=== PATIENT | female | born 1950 | race Caucasian/White ===

== ENCOUNTER 2016-11-20 00:28 | Inpatient (IN) | payer OTHER ==
[2016-11-20] VITALS (10 sets, daily range): BP systolic 103–129; BP diastolic 53–83; PULSE 60–63; RESP 17–19; Ht 165.1 cm; Wt 71.5 kg
[~2016-11-20] VITALS: Ht 165.1 cm; Wt 71.5 kg
[2016-11-20] MEDS ORDERED: SOD CHLORIDE 0.9% 1,000 ML IV STA (00:54)
--- NOTE | 2016-11-20 01:43 | RADRPT ---
PROCEDURE: CT Brain without contrast. CLINICAL INDICATION: Headache, left-sided weakness. TECHNIQUE: A CT of the brain was performed utilizing axial sections from the skull base through th e vertex without contrast. Multiplanar re-formations were generated. Images were reviewed on a high- resolution PACS workstation. CTDIvol: 44.11, 44.11 mGy. DLP: 1170.37 mGy-cm. One or more of the following dose reduction techniques were used: - Automated exposure control. - Adjustment of the mA and/or kV according to patient size. - Use of iterative reconstruction technique. COMPARISON: None available FINDINGS: The examination is limited by patient motion. There is no cerebral volume loss. No hydrocephalus is seen. There is no mass effect. No acute intracranial hemorrhage or extra-axial collection is identi fied. A moderate sized chronic right MCA territory infarction is identified. A small chronic left pa rietal lobe infarction is also noted. There is There is no significant mucosal disease in the paranasal sinuses. The visualized mastoid air cells are clear. The ossesous structures are unremarkable. The extracranial soft tissues are unremarkable. IMPRESSION: 1. Limited examination due to patient motion. 2. No acute intracranial pathology is identified, however a repeat CT scan should be obtained when the patient can lie still. 3. Moderate sized chronic right MCA territory infarction. 4. Small chronic left parietal lobe infarction. Critical Results were called to Dr. Cesar at 01:39 a.m. on 11/20/2016. RPTAT: HTAR .Carl Longo MD, MD Date Time Electronically viewed and signed by .Carl Longo MD, on 11/20/2016 01:42 .R/
--- NOTE | 2016-11-20 01:44 | RADRPT ---
PROCEDURE: XR Chest. CLINICAL INDICATION: Altered level of consciousness.. TECHNIQUE: Single frontal chest x-ray. COMPARISON: None. FINDINGS: Right subclavian biventricular pacemaker is present. Heart is mildly enlarged.. There is atheroscl erotic calcifications aortic knob. There is hypoventilation with diffuse ileus. No definite CHF or infiltrate. There is no pleural effusion. There is no pneumothorax. The osseous structures are u nremarkable. IMPRESSION: Right subclavian pacemaker. Cardiomegaly. Hypoventilation with atelectasis. RPTAT: HMVK .Luis Haynes MD, Date Time Electronically viewed and signed by .Luis Haynes MD, on 11/20/2016 01:44 .K/
[2016-11-20] MEDS ORDERED: ACETAMINOPHEN 325 MG TAB PO ONE (03:30)
[2016-11-20 03:36] LABS: ADD SCAN DIFF NO
[2016-11-20 03:39] LABS: BASOPHILS % 0.8 % (0.0-2.0); EOSINOPHILS # 0.2 10^3/ul (0.0-0.5); EOSINOPHILS % 4.5 % (0.0-7.0); HEMATOCRIT 36.9 % (37.0-47.0); HEMOGLOBIN 11.9 g/dl (12.0-16.0); LYMPHOCYTES # 1.7 10^3/ul (0.8-2.9); LYMPHOCYTES % 34.6 % (15.0-51.0); MEAN CORPUSCULAR HEMOGLOBIN 31.2 pg (29.0-33.0); MEAN CORPUSCULAR HGB CONC 32.2 g/dl (32.0-37.0); MEAN CORPUSCULAR VOLUME 96.6 fl (82.0-101.0); MEAN PLATELET VOLUME 10.6 fl (7.4-10.4); MONOCYTE # 0.4 10^3/ul (0.3-0.9); MONOCYTES % 8.4 % (0.0-11.0); NEUTROPHIL # 2.5 10^3/ul (1.6-7.5); NEUTROPHILS % 51.5 % (39.0-77.0); PLATELET COUNT 141 10^3/UL (140-415); RED BLOOD COUNT 3.82 10^6/ul (4.20-5.40); RED CELL DISTRIBUTION WIDTH 14.1 % (11.5-14.5); WHITE BLOOD COUNT 4.9 10^3/ul (4.8-10.8)
[2016-11-20 03:51] LABS: CHLORIDE 106 mmol/L (97-110); POTASSIUM 4.1 mmol/L (3.5-5.1); SODIUM 144 mmol/L (135-144)
[2016-11-20 03:54] LABS: ANION GAP 11 (8-16); BLOOD UREA NITROGEN 14 mg/dl (7-20); CARBON DIOXIDE 31 mmol/L (21-31); CREATININE 0.71 mg/dl (0.44-1.00)
[2016-11-20 03:55] LABS: CALCIUM 8.7 mg/dl (8.4-10.2); GLUCOSE 87 mg/dl (70-220)
[2016-11-20 04:07] LABS: INR 0.95; PARTIAL THROMBOPLASTIN TIME 28.5 Sec (25.0-35.0); PROTIME 12.7 Sec (12.2-14.2)
[2016-11-20 04:11] LABS: TROPONIN-I < 0.012 ng/ml (0.00-0.12)
[2016-11-20] MEDS ORDERED: DIPHENHYDRAMINE 50 MG CAP PO ONE (05:00)
[2016-11-20 05:18] LABS: ADD UMIC YES; URINE BILIRUBIN (Dip) NEGATIVE (NEGATIVE); URINE BLOOD (Dip) NEGATIVE (NEGATIVE); URINE COLOR LT. YELLOW (YELLOW); URINE GLUCOSE (Dip) NEGATIVE (NEGATIVE); URINE KETONES (Dip) NEGATIVE (NEGATIVE); URINE LEUKOCYTE ESTERASE (Dip) TRACE (NEGATIVE); URINE NITRITE (Dip) NEGATIVE (NEGATIVE); URINE TOTAL PROTEIN (Dip) NEGATIVE (NEGATIVE); URINE UROBILINOGEN (Dip) 0.2 E.U./dL (0.1-1.0)
[2016-11-20 05:30] LABS: BACTERIA,URINE RARE; SQUAMOUS EPITHELIAL CELL,UR FEW; URINE RBCS 0-2 /HPF (0)
[2016-11-20] MEDS ORDERED: ONDANSETRON 4 MG INJ IV PRN (05:30)
[2016-11-20] MEDS ORDERED: ACETAMINOPHEN 325 MG TAB PO PRN ×2 (05:30→07:00)
--- NOTE | 2016-11-20 05:35 | ERA ---
ER Documentation Chief Complaint Date/Time DATE: 11/20/16 TIME: 05:25 Chief Complaint HELENA RA from home, c/o BYRNES,left leg numbness and tingling HPI 66-year-old female comes emergency room for having numbness and tingling along the lateral left lower leg. And is began 24 hours ago. She also complains of a generalized headache. She states that she does get headaches from time to time. This headache came on gradually and is not the worst headache of her life. She does say that she would like morphine for her headache. She has no dizziness or visual deficits. Denies chest pain shortness of breath fevers. She also has no nausea. ROS All systems reviewed and are negative except as per history of present illness. Allergies Allergies: Coded Allergies: Penicillins (Verified Allergy, Unknown, 11/20/16) PMhx/Soc History of Surgery: Yes (TOTAL HYSTERECTOMY, CHOLECYSTECTOMY) Hx Neurological Disorder: Yes (CVA, TIA) Hx Alcohol Use: No Hx Substance Use: No Hx Tobacco Use: No Smoking Status: Never smoker Physical Exam Vitals Vital Signs Date Time Temp Pulse Resp B/P Pulse Ox O2 Delivery O2 Flow Rate FiO2 11/20/16 04:32 60 18 116/68 98 Room Air 11/20/16 03:05 62 18 120/62 100 11/20/16 01:02 Nasal Cannula 3 11/20/16 00:30 98.6 70 18 129/60 95 Physical Exam Const: [] No distress Head: Atraumatic Eyes: Normal Conjunctiva ENT: Normal External Ears, Nose and Mouth. Neck: Full range of motion..~ No meningismus. Resp: Clear to auscultation bilaterally Cardio: Regular rate and rhythm, no murmurs Abd: Soft, non tender, non distended. Normal bowel sounds Skin: No petechiae or rashes Back: No midline or flank tenderness Ext: No cyanosis, or edema Neur: Awake and alert and oriented 3, cranial nerves II through XII intact, no cerebellar deficits, campus interviews intern strength on left side 4 out of 5 otherwise 5 out of 5 strength all extremities distally and proximally, sensation intact left lower extremity but states that it feels different on her lower leg in the left than a dozen the right. NIH score of 3 Psych: Normal Mood and Affect Result Diagram: 11/20/16 0331 11/20/16 0331 Results 24 hrs Laboratory Tests Test 11/20/16 03:14 11/20/16 03:31 Bedside Glucose 89mg/dL White Blood Count 4.910^3/ul Red Blood Count 3.8210^6/ul Hemoglobin 11.9g/dl Hematocrit 36.9% Mean Corpuscular Volume 96.6fl Mean Corpuscular Hemoglobin 31.2pg Mean Corpuscular Hemoglobin Concent 32.2g/dl Red Cell Distribution Width 14.1% Platelet Count 08086^3/UL Mean Platelet Volume 10.6fl Neutrophils % 51.5% Lymphocytes % 34.6% Monocytes % 8.4% Eosinophils % 4.5% Basophils % 0.8% Nucleated Red Blood Cells % 0.0/100WBC Neutrophils # 2.510^3/ul Lymphocytes # 1.710^3/ul Monocytes # 0.410^3/ul Eosinophils # 0.210^3/ul Basophils # 0.010^3/ul Nucleated Red Blood Cells # 0.010^3/ul Prothrombin Time 12.7Sec Prothrombin Time Ratio 1.0 INR International Normalized Ratio 0.95 Activated Partial Thromboplast Time 28.5Sec Sodium Level 144mmol/L Potassium Level 4.1mmol/L Chloride Level 106mmol/L Carbon Dioxide Level 31mmol/L Anion Gap 11 Blood Urea Nitrogen 14mg/dl Creatinine 0.71mg/dl Glucose Level 87mg/dl Hemoglobin A1c 5.3% Calcium Level 8.7mg/dl Troponin I < 0.012ng/ml Current Medications Medications (Trade) Dose Ordered Sig/Neelam Route PRN Reason Start Time Stop Time Status Last Admin Dose Admin Sodium Chloride (NS) 1,000 ml @ 1,000 mls/hr Q1H STAT IV 11/20/16 00:54 11/20/16 01:53 DC 11/20/16 00:54 Acetaminophen (Tylenol Tab) 650 mg ONCE ONCE PO 11/20/16 03:30 11/20/16 03:31 DC 11/20/16 03:35 Diphenhydramine HCl (Benadryl) 50 mg ONCE ONCE PO 11/20/16 05:00 11/20/16 05:01 DC 11/20/16 04:41 Ondansetron HCl (Zofran Inj) 4 mg ER BRIDGE PRN IV NAUSEA AND/OR VOMITING 11/20/16 05:30 11/21/16 05:29 Acetaminophen (Tylenol Tab) 650 mg ER BRIDGE PRN PO MILD PAIN/FEVER 11/20/16 05:30 11/21/16 05:29 Procedures/MDM Elderly female with history of a stroke coming in for strokelike symptoms for 2 days. She is out of the window for TPA or endovascular. States that she is allergic to aspirin is not taking any Plavix currently. Initial CT had severe motion artifact and cannot exclude hemorrhage. Patient was given for Tylenol for headache which helped. She requested something for sleep was given by mouth Benadryl as well as age is given a liter of normal saline. Her vital signs remained stable in our upon the repeat neural exams with no change in her exam. NIH is still 3. Patient will be admitted to telemetry for further monitoring of possible ablation of stroke in a patient with stroke. She'll be given 300 mg by mouth Plavix and her repeat CT returns without hemorrhage. A spoke with Dr. Babin will be admitting the patient to telemetry. EKG interpretation: Paced rhythm rate of 60, no ST or T-wave changes concerning for acute ischemia, normal intervals, L axis deviation. bus monitor interpretation: 60. His rhythm without arrhythmia Chest x-ray interpretation: Low lung volumes without infiltrate, pulmonary edema , pneumothorax, pacemaker in place. No fractures CT head interpretation: All stroke visible with motion artifact preventing adequate evaluation of hemorrhage or acute process. Departure Diagnosis: Primary Impression: Acute CVA (cerebrovascular accident) Condition: PARISA Rasheed DO Nov 20, 2016 05:35
[2016-11-20 06:01] LABS: BARBITURATES Negative (NEGATIVE); BENZODIAZEPINES Positive (NEGATIVE); CANNABINOIDS Negative (NEGATIVE); COCAINE Negative (NEGATIVE); OPIATES Positive (NEGATIVE)
--- NOTE | 2016-11-20 06:15 | HP ---
Date/Time of Note Date/Time of Note DATE: 11/20/16 TIME: 06:15 Assessment/Plan VTE Prophylaxis VTE Prophylaxis Intervention: anti-embolic stocking Lines/Catheters IV [facility] Saline Lock Assessment/Plan Assessment/Plan 1) Acute Cerebrovascular Accident - ADMIT to [facility] - Carotid Duplex - Echocardiogram - PT/OT and ST evaluations - AM Labs: CBC, BMP HPI/ROS Admit Date/Time Admit Date/Time 11/20/16 0509 Hx of Present Illness HELENA RA from home, c/o BYRNES,left leg numbness and tingling HPI 66-year-old female comes emergency room for having numbness and tingling along the lateral left lower leg. And is began 24 hours ago. She also complains of a generalized headache. She states that she does get headaches from time to time. This headache came on gradually and is not the worst headache of her life. She does say that she would like morphine for her headache. She has no dizziness or visual deficits. Denies chest pain shortness of breath fevers. She also has no nausea. ER Course per ER Physician: Elderly female with history of a stroke coming in for strokelike symptoms for 2 days. She is out of the window for TPA or endovascular. States that she is allergic to aspirin is not taking any Plavix currently. Initial CT had severe motion artifact and cannot exclude hemorrhage. Patient was given for Tylenol for headache which helped. She requested something for sleep was given by mouth Benadryl as well as age is given a liter of normal saline. Her vital signs remained stable in our upon the repeat neural exams with no change in her exam. NIH is still 3. Patient will be admitted to telemetry for further monitoring of possible ablation of stroke in a patient with stroke. She'll be given 300 mg by mouth Plavix and her repeat CT returns without hemorrhage. A spoke with Dr. Lafleur will be admitting the patient to telemetry. ROS General: Admits: Denies: Fever, Chills, Poor Appetite, Generalized Body Aches Eyes: Admits: Denies: Blurry Vision, Double Vision HENT: Admits: Denies: Ear Pain/Pressure, Runny/Stuffy Nose, Sore Throat Cardiovascular: Admits: Denies: Chest Pain, Palpitations, Leg Swelling Pulmonary: Admits: Denies: Cough, Wheeze, Shortness of Breath Gastrointestinal: Admits: Denies: Abdominal Pain, Nausea, Vomiting, Diarrhea, Blood in Stool, Black-Colored Stool Urogenital: Admits: Denies: Burning with Urination, Urinary Frequency, Blood in Urine Musculoskeletal: Admits: Denies: Joint Pain, Joint Swelling, Muscle Pain Neurological: Admits: Headache, Numbness, Tingling Denies: Dizziness, Shooting Pains Integumentary: Admits: Denies: Rash, Itch PMH/Family/Social Past Medical History CVA; TIA Past Surgical History TOTAL HYSTERECTOMY; CHOLECYSTECTOMY Social History Alcohol Use: none Smoking Status: Never smoker Drug Use: none Exam/Review of Systems Vital Signs Vitals Vital Signs Date Time Temp Pulse Resp B/P Pulse Ox O2 Delivery O2 Flow Rate FiO2 11/20/16 05:54 59 16 124/60 99 Room Air 11/20/16 01:02 3 11/20/16 00:30 98.6 Exam Exam General: WD/WN 66 year old female, alert and oriented, in no acute distress Eyes: Sclera White, EOMI HENT: Normocephalic/Atraumatic, External Ears/Nose Normal, Moist Mucus Membranes Neck: Supple, Trachea Midline Cardiovascular: Normal Rate, Regular Rhythm, Normal S1 and S2, No Murmur, No Extra Sounds. Radial pulse +2/4. No pedal Edema. Pulmonary: Clear to Auscultation Bilaterally, Normal Respiratory Effort, No Rales, Rhonchi or Wheezes Gastrointestinal: Normoactive Bowel Sounds, Soft, Non-Tender/Non-Distended, No Hepatosplenomegaly Appreciated, No Pulsatile Masses Urogenital: Deferred Musculoskeletal: Normal Muscle Bulk and Tone Neurological: CN II - XII Intact, Non-Focal, Speech Normal, Bilateral Upper/ Lower Strength +5/5 except Left Spud Driller Strength +4/5. Light sensation intact, but patient reports left lower extremity feels different than on the right. Integumentary: Normal Moisture and Temperature, Good Turgor, No Jaundice, No Rash Lymphatic: No Cervical Lymphadenopathy Psychiatric: Appropriate Mood and Affect, Good Eye Contact Labs Result Diagram: 11/20/1633011/20/16330 Medications Medications Current Medications Medications (Trade) Dose Ordered Sig/Neelam Route PRN Reason Start Time Stop Time Status Last Admin Dose Admin Sodium Chloride (NS) 1,000 ml @ 1,000 mls/hr Q1H STAT IV 11/20/16 00:54 11/20/16 01:53 DC 11/20/16 00:54 Acetaminophen (Tylenol Tab) 650 mg ONCE ONCE PO 11/20/16 03:30 11/20/16 03:31 DC 11/20/16 03:35 Diphenhydramine HCl (Benadryl) 50 mg ONCE ONCE PO 11/20/16 05:00 11/20/16 05:01 DC 11/20/16 04:41 Ondansetron HCl (Zofran Inj) 4 mg ER BRIDGE PRN IV NAUSEA AND/OR VOMITING 11/20/16 05:30 11/21/16 05:29 Acetaminophen (Tylenol Tab) 650 mg ER BRIDGE PRN PO MILD PAIN/FEVER 11/20/16 05:30 11/21/16 05:29 Procedures Procedures Laboratory Tests Test 11/20/16 03:14 11/20/16 03:31 Bedside Glucose 89mg/dL White Blood Count 4.910^3/ul Red Blood Count 3.8210^6/ul Hemoglobin 11.9g/dl Hematocrit 36.9% Mean Corpuscular Volume 96.6fl Mean Corpuscular Hemoglobin 31.2pg Mean Corpuscular Hemoglobin Concent 32.2g/dl Red Cell Distribution Width 14.1% Platelet Count 42397^3/UL Mean Platelet Volume 10.6fl Neutrophils % 51.5% Lymphocytes % 34.6% Monocytes % 8.4% Eosinophils % 4.5% Basophils % 0.8% Nucleated Red Blood Cells % 0.0/100WBC Neutrophils # 2.510^3/ul Lymphocytes # 1.710^3/ul Monocytes # 0.410^3/ul Eosinophils # 0.210^3/ul Basophils # 0.010^3/ul Nucleated Red Blood Cells # 0.010^3/ul Prothrombin Time 12.7Sec Prothrombin Time Ratio 1.0 INR International Normalized Ratio 0.95 Activated Partial Thromboplast Time 28.5Sec Sodium Level 144mmol/L Potassium Level 4.1mmol/L Chloride Level 106mmol/L Carbon Dioxide Level 31mmol/L Anion Gap 11 Blood Urea Nitrogen 14mg/dl Creatinine 0.71mg/dl Glucose Level 87mg/dl Hemoglobin A1c 5.3% Calcium Level 8.7mg/dl Troponin I < 0.012ng/ml EKG: Interpretation per ER Physician Paced rhythm rate of 60, no ST or T-wave changes concerning for acute ischemia, normal intervals, L axis deviation. RADIOLOGY: PROCEDURE: CT BRAIN WITHOUT CONTRAST November 20, 2016 at 05:59 a.m. CLINICAL INDICATION: 66-year-old female with left-sided weakness. The study was repeated secondary to motion artifact on the prior examination. COMPARISON: CT brain November 20, 2016 performed at 01:31 a.m. IMPRESSION: 1. [id number] diffuse atrophy. 2. Microangiopathic ischemic changes. 3. Old right middle cerebral artery branch distribution infarct. 4. Small focal left parietal watershed infarct. 5. Vascular calcifications. PROCEDURE: CT Brain without contrast. CLINICAL INDICATION: Headache, left-sided weakness. COMPARISON: None available IMPRESSION: 1. Limited examination due to patient motion. 2. No acute intracranial pathology is identified, however a repeat CT scan should be obtained when the patient can lie still. 3. Moderate sized chronic right MCA territory infarction. 4. Small chronic left parietal lobe infarction. PROCEDURE: XR Chest. CLINICAL INDICATION: Altered level of consciousness.. TECHNIQUE: Single frontal chest x-ray. COMPARISON: None. FINDINGS: Right subclavian biventricular pacemaker is present. Heart is mildly enlarged.. There is atherosclerotic calcifications aortic knob. There is hypoventilation with diffuse ileus. No definite CHF or infiltrate. There is no pleural effusion. There is no pneumothorax. The osseous structures are unremarkable. IMPRESSION: Right subclavian pacemaker. Cardiomegaly. Hypoventilation with atelectasis. MARIA M LAFLEUR DO Nov 20, 2016 06:15 MARIA M LAFLEUR DO Nov 20, 2016 06:15
--- NOTE | 2016-11-20 06:35 | RADRPT ---
PROCEDURE: CT BRAIN WITHOUT CONTRAST November 20, 2016 at 05:59 a.m. CLINICAL INDICATION: 66-year-old female with left-sided weakness. The study was repeated secondar y to motion artifact on the prior examination. TECHNIQUE: The study was performed utilizing [employer] VCT 64-slice CT scanner. Direct axial sections were obtained from the foramen magnum to the vertex without the use of intravenous contrast material. Sagittal and coronal reformations were obtained. Sagittal and coronal reformations were obtained. One or more the following dose reduction techniques were utilized: automated exposure cont rol, adjustment of the mA and/or kV according to patient's size or use of iterative reconstruction t echnique. The images were viewed on a PACS workstation. CTD/vol = 44.8 mGy; Total Exam DLP = 720.2 mGy-cm. COMPARISON: CT brain November 20, 2016 performed at 01:31 a.m. FINDINGS: There is extensive encephalomalacia identified within the right temporal and parietal opercular gabi ons consistent with a prior right middle cerebral artery branch distribution infarct. There is a sm all focus of encephalomalacia within the left parietal region consistent with a old watershed infarc t. There is [id number]-ejbciirb degree of diffuse cortical and central atrophy with compensatory ventr icular enlargement. There is no evidence for mass effect or midline shift. There are periventricul ar areas of decreased density consistent with microangiopathic ischemic changes. There is no eviden ce for acute intra or extra-axial blood. Calcifications are seen within the intracranial carotid art eries bilaterally. The bony calvarium is intact. The partially visualized paranasal sinuses and mast oid air cells are without significant abnormal soft tissue. IMPRESSION: 1. Evxo-to-vgfnayxk diffuse atrophy. 2. Microangiopathic ischemic changes. 3. Old right middle cerebral artery branch distribution infarct. 4. Small focal left parietal watershed infarct. 5. Vascular calcifications. .Ten Mcnulty MD, Date Time Electronically viewed and signed by .Ten Mcnulty MD, MD on 11/20/2016 06:34 .M/
[2016-11-20] MEDS ORDERED: HYDROCODONE/APAP (5/325) TAB PO PRN (07:00)
[2016-11-20] MEDS ORDERED: NACL 0.9% 3 ML SYG IV SCH (07:00)
[2016-11-20] MEDS ORDERED: NITROGLYCERIN (SL) 0.4 MG TAB SL PRN (07:00)
[2016-11-20] MEDS: FAMOTIDINE 20 MG TAB PO SCH ×3 (09:00→22:04)
--- NOTE | 2016-11-20 09:57 | PN ---
Date/Time of Note Date/Time of Note DATE: 11/20/16 TIME: 09:53 Assessment/Plan VTE Prophylaxis VTE Prophylaxis Intervention: heparin Lines/Catheters IV [facility] Saline Lock Assessment/Plan Problems: (1) Moderate early onset dysthymic disorder, in partial remission, with anxious distress, with persistent major depressive episode Status: Chronic Comment: Continue antidepressant along with the nocturnal trazodone. Continue observation carefully. (2) Acute CVA (cerebrovascular accident) Status: Acute Comment: She is a prior history of CVA and now has new symptoms. We will go ahead and do echocardiogram as well as carotid duplex study. Physical therapy occupational therapy evaluations. Briefly she will be in and out cath to avoid making her get around. (3) History of right MCA stroke Status: Chronic Comment: As above Subjective 24 Hr Interval Summary Free Text/Dictation 66-year-old female lying in bed. She reports that her symptoms started on Tuesday with left-sided numbness. She reports a history of TIAs. She is in the process of changing physicians and is largely been treated in the clinic system for the [facility]. Has not had consistent care. Reports from home medications as an antidepressant; trazodone 100 nightly; vitamins. She was not on any type of anticoagulant therapy. She has not had a recent echocardiogram and she has never had a carotid duplex study. At this time she reports she feels relatively the same as yesterday. Respiratory: no complaints Cardiovascular: no complaints Gastrointestinal: no complaints Genitourinary: no complaints Exam/Review of Systems Vital Signs Vitals Vital Signs Date Time Temp Pulse Resp B/P Pulse Ox O2 Delivery O2 Flow Rate FiO2 11/20/16 08:23 60 11/20/16 07:20 97.7 18 129/83 97 Room Air 11/20/16 01:02 3 Exam Constitutional: alert, oriented Neck: non-tender, other (No audible bruits), supple Respiratory: clear to auscultation, normal air movement Cardiovascular: nl pulses, regular rate and rhythm Gastrointestinal: nl liver, spleen, non-tender, soft Neurological: ESTIMATOR LUMBER II-XII intact, nl mental status, nl speech, nl strength ( Modest left-sided weakness. Is unclear whether this is old or new) Results Result Diagram: 11/20/16 0331 11/20/16 0331 Results 24 hrs Laboratory Tests Test 11/20/16 03:14 11/20/16 03:31 11/20/16 04:30 Bedside Glucose 89 White Blood Count 4.9 Red Blood Count 3.82 L Hemoglobin 11.9 L Hematocrit 36.9 L Mean Corpuscular Volume 96.6 Mean Corpuscular Hemoglobin 31.2 Mean Corpuscular Hemoglobin Concent 32.2 Red Cell Distribution Width 14.1 Platelet Count 141 Mean Platelet Volume 10.6 H Neutrophils % 51.5 Lymphocytes % 34.6 Monocytes % 8.4 Eosinophils % 4.5 Basophils % 0.8 Nucleated Red Blood Cells % 0.0 Neutrophils # 2.5 Lymphocytes # 1.7 Monocytes # 0.4 Eosinophils # 0.2 Basophils # 0.0 Nucleated Red Blood Cells # 0.0 Prothrombin Time 12.7 Prothrombin Time Ratio 1.0 INR International Normalized Ratio 0.95 Activated Partial Thromboplast Time 28.5 Sodium Level 144 Potassium Level 4.1 Chloride Level 106 Carbon Dioxide Level 31 Anion Gap 11 Blood Urea Nitrogen 14 Creatinine 0.71 Glucose Level 87 Hemoglobin A1c 5.3 Calcium Level 8.7 Troponin I < 0.012 Urine Color LT. YELLOW Urine Clarity CLEAR Urine pH 6.5 Urine Specific [place] 1.020 Urine Ketones NEGATIVE Urine Nitrite NEGATIVE Urine Bilirubin NEGATIVE Urine Urobilinogen 0.2 E.U./dL Urine Leukocyte Esterase TRACE H Urine Microscopic RBC 0-2 Urine Microscopic WBC 0-2 Urine Squamous Epithelial Cells FEW Urine Bacteria RARE Urine Hemoglobin NEGATIVE Urine Glucose NEGATIVE Urine Total Protein NEGATIVE Urine Opiates Screen Positive Urine Barbiturates Negative Urine Amphetamines Screen Negative Urine Benzodiazepines Screen Positive Urine Cocaine Screen Negative Urine Cannabinoids Negative Medications Medications Current Medications Lorazepam (Ativan) 0.5 mg Q8H PRN PO ANXIETY; Start 11/20/16 at 07:00 Nitroglycerin (Nitroglycerin (Sl Tab) 0.4 Mg) 1 tab Q5M PRN SL CHEST PAIN; Start 11/20/16 at 07:00 Acetaminophen (Tylenol Tab) 650 mg Q6H PRN PO PAIN LEVEL 1-3 OR FEVER; Start at 07:00 Acetaminophen/ Hydrocodone Bitart ([place] (5/325)) 1 tab Q6H PRN PO PAIN LEVEL 4 -6; Start 11/20/16 at 07:00 Acetaminophen/ Hydrocodone Bitart ([place] (5/325)) 2 tab Q6H PRN PO PAIN LEVEL 7 -10; Start 11/20/16 at 07:00 Famotidine (Pepcid) 20 mg Q12 PO ; Start 11/20/16 at 09:00 PARISA BHAGAT MD Nov 20, 2016 09:57
[2016-11-20] MEDS: SERTRALINE 50 MG TAB PO SCH (10:59)
[2016-11-20] MEDS: CLOPIDOGREL 75 MG TAB PO SCH (10:59)
[2016-11-20] MEDS: HYDROCODONE/APAP (5/325) TAB PO PRN ×2 (11:00→17:34)
[2016-11-20] MEDS ORDERED: CLOP75TA4 PO (12:47)
[2016-11-20] MEDS ORDERED: OLAN5TAB5 PO (12:47)
[2016-11-20] MEDS ORDERED: IRON (12:47)
[2016-11-20] MEDS ORDERED: SENN-53 PO (12:47)
[2016-11-20] MEDS ORDERED: IMO2 PO (12:47)
[2016-11-20] MEDS ORDERED: NAPR550T3 PO (12:47)
[2016-11-20] MEDS ORDERED: ATOR40TA68 PO (12:47)
[2016-11-20] MEDS ORDERED: MV C PO (12:47)
[2016-11-20] MEDS ORDERED: SERT50TA6 PO (12:47)
--- NOTE | 2016-11-20 13:03 | RADRPT ---
PROCEDURE: Carotid ultrasound CLINICAL INDICATION: Stroke, carotid bruits TECHNIQUE: Romero scale, color doppler, spectral doppler ultrasound of the bilateral carotid and farida tebral arteries. This study indirectly references the measurement of the distal ICA diameter as the denominator for s tenosis measurement. Validated velocity measurements with angiographic measurements, velocity criter ia are extrapolated from diameter data as defined by: *Cartoid artery stenosis: romero-scale and Doppl er US diagnosis. Society of Radiologists in Ultrasound Consensus Conference. Radiology 2003; 229: 34 0-346. SRU Consensus Conference Criteria for the Diagnosis of Carotid Artery Stenosis* Degree of Stenosis, % ICA PSV, cm/sec Plaque Estimate, % ICA/CCA PSV Ratio Normal <125 None <2.0 <50 <125 <50 <2.0 50 69 125-230 >50 2.0-4.0 >70 but less than near occlusion >230 >50 <4.0 Near occlusion High, low, or undetectable Visible Variable Total occlusion Undetectable Visible, no detectable lumen Not applicable COMPARISON: No prior studies are available for comparison. FINDINGS: Location Right CCA50 cm/sec Prox ICA 46 cm/sec Mid ICA47 cm/sec Dist ICA48 cm/sec ECA49 cm/sec ICA/CCA1.0 Left CCA62 cm/sec Prox ICA 72 cm/sec Mid ICA70 cm/sec Dist ICA43 cm/sec ECA39 cm/sec ICA/CCA1.2 Plaque burden: A small amount of plaque is present within the visualized portions of both internal c arotid arteries however there is no evidence of flow acceleration to suggest a hemodynamically signi ficant stenosis. Antegrade flow is seen within the vertebral arteries bilaterally. IMPRESSION: A small amount of plaque is present within the visualized portions of both internal carotid arteries however there is no evidence of flow acceleration to suggest a hemodynamically significant stenosis . RPTAT: AADD .Brenden Mckeon MD, Date Time Electronically viewed and signed by .Brenden Mckeon MD, on 11/20/2016 13:03 .B/
[2016-11-20] MEDS: traZODone 100 MG TAB PO SCH (22:07)
[2016-11-20] MEDS: LORAZEPAM 0.5 MG TAB PO PRN (22:32)
[2016-11-21] VITALS (11 sets, daily range): BP systolic 104–113; BP diastolic 41–58; PULSE 60–62; RESP 17–20
[2016-11-21] MEDS: HYDROCODONE/APAP (5/325) TAB PO PRN ×4 (02:25→22:05)
[2016-11-21] MEDS: SERTRALINE 50 MG TAB PO SCH (08:44)
[2016-11-21] MEDS: FAMOTIDINE 20 MG TAB PO SCH ×2 (08:44→19:33)
[2016-11-21] MEDS: CLOPIDOGREL 75 MG TAB PO SCH (08:44)
[2016-11-21 10:07] LABS: ADD SCAN DIFF NO
[2016-11-21 10:11] LABS: ABNORMAL IP MESSAGE 1; HEMATOCRIT 36.4 % (37.0-47.0); HEMOGLOBIN 11.7 g/dl (12.0-16.0); MEAN CORPUSCULAR HGB CONC 32.1 g/dl (32.0-37.0); MEAN CORPUSCULAR VOLUME 96.6 fl (82.0-101.0); MEAN PLATELET VOLUME 10.6 fl (7.4-10.4); RED BLOOD COUNT 3.77 10^6/ul (4.20-5.40); WHITE BLOOD COUNT 6.2 10^3/ul (4.8-10.8)
[2016-11-21 10:13] LABS: PLATELET COUNT 98 10^3/UL (140-415)
[2016-11-21 10:28] LABS: POTASSIUM 4.1 mmol/L (3.5-5.1)
[2016-11-21 10:31] LABS: CREATININE 0.68 mg/dl (0.44-1.00)
[2016-11-21 10:32] LABS: CALCIUM 8.7 mg/dl (8.4-10.2); CHOL/HDL RATIO 2.5 RATIO
--- NOTE | 2016-11-21 11:01 | PN ---
Date/Time of Note Date/Time of Note DATE: 11/21/16 TIME: 10:59 Assessment/Plan VTE Prophylaxis VTE Prophylaxis Intervention: LMWH Lines/Catheters [facility] Urinary Cath still in place: No Assessment/Plan Problems: (1) Acute CVA (cerebrovascular accident) Status: Acute Comment: Stable and doing relatively well. Speech therapy has evaluated the patient physical therapy is pending as is OT. We will try and get that evaluated and then the disposition plan going she is stable. (2) Moderate early onset dysthymic disorder, in partial remission, with anxious distress, with persistent major depressive episode Status: Chronic Comment: She is on her medication therapy (3) History of right MCA stroke Status: Chronic Comment: Noted Subjective 24 Hr Interval Summary Free Text/Dictation Patient reports she is stable. No new complaint Constitutional: no complaints Respiratory: no complaints Cardiovascular: no complaints Gastrointestinal: no complaints Exam/Review of Systems Vital Signs Vitals Vital Signs Date Time Temp Pulse Resp B/P Pulse Ox O2 Delivery O2 Flow Rate FiO2 11/21/16 08:31 98.3 60 18 110/58 93 11/20/16 07:20 Room Air 11/20/16 01:02 3 Intake and Output 11/20/16 11/20/16 11/21/16 15:00 23:00 07:00 Intake Total 500 ml 480 ml Output Total 1800 ml Balance -1300 ml 480 ml Exam Constitutional: alert, oriented Neck: non-tender, supple Respiratory: clear to auscultation, normal air movement Cardiovascular: nl pulses, regular rate and rhythm Gastrointestinal: nl liver, spleen, non-tender, soft Results Result Diagram: 11/21/16 1000 11/21/16 1000 Results 24 hrs Laboratory Tests Test 11/21/16 10:00 White Blood Count 6.2 # Red Blood Count 3.77 L Hemoglobin 11.7 L Hematocrit 36.4 L Mean Corpuscular Volume 96.6 Mean Corpuscular Hemoglobin 31.0 Mean Corpuscular Hemoglobin Concent 32.1 Red Cell Distribution Width 14.0 Platelet Count 98 #L Mean Platelet Volume 10.6 H Sodium Level 139 Potassium Level 4.1 Chloride Level 106 Carbon Dioxide Level 24 Anion Gap 13 Blood Urea Nitrogen 11 Creatinine 0.68 Glucose Level 136 # Calcium Level 8.7 Triglycerides Level 138 Cholesterol Level 101 LDL Cholesterol, Calculated 34 HDL Cholesterol 39 Cholesterol/HDL Ratio 2.5 Medications Medications Current Medications Lorazepam (Ativan) 0.5 mg Q8H PRN PO ANXIETY Last administered on 11/20/16 22: 32; Admin Dose 0.5 MG; Start 11/20/16 at 07:00 Nitroglycerin (Nitroglycerin (Sl Tab) 0.4 Mg) 1 tab Q5M PRN SL CHEST PAIN; Start 11/20/16 at 07:00 Acetaminophen (Tylenol Tab) 650 mg Q6H PRN PO PAIN LEVEL 1-3 OR FEVER; Start at 07:00 Acetaminophen/ Hydrocodone Bitart ([place] (5/325)) 1 tab Q6H PRN PO PAIN LEVEL 4 -6; Start 11/20/16 at 07:00 Acetaminophen/ Hydrocodone Bitart ([place] (5/325)) 2 tab Q6H PRN PO PAIN LEVEL 7 -10 Last administered on 11/21/16 09:40; Admin Dose 2 TAB; Start 11/20/16 at 07 :00 Famotidine (Pepcid) 20 mg Q12 PO Last administered on 11/21/16 08:44; Admin Dose 20 MG; Start 11/20/16 at 09:00 Clopidogrel Bisulfate (plaVIX) 75 mg DAILY PO Last administered on 11/21/16 08 :44; Admin Dose 75 MG; Start 11/20/16 at 10:00 Trazodone HCl (Desyrel) 100 mg HS PO Last administered on 11/20/16 22:07; Admin Dose 100 MG; Start 11/20/16 at 21:00 Sertraline HCl (Zoloft) 50 mg DAILY PO Last administered on 11/21/16 08:44; Admin Dose 50 MG; Start 11/20/16 at 11:00 PARISA BHAGAT MD Nov 21, 2016 11:01
[2016-11-21 12:13] LABS: EOSINOPHILS # 0.1 10^3/ul (0.0-0.5); LYMPHOCYTES # 1.4 10^3/ul (0.8-2.9); MONOCYTE # 0.1 10^3/ul (0.3-0.9); NEUTROPHIL # 4.4 10^3/ul (1.6-7.5)
[2016-11-21 12:14] LABS: PLATELET ESTIMATE PLT APPEAR DECREASED
--- NOTE | 2016-11-21 16:37 | RADRPT ---
Echocardiogram Report Patient Name: CRISTINA RICHARD Gender: Female Date: 1950 Study Date: 20-Nov-2016 Raw Material Handler: [facility] Location: [id number] Ref. Physician: PARISA BHAGAT Quality: Adequate Procedures: Transthoracic echocardiogram with complete 2D, M-Mode, and doppler examination. Indications: STATUS POST TIA W/ HX RIGHT MCA CVA. 2D/M Mode Doppler Measurement Value Normal Ranges Measurement Value Normal Ranges LVIDd 2D 4.3 3.5 - 5.6 cm AV Peak Sadiq 1.0 m/sec LVIDs 2D 2.8 2.1 - 4.1 cm AV Peak PG 4.0 mmHg LVPWd 2D 1.1 0.6 - 1.1 cm LVOT Peak Sadiq 1.0 m/sec IVSd 2D 1.0 0.6 - 1.1 cm LVOT Peak PG 3.7 mmHg AoR Diam 2D 2.4 2.0 - 3.7 cm MV E Peak Sadiq 0.8 m/sec EDV 2D 84.7 cm3 MV A Peak Sadiq 0.8 m/sec ESV 2D 22.5 cm3 MV E/A 1.0 MV Decel Time 172 msec MV Decel [place] 5 MV E/A 1.0 TR Peak Sadiq 2.8 m/sec TR Peak PG 30.4 mmHg Findings Left Ventricle: Normal left ventricular systolic function. Normal left ventricular cavity size. Left ventricular wall thickness upper limits of normal. Ejection fraction is visually estimated at 65 %. Abnormal Diastolic Function. Right Ventricle: Normal right ventricular size. Normal right ventricular systolic function. Pacemaker right heart. Left Atrium: The left atrium is normal in size. Right Atrium: Right atrium at upper limits of normal. RA Pressure=3. Mitral Valve: Mild mitral leaflet calcification. Mild mitral annular calcification. Trace mitral regurgitation. Aortic Valve: Normal appearance of the aortic valve. No significant aortic stenosis or insufficiency. Tricuspid Valve: Normal appearance of the tricuspid valve. Estimated peak PA systolic pressure 33 mmHg. There is mild to moderate tricuspid regurgitation. Pulmonic Valve: There is trace pulmonic regurgitation. Pericardium: Normal pericardium with no significant pericardial effusion. Aorta: Normal aortic root. IVC: Normal size and normal respiratory collapse consistent with normal right atrial pressure. Conclusions 1.Normal left ventricular systolic function. Normal left ventricular cavity size. Left ventricular wall thickness upper limits of normal. Ejection fraction is visually estimated at 65 %. Abnormal Diastolic Function. 2.Normal right ventricular size. Normal right ventricular systolic function. Pacemaker right heart. 3.The left atrium is normal in size. 4.Right atrium at upper limits of normal. RA Pressure=3. 5.Normal appearance of the tricuspid valve. Estimated peak PA systolic pressure 33 mmHg. There is mild to moderate tricuspid regurgitation. 6.No significant valvular stenosis or regurgitation seen of remaining visualized valves. 7.Normal pericardium with no significant pericardial effusion. Electronically Signed By: Luis Peters 21-Nov-2016 16:36:53 -0700 Patient Name: CRISTINA RICHARD Study Date: 20-Nov-2016 [id number]
[2016-11-21] MEDS: LORAZEPAM 0.5 MG TAB PO PRN (19:33)
[2016-11-21] MEDS: traZODone 100 MG TAB PO SCH (22:05)
[2016-11-21] MEDS ORDERED: morphine 4 MG/ML VIAL IV STA (23:50)
[2016-11-22] VITALS (11 sets, daily range): BP systolic 96–115; BP diastolic 48–59; PULSE 60; RESP 16–20
[2016-11-22] MEDS: HYDROCODONE/APAP (5/325) TAB PO PRN ×3 (05:35→18:38)
[2016-11-22] MEDS: CLOPIDOGREL 75 MG TAB PO SCH (08:21)
[2016-11-22] MEDS: SERTRALINE 50 MG TAB PO SCH (08:21)
[2016-11-22] MEDS: FAMOTIDINE 20 MG TAB PO SCH ×2 (08:21→21:34)
--- NOTE | 2016-11-22 15:29 | PDOCDIS ---
Discharge Instructions CONDITION Patient Condition: Good HOME CARE INSTRUCTIONS: Special Diet: cardiac ACTIVITY: Activity Restrictions: Slowly Increase Activity Rest between Activity Special Exercises FOLLOW UP/APPOINTMENTS Appointments Follow up with Neurology as out-pt ROSEMARIE ANG MD Nov 22, 2016 15:29
[2016-11-22] MEDS ORDERED: ASPI-664 PO (15:34)
[2016-11-22] MEDS: LORAZEPAM 0.5 MG TAB PO PRN (21:34)
[2016-11-22] MEDS: traZODone 100 MG TAB PO SCH (21:34)
[2016-11-23] VITALS: BP 116/58; RESP 20
--- NOTE | 2016-11-23 03:39 | DS ---
DATE OF ADMISSION: 11/20/2016 DATE OF DISCHARGE: 11/22/2016 CONSULTANTS: None. PHYSICIAN: MARIA M LAFLEUR MD ATTENDING: PARISA BHAGAT MD PROCEDURE: 1. A 2D echocardiogram which demonstrated normal left ventricle systolic function. Normal left michelle tricle cavity size. Left ventricular wall thickness upper limits of normal. Ejection fraction visu ally estimated at 65%. Abnormal diastolic dysfunction. Normal right ventricle size. Normal right ventricular systolic function. Pacemaker, right heart. The left atrium is normal in size. The rig ht atrium is upper limit of normal. RA pressure 3. Estimated peak PA systolic pressure 33 mmHg. N o significant valvular stenosis or regurgitation seen of remaining visualized valves. Normal perica rdium with no significant pericardial effusion. Patient did not qualify for MRI of the brain second brittany to the pacemaker. 2. CT of the brain: Mild to moderate diffuse atrophy. Microangiopathic ischemic changes. Old ri ght middle cerebral artery branch distribution infarct. Small focal left parietal watershed infarct . Vascular calcification. DISCHARGE DIAGNOSES: 1. Left parietal watershed infarct. 2. Chronic right middle cerebral artery branch distribution infarct. 3. Essential hypertension. 4. Dyslipidemia. 5. Major depression. 6. Debility. MEDICATIONS: 1. Aspirin. 2. Lipitor. 3. Plavix. 4. Loperamide. 5. Multivitamin. 6. Zyprexa. 7. Senna. 8. Sertraline. 9. Iron supplementation. ALLERGIES: PENICILLIN: LABORATORIES: WBC 6.3, hemoglobin 11.7, hematocrit 36.4, platelets 98,000, MCV 96.6. Sodium 139, p otassium 4.1, chloride 106, bicarbonate 24, BUN 11, creatinine 0.68, glucose 136. Hemoglobin A1c 5. 3. Troponin negative. Triglyceride 138, total cholesterol 101, LDL 34, HDL 39. UDS positive for o piates and benzodiazepine, negative for ernie, amphetamine, cocaine and cannabinoids. Hepatitis pane l, hepatitis B surface antigen negative, hepatitis C antibody negative. Urinalysis: Trace leukocyt e esterase, otherwise negative. HOSPITAL COURSE: This is a 66-year-old female with past medical history of hypertension, dyslipidem ia, history of CVA, chronic constipation, anemia who presents to [facility] second br[place]any to having numbness and tingling in lateral left lower leg x24 hours. The patient also has been complaining of having generalized weakness, also has been having headache off and on x1 week. The h eadache has been gradually worsening and she decided she would present to [facility] for morphine for her headache. She headache, shortness of breath or any other discom fort. Upon arrival to emergency room, the patient's CT of the brain was obtained which demonstrated mild to moderate diffuse atrophy, microangiographic ischemic changes, old right middle cerebral art leora branch distribution infarct, small focal left parietal watershed infarct, vascular calcification . Carotid Doppler was obtained which demonstrates a small amount of plaque present within the visua lized portion of the bulb internal carotid artery. However, there is no evidence flow acceleration to suggest hemodynamically significant stenosis. The patient was admitted to med/surg. A 2D echoca rdiogram was obtained. There was no evidence of valvular deformity or disease. Ejection fraction w as normal. Patient and has been seen and evaluated by physical therapy, has been able to ambulate w ithout any risk of fall, although she continues to have some generalized weakness. There is no foca l weakness in the physical examination. At this time, the patient is medically stable to be dischar ged to nursing home facility since patient does live alone. She does have roommates, although e cannot depend on them at this time. Therefore, I have suggested the patient to be transferred to nursing home facility for 1 week of physical therapy and then she may be returned back to her res idence. CONDITION AT TIME OF DISCHARGE: Stable. Dictated By: ROSEMARIE ANG MD PN/NTS Conf#: [id number] DID#: [id number] CC: PARISA BHAGAT MD; [facility]; MARIA M LAFLEUR MD;*[facility]*
[2016-11-23 04:02] VITALS: BP 104/50; RESP 18
[2016-11-23 08:02] VITALS: BP 119/58; RESP 18
[2016-11-23] MEDS: CLOPIDOGREL 75 MG TAB PO SCH (08:37)
[2016-11-23] MEDS: SERTRALINE 50 MG TAB PO SCH (08:37)
[2016-11-23] MEDS: FAMOTIDINE 20 MG TAB PO SCH (08:37)
[2016-11-23 11:42] VITALS: BP 136/61; RESP 18
[2016-11-23] MEDS: HYDROCODONE/APAP (5/325) TAB PO PRN (13:20)
--- NOTE | 2016-11-23 15:43 | PN ---
Date/Time of Note Date/Time of Note DATE: 11/23/16 TIME: 15:40 Assessment/Plan VTE Prophylaxis VTE Prophylaxis Intervention: SCD's Lines/Catheters IV C[facility]ter Type (from [facility] [place] Urinary Cath still in place: No Assessment/Plan Chief Complaint/Hosp Course Assessment and plan 1. Left parietal watershed infarct. Continue Plavix, statin and monitor blood pressure 2. Chronic right middle cerebral artery branch distribution infarct. As above 3. Essential hypertension. Well controlled on medical management 4. Dyslipidemia. Continue statin 5. Major depression. 6. Debility. Patient will be transferred to a senior care facility for continuation of physical therapy Problems: Subjective 24 Hr Interval Summary Free Text/Dictation Patient denies any chest pain shortness of breath Tolerating oral intake Exam/Review of Systems Vital Signs Vitals Vital Signs Date Time Temp Pulse Resp B/P Pulse Ox O2 Delivery O2 Flow Rate FiO2 11/23/16 11:42 97.9 72 18 136/61 94 11/20/16 07:20 Room Air 11/20/16 01:02 3 Intake and Output 11/22/16 11/22/16 11/23/16 15:00 23:00 07:00 Intake Total 400 ml Output Total 950 ml Balance -550 ml Exam General: The patient is well-developed, Not in acute distress. HEENT: Atraumatic, normocephalic. The pupils are equal and round . Neck: Supple with full range of motion. Chest: Normal expansion of the thorax during inspiration Lungs: Clear to auscultation bilaterally Heart: Normal S1-S2, Regular rhythm and rate. Abdomen: Soft , nontender, nondistended , bowel sounds are present. Extremities: Normal to inspection, no edema no cyanosis Neurologic: Normal mental status,The patient is awake, alert and oriented . Results Result Diagram: 11/21/16 1000 11/21/16 1000 Medications Medications Current Medications Lorazepam (Ativan) 0.5 mg Q8H PRN PO ANXIETY Last administered on 11/22/16t 21: 34; Admin Dose 0.5 MG; Start 11/20/16 at 07:00 Nitroglycerin (Nitroglycerin (Sl Tab) 0.4 Mg) 1 tab Q5M PRN SL CHEST PAIN; Start 11/20/16 at 07:00 Acetaminophen (Tylenol Tab) 650 mg Q6H PRN PO PAIN LEVEL 1-3 OR FEVER Last administered on 11/21/16 19:33; Admin Dose 650 MG; Start 11/20/16 at 07:00 Acetaminophen/ Hydrocodone Bitart ([place] (5/325)) 1 tab Q6H PRN PO PAIN LEVEL 4 -6; Start 11/20/16 at 07:00 Acetaminophen/ Hydrocodone Bitart ([place] (5/325)) 2 tab Q6H PRN PO PAIN LEVEL 7 -10 Last administered on 11/23/16 13:20; Admin Dose 2 TAB; Start 11/20/16 at 07 :00 Famotidine (Pepcid) 20 mg Q12 PO Last administered on 11/23/16 08:37; Admin Dose 20 MG; Start 11/20/16 at 09:00 Clopidogrel Bisulfate (plaVIX) 75 mg DAILY PO Last administered on 11/23/16 08 :37; Admin Dose 75 MG; Start 11/20/16 at 10:00 Trazodone HCl (Desyrel) 100 mg HS PO Last administered on 11/22/16 21:34; Admin Dose 100 MG; Start 11/20/16 at 21:00 Sertraline HCl (Zoloft) 50 mg DAILY PO Last administered on 11/23/16 08:37; Admin Dose 50 MG; Start 11/20/16 at 11:00 ROSEMARIE ANG MD Nov 23, 2016 15:43
[2016-11-23 16:10] VITALS: BP 100/46; RESP 18
== END 2016-11-23 18:54 | DRG 65 ==
LOC: E/R 00:28 → MS4 05:13
PROVIDERS: ADMIT Family Medicine; ATTEND Family Medicine
DX: I63.9 Cerebral infarction, unspecified (principal); G81.94 Hemiplegia, unspecified affecting left nondominant side; I10 Essential (primary) hypertension; F34.1 Dysthymic disorder; F41.8 Other specified anxiety disorders; K59.04 Chronic idiopathic constipation; D64.9 Anemia, unspecified; E78.5 Hyperlipidemia, unspecified; Z79.02 Long term (current) use of antithrombotics/antiplatelets; Z79.82 Long term (current) use of aspirin; Z95.0 Presence of cardiac pacemaker; Z90.710 Acquired absence of both cervix and uterus; Z90.49 Acquired absence of other specified parts of digestive tract
CPT/HCPCS: 70450; 71010; 80048; 80061; 80307; 81001; 81003; 82962; 83036; 84484; 85025; 85610; 85730; 86803; 87340; 92610; 93005; 93306; 93880; 97162; 97167; J2270; J7030

== ENCOUNTER 2016-12-05 19:14 | Inpatient (IN) | payer OTHER ==
[~2016-12-05] VITALS: Ht 162.6 cm; Wt 66.8 kg
[~2016-12-05 19:14] MED LIST: ASPI-664 PO; ATOR40TA68 PO; CLOP75TA4 PO; IMO2 PO; IRON; MV C PO; OLAN5TAB5 PO; SENN-53 PO; SERT50TA6 PO
[2016-12-05] MEDS ORDERED: SOD CHLORIDE 0.9% 1,000 ML IV STA (20:08)
--- NOTE | 2016-12-05 20:31 | RADRPT ---
PROCEDURE: CT Brain without contrast. CLINICAL INDICATION: Neurologic deficit, code stroke. TECHNIQUE: A CT of the brain was performed utilizing axial sections from the skull base through th e vertex without contrast. Multiplanar re-formations were generated. Images were reviewed on a high- resolution PACS workstation. CTDIvol: 44.73 mGy. DLP: 720.23 mGy-cm. One or more of the following dose reduction techniques were used: - Automated exposure control. - Adjustment of the mA and/or kV according to patient size. - Use of iterative reconstruction technique. COMPARISON: 11/20/2016 FINDINGS: There is mild to moderate generalized volume loss. No hydrocephalus is seen. There is no mass effec t. No acute intracranial hemorrhage is identified. There is no extra-axial collection. No CT eviden ce of acute infarction is identified. A [id number]-ufznn chronic right MCA territory infarction is unchanged. A small chronic left parietal lobe infarction is also unchanged. There is patchy low atte nuation in the supratentorial white matter, a nonspecific finding which most likely represents the s equela of mild chronic microvascular ischemic disease. There are mild atherosclerotic arterial calc ifications. There is no significant mucosal disease in the paranasal sinuses. The visualized mastoid air cells a re clear. The ossesous structures are unremarkable. The extracranial soft tissues are unremarkable. IMPRESSION: 1. No acute intracranial pathology. 2. Nbsohanq-ce-kpbur chronic right MCA territory infarction, unchanged. A small chronic left parie [place] lobe infarction is also unchanged. 3. Mild to moderate generalized volume loss. 4. Mild chronic microvascular ischemic changes. 5. Atherosclerotic arterial calcifications. Critical Results were called to Dr. Marshall at 08:28 p.m. on 12/05/2016. RPTAT: HTAR .Carl Longo MD, MD Date Time Electronically viewed and signed by .Carl Longo MD, on 12/05/2016 20:30 .R/
[2016-12-05 20:54] LABS: ADD SCAN DIFF NO
[2016-12-05 20:55] LABS: BASOPHILS % 0.6 % (0.0-2.0); EOSINOPHILS # 0.3 10^3/ul (0.0-0.5); EOSINOPHILS % 4.8 % (0.0-7.0); HEMATOCRIT 33.9 % (37.0-47.0); HEMOGLOBIN 11.2 g/dl (12.0-16.0); LYMPHOCYTES # 1.5 10^3/ul (0.8-2.9); LYMPHOCYTES % 27.9 % (15.0-51.0); MEAN CORPUSCULAR VOLUME 96.9 fl (82.0-101.0); MEAN PLATELET VOLUME 10.4 fl (7.4-10.4); MONOCYTE # 0.4 10^3/ul (0.3-0.9); MONOCYTES % 8.5 % (0.0-11.0); NEUTROPHILS % 57.8 % (39.0-77.0); PLATELET COUNT 180 10^3/UL (140-415); RED CELL DISTRIBUTION WIDTH 13.5 % (11.5-14.5); WHITE BLOOD COUNT 5.2 10^3/ul (4.8-10.8)
[2016-12-05] MEDS ORDERED: ALTEPLASE 50 MG IV* ONE (21:00)
[2016-12-05] MEDS ORDERED: ALTEPLASE 100 MG INJ IV* ONE (21:00)
[2016-12-05] MEDS ORDERED: ALTEPLASE (tPA) 1 MG/ML BOLUS SYG IV* ONE (21:00)
[2016-12-05] MEDS ORDERED: HYDROmorphONE 1 MG/ML SYG IV STA ×2 (21:09→22:24)
[2016-12-05] MEDS ORDERED: ONDANSETRON 4 MG INJ IV STA (21:09)
[2016-12-05 21:12] LABS: INR 0.97; PARTIAL THROMBOPLASTIN TIME 29.7 Sec (25.0-35.0); PROTIME 12.9 Sec (12.2-14.2)
--- NOTE | 2016-12-05 21:14 | RADRPT ---
PROCEDURE: XR Chest. CLINICAL INDICATION: Shortness of breath. TECHNIQUE: Single frontal view. COMPARISON: 11/20/2016. FINDINGS: The lungs are clear. The heart is mildly enlarged. There is calcification in the aorta consistent with atherosclerosis. There is a dual lead right-sided permanent pacemaker. There is no pleural effusion. There is no pneumothorax. IMPRESSION: 1. Mild cardiomegaly and atherosclerosis. 2. Permanent pacemaker. 3. Clear lungs. RPTAT: QQ .Salty Lawson MD, Date Time Electronically viewed and signed by .Salty Lawson MD, on 12/05/2016 21:13 .R/
[2016-12-05 21:16] LABS: ANION GAP 10 (8-16); BLOOD UREA NITROGEN 10 mg/dl (7-20); CALCIUM 8.7 mg/dl (8.4-10.2); CARBON DIOXIDE 25 mmol/L (21-31); CHLORIDE 109 mmol/L (97-110); CREATININE 0.54 mg/dl (0.44-1.00); GLUCOSE 116 mg/dl (70-220); POTASSIUM 3.9 mmol/L (3.5-5.1); SODIUM 140 mmol/L (135-144)
[2016-12-05 21:28] LABS: TROPONIN-I < 0.012 ng/ml (0.00-0.12)
[2016-12-05] MEDS ORDERED: SOD CHLORIDE 0.9% 100 ML ONE (21:29)
[2016-12-05] MEDS ORDERED: IOHEXOL 100 ML ONE (21:29)
[2016-12-05] MEDS ORDERED: ALTEPLASE (tPA) 1 MG/ML BOLUS SYG IV* SCH (22:00)
[2016-12-05] MEDS ORDERED: ALTEPLASE IV SCH (22:00)
[2016-12-05] MEDS ORDERED: [UNRECOGNIZED DRUG - OTHER] IV SCH (22:00)
--- NOTE | 2016-12-05 23:10 | RADRPT ---
PROCEDURE: CTA head and neck. CLINICAL INDICATION: Focal neurologic deficit. TECHNIQUE: Direct spiral 0.63 mm axial sections were obtained through the cervical and intracrania l vasculature with the use of 100 cc of Omnipaque 350 nonionic intravenous contrast material. Axial MIP, coronal, and sagittal reformats were obtained. The images were reviewed on a PACS workstation. CTDIvol: 45.37, 15.96 mGy. DLP: 675.31 mGy-cm. COMPARISON: Brain CT performed earlier on the same date. FINDINGS: CTA neck: The right brachiocephalic and left common carotid arteries share a common origin of the ao rtic arch, a normal anatomic variant. Mild to moderate calcified atherosclerotic plaque along the pr oximal left ICA causes less than 50% stenosis of the vessel (minimum diameter 3.6 mm, reference diam eter 4.3 mm). There is minimal calcified atherosclerotic plaque at the right carotid bulb without st enosis. The bilateral vertebral arteries are widely patent. No dissection or aneurysm is identifie d. CTA head: There is minimal calcified atherosclerotic plaque along the bilateral cavernous and suprac linoid ICAs, without stenosis. The bilateral ACAs, MCAs, and director business intelligence are widely patent. There is a feta l origin of the left UPFITTER, a normal anatomic variant. The vertebrobasilar system is patent. The visu alized cerebellar arteries are unremarkable. No intracranial aneurysm or vascular malformation is s een. IMPRESSION: 1. No significant stenosis or occlusion along the major cervical and intracranial arteries. 2. No dissection, aneurysm, or vascular malformation. Measurements of cervical internal carotid artery stenosis were performed according to NASCET criteri a, with reference to distal ICA diameter. Critical Results were called to Dr. Marshall at 11:06 p.m. on 12/05/2016. RPTAT: HTAR .Carl Longo MD, MD Date Time Electronically viewed and signed by .Carl Longo MD, on 12/05/2016 23:09 .R/
[2016-12-05] MEDS ORDERED: LORAZEPAM 2 MG INJ IV ONE (23:30)
--- NOTE | 2016-12-05 23:35 | ERA ---
ER Documentation Chief Complaint Date/Time DATE: 12/05/16 TIME: 23:29 Chief Complaint BIBA from home c/o BYRNES, left side numbness,hx TIA HPI This 66-year-old female with a history of multiple strokes and TIAs in the past. She complains of 2 hours prior to arrival with onset of left-sided facial arm leg numbness and left leg heaviness. She also complains of headache at the vertex of her head as well. She has no speech change or visual change or loss of bowel or bladder no symptoms in the right. The patient states that she has had strokes in the past that caused a left-sided deficit but these deficits are new because the old ones have resolved. She said her leg was completely normal 2 hours prior. ROS All systems reviewed and are negative except as per history of present illness. Medications Home Meds Active Scripts Aspirin* (Aspirin* EC) 81 Mg Tablet., 81 MG PO DAILY, #30 TAB Prov:ROSEMARIE ANG MD 11/22/16 Reported Medications Mv,Ca,Min/Iron Fum/Fa/Lyco/Lut (COMPLETE MULTI TABLET) 1 Each Tablet, 1 EACH PO , TAB 11/20/16 [Iron] No Conflict Check IRON GLYCINATE 11/20/16 Sertraline Hcl* (Sertraline Hcl*) 50 Mg Tablet, 50 MG PO DAILY, #30 TAB 11/20/16 Sennosides* (Senna Lax*) 8.6 Mg Tablet, 1 TAB PO BID Y for CONSTIPATION, TAB 11/20/16 Clopidogrel Bisulfate* (Clopidogrel Bisulfate*) 75 Mg Tablet, 75 MG PO DAILY, # 30 TAB 11/20/16 Loperamide Hcl* (Loperamide Hcl*) 2 Mg Cap, 2 MG PO DAILY Y for DIARRHEA, CAP 11/20/16 Olanzapine* (Zyprexa*) 5 Mg Tablet, 5 MG PO QHS, #30 TAB 11/20/16 Atorvastatin* (Atorvastatin*) 40 Mg Tablet, 40 MG PO QHS, #30 TAB 11/20/16 Allergies Allergies: Coded Allergies: Penicillins (Verified Allergy, Unknown, 11/20/16) PMhx/Soc History of Surgery: Yes (hysterectomy, 1974, STOMACH SURGERY) Anesthesia Reaction: No Hx Neurological Disorder: Yes (CVA) Hx Respiratory Disorders: No Hx Cardiac Disorders: Yes (HYPERCHOLESTEROL) Hx Psychiatric Problems: Yes (DEPRESSION) Hx Miscellaneous Medical Probl: Yes Hx Alcohol Use: No Hx Substance Use: No Hx Tobacco Use: No Smoking Status: Never smoker FmHx Family History: No coronary disease Physical Exam Vitals Vital Signs Date Time Temp Pulse Resp B/P Pulse Ox O2 Delivery O2 Flow Rate FiO2 12/05/16 23:05 68 16 92/45 96 12/05/16 22:50 73 16 88/42 97 12/05/16 22:35 60 16 100/52 98 12/05/16 22:20 74 16 104/66 99 12/05/16 22:05 70 16 92/56 99 12/05/16 21:31 63 16 93/47 99 Room Air 12/05/16 21:10 98.3 71 18 113/55 100 12/05/16 19:23 98.3 71 18 113/55 100 Physical Exam Const: Well-developed, well-nourished Head: Atraumatic, normocephalic Eyes: Normal Conjunctiva, PERRLA, EOMI, normal sclera, no nystagmus ENT: Normal External Ears, Nose and Mouth, moist mucus membranes. Neck: Full range of motion. No meningismus, no lymphadenopathy. Resp: Clear to auscultation bilaterally, no wheezing, rhonchi, rales Cardio: Regular rate and rhythm, no murmurs, S1 S2 present Abd: Soft, non tender x 4, non distended. Normal bowel sounds, no guarding or rebound, no pulsitile abdominal masses or bruits Skin: No petechiae or rashes, no ecchymosis , no maculopapular rash Back: No midline or flank tenderness Ext: No cyanosis, or edema, FROM x 4, normal inspection, neurovascularly intact x 4 Neur: Awake and alert, STR 5/5 x 3, left leg has a 3 out of 5 strength, sensation intact x 2, the left face arm and leg have subjective tingling, no focal findings, cerebellum intact Psych: Normal Mood and Affect Result Diagram: 12/05/16204912/05/162049 Results 24 hrs Laboratory Tests Test 12/05/16 20:50 White Blood Count 5.210^3/ul Red Blood Count 3.5010^6/ul Hemoglobin 11.2g/dl Hematocrit 33.9% Mean Corpuscular Volume 96.9fl Mean Corpuscular Hemoglobin 32.0pg Mean Corpuscular Hemoglobin Concent 33.0g/dl Red Cell Distribution Width 13.5% Platelet Count 53644^3/UL Mean Platelet Volume 10.4fl Neutrophils % 57.8% Lymphocytes % 27.9% Monocytes % 8.5% Eosinophils % 4.8% Basophils % 0.6% Nucleated Red Blood Cells % 0.0/100WBC Neutrophils # 3.010^3/ul Lymphocytes # 1.510^3/ul Monocytes # 0.410^3/ul Eosinophils # 0.310^3/ul Basophils # 0.010^3/ul Nucleated Red Blood Cells # 0.010^3/ul Prothrombin Time 12.9Sec Prothrombin Time Ratio 1.0 INR International Normalized Ratio 0.97 Activated Partial Thromboplast Time 29.7Sec Sodium Level 140mmol/L Potassium Level 3.9mmol/L Chloride Level 109mmol/L Carbon Dioxide Level 25mmol/L Anion Gap 10 Blood Urea Nitrogen 10mg/dl Creatinine 0.54mg/dl Glucose Level 116mg/dl Hemoglobin A1c 5.2% Calcium Level 8.7mg/dl Troponin I < 0.012ng/ml Current Medications Medications (Trade) Dose Ordered Sig/Neelam Route PRN Reason Start Time Stop Time Status Last Admin Dose Admin Sodium Chloride (NS) 1,000 ml @ 1,000 mls/hr Q1H STAT IV 12/05/16 20:08 12/05/16 21:07 DC 12/05/16 21:21 Alteplase, Recombinant (Activase) 5.9 mg BOLUS OVER 1 MIN ONCE IV* 12/05/16 21:00 12/05/16 21:02 DC Alteplase, Recombinant (Activase) 53 mg ISCHEMIC STROKE ONCE IV* 12/05/16 21:00 12/05/16 21:02 DC Alteplase, Recombinant (Activase) 53 mg ISCHEMIC STROKE ONCE IV* 12/05/16 21:00 12/05/16 21:02 DC Hydromorphone HCl (Dilaudid) 0.5 mg ONCE STAT IV 12/05/16 21:09 12/05/16 21:10 DC 12/05/16 21:20 Ondansetron HCl (Zofran Inj) 4 mg ONCE STAT IV 12/05/16 21:09 12/05/16 21:10 DC 12/05/16 21:19 IV Flush 10 ml 10 ml STK-MED ONCE .ROUTE 12/05/16 21:29 12/05/16 21:30 DC Sodium Chloride 100 ml @ ud STK-MED ONCE .ROUTE 12/05/16 21:29 12/05/16 21:30 DC Iohexol (Omnipaque) 100 ml @ ud STK-MED ONCE .ROUTE 12/05/16 21:29 12/05/16 21:30 DC Alteplase, Recombinant 6 mg 6 mg ONCE IV* 12/05/16 22:00 12/05/16 23:00 DC 12/05/16 22:04 Alteplase, Recombinant/ Sterile Water (Activase/Water Sterile For Irrigation) 54 ml @ 54 mls/hr ONCE IV 12/05/16 22:00 12/05/16 23:00 DC 12/05/16 22:05 Hydromorphone HCl (Dilaudid) 0.5 mg ONCE STAT IV 12/05/16 22:24 12/05/16 22:25 DC 12/05/16 22:30 Procedures/MDM EKG: Rate/Rhythm: Electronic pacer QRS, ST, QT: NORMAL DC, QRS, QT] Impression: [NORMAL EKG] PROCEDURE: CTA head and neck. CLINICAL INDICATION: Focal neurologic deficit. TECHNIQUE: Direct spiral 0.63 mm axial sections were obtained through the cervical and intracranial vasculature with the use of 100 cc of Omnipaque 350 nonionic intravenous contrast material. Axial MIP, coronal, and sagittal reformats were obtained. The images were reviewed on a PACS workstation. CTDIvol : 45.37, 15.96 mGy. DLP: 675.31 mGy-cm. COMPARISON: Brain CT performed earlier on the same date. FINDINGS: CTA neck: The right brachiocephalic and left common carotid arteries share a common origin of the aortic arch, a normal anatomic variant. Mild to moderate calcified atherosclerotic plaque along the proximal left ICA causes less than 50 % stenosis of the vessel (minimum diameter 3.6 mm, reference diameter 4.3 mm). There is minimal calcified atherosclerotic plaque at the right carotid bulb without stenosis. The bilateral vertebral arteries are widely patent. No dissection or aneurysm is identified. CTA head: There is minimal calcified atherosclerotic plaque along the bilateral cavernous and supraclinoid ICAs, without stenosis. The bilateral ACAs, MCAs, and computer training specialist are widely patent. There is a origin of the left UTILITY ASSEMBLER, a normal anatomic variant. The vertebrobasilar system is patent. The visualized cerebellar arteries are unremarkable. No intracranial aneurysm or vascular malformation is seen. IMPRESSION: 1. No significant stenosis or occlusion along the major cervical and intracranial arteries. 2. No dissection, aneurysm, or vascular malformation. Measurements of cervical internal carotid artery stenosis were performed according to NASCET criteria, with reference to distal ICA diameter. Critical Results were called to Dr. Cabrera at 11:06 p.m. on 12/05/2016. RPTAT: HTAR .Carl Longo MD, MD Date Time Electronically viewed and signed by .Carl Longo MD, MD on 12/05/2016 23:09 .R/ CC: MARIA DE JESUS CABRERA DO PROCEDURE: CT Brain without contrast. CLINICAL INDICATION: Neurologic deficit, code stroke. TECHNIQUE: A CT of the brain was performed utilizing axial sections from the skull base through the vertex without contrast. Multiplanar re-formations were generated. Images were reviewed on a high-resolution PACS workstation. CTDIvol: 44.73 mGy. DLP: 720.23 mGy-cm. One or more of the following dose reduction techniques were used: - Automated exposure control. - Adjustment of the mA and/or kV according to patient size. - Use of iterative reconstruction technique. COMPARISON: 11/20/2016 FINDINGS: There is mild to moderate generalized volume loss. No hydrocephalus is seen. There is no mass effect. No acute intracranial hemorrhage is identified. There is no extra-axial collection. No CT evidence of acute infarction is identified. A bcjrbwrk-[id number] chronic right MCA territory infarction is unchanged. A small chronic left parietal lobe infarction is also unchanged. There is patchy low attenuation in the supratentorial white matter, a nonspecific finding which most likely represents the sequela of mild chronic microvascular ischemic disease. There are mild atherosclerotic arterial calcifications. There is no significant mucosal disease in the paranasal sinuses. The visualized mastoid air cells are clear. The ossesous structures are unremarkable. The extracranial soft tissues are unremarkable. IMPRESSION: 1. No acute intracranial pathology. 2. Xgeoqbcg-mq-ldtuv chronic right MCA territory infarction, unchanged. A small chronic left parietal lobe infarction is also unchanged. 3. Mild to moderate generalized volume loss. 4. Mild chronic microvascular ischemic changes. 5. Atherosclerotic arterial calcifications. Critical Results were called to Dr. Cabrera at 08:28 p.m. on 12/05/2016. RPTAT: HTAR .Carl Longo MD, MD Date Time Electronically viewed and signed by .Carl Longo MD, on 12/05/2016 20:30 .R/ CC: MARIA DE JESUS CABRERA DO PROCEDURE: XR Chest. CLINICAL INDICATION: Shortness of breath. TECHNIQUE: Single frontal view. COMPARISON: 11/20/2016. FINDINGS: The lungs are clear. The heart is mildly enlarged. There is calcification in the aorta consistent with atherosclerosis. There is a dual lead right-sided permanent pacemaker. There is no pleural effusion. There is no pneumothorax. IMPRESSION: 1. Mild cardiomegaly and atherosclerosis. 2. Permanent pacemaker. 3. Clear lungs. RPTAT: QQ .Salty Lawson MD, Date Time Electronically viewed and signed by .Salty Lawson MD, on 12/05/2016 21:13 .R/ CC: MARIA DE JESUS CABRERA DO Spoke with telemetry neurology and we decided to give TPA. Patient received a bolus of TPA as well as drip. Should be monitored closely for worsening symptoms We will admit to the ICU CT angios brain and neck are normal. Patient keeps asking for pain medication for her headache Currently she received a bolus and drip and she has not changed clinically Neuro Critical Care: Critical Care Time: 45 minutes Treatments/Evaluations: Continuous neurologic and cardiovascular monitoring for deterioration of neurologic function and complications, while obtaining immediate neurologic imaging. Considerations made for TPA and invasive therapy with discussions with family. Departure Diagnosis: Primary Impression: CVA (cerebral vascular accident) Qualified Code: I63.9 - Cerebrovascular accident (CVA), unspecified mechanism Condition: Stable MARIA DE JESUS CABRERA DO December 05, 2016 23:34
[2016-12-05 23:59] LABS: ADD UMIC NO; URINE BILIRUBIN (Dip) NEGATIVE (NEGATIVE); URINE BLOOD (Dip) NEGATIVE (NEGATIVE); URINE COLOR LT. YELLOW (YELLOW); URINE GLUCOSE (Dip) NEGATIVE (NEGATIVE); URINE KETONES (Dip) NEGATIVE (NEGATIVE); URINE LEUKOCYTE ESTERASE (Dip) NEGATIVE (NEGATIVE); URINE NITRITE (Dip) NEGATIVE (NEGATIVE); URINE TOTAL PROTEIN (Dip) NEGATIVE (NEGATIVE); URINE UROBILINOGEN (Dip) 0.2 E.U./dL (0.1-1.0)
[2016-12-06] VITALS (31 sets, daily range): BP systolic 89–126; BP diastolic 39–80; PULSE 60–85; RESP 10–24; Ht 162.6 cm; Wt 66.8 kg
[2016-12-06 00:58] LABS: BARBITURATES Negative (NEGATIVE); BENZODIAZEPINES Positive (NEGATIVE); CANNABINOIDS Negative (NEGATIVE); COCAINE Negative (NEGATIVE); OPIATES Positive (NEGATIVE)
[2016-12-06] MEDS ORDERED: DEXTROSE 5% IV SCH (01:00)
[2016-12-06] MEDS ORDERED: LABETALOL IV SCH (01:00)
[2016-12-06] MEDS ORDERED: ACETAMINOPHEN 325 MG TAB PO PRN (01:00)
[2016-12-06] MEDS ORDERED: LIDOCAINE 1% (MPF) 5 ML VIAL SC ONE (01:30)
[2016-12-06] MEDS ORDERED: ONDANSETRON 4 MG INJ IV PRN (02:00)
--- NOTE | 2016-12-06 02:04 | STROKE ---
Date/Time of Note Date/Time of Note DATE: 12/06/16 TIME: Patient Information General Patient location: emergency Arrival Date Age 66 Gender female Weight 66.8 kg per patient report Vital Signs Vital Signs Vital Signs Date Time Temp Pulse Resp B/P Pulse Ox O2 Delivery O2 Flow Rate FiO2 12/06/16 01:05 60 18 95/48 98 12/05/16 23:30 Room Air 12/05/16 21:10 98.3 Patient History Current Medications Allergies: Coded Allergies: Penicillins (Verified Allergy, Unknown, 11/20/16) Labs Hematology Labs Hematology Test 12/05/16 20:50 White Blood Count 5.210^3/ul (4.8-10.8) Red Blood Count 3.5010^6/ul (4.20-5.40) Hemoglobin 11.2g/dl (12.0-16.0) Hematocrit 33.9% (37.0-47.0) Mean Corpuscular Volume 96.9fl (82.0-101.0) Mean Corpuscular Hemoglobin 32.0pg (29.0-33.0) Mean Corpuscular Hemoglobin Concent 33.0g/dl (32.0-37.0) Red Cell Distribution Width 13.5% (11.5-14.5) Platelet Count 70196^3/UL (140-415) Mean Platelet Volume 10.4fl (7.4-10.4) Neutrophils % 57.8% (39.0-77.0) Lymphocytes % 27.9% (15.0-51.0) Monocytes % 8.5% (0.0-11.0) Eosinophils % 4.8% (0.0-7.0) Basophils % 0.6% (0.0-2.0) Nucleated Red Blood Cells % 0.0/100WBC (0.0-0.0) Neutrophils # 3.010^3/ul (1.6-7.5) Lymphocytes # 1.510^3/ul (0.8-2.9) Monocytes # 0.410^3/ul (0.3-0.9) Eosinophils # 0.310^3/ul (0.0-0.5) Basophils # 0.010^3/ul (0.0-0.1) Nucleated Red Blood Cells # 0.010^3/ul (0.0-0.0) Chemistry Labs Chemistry Test 12/05/16 20:50 Sodium Level 140mmol/L (135-144) Potassium Level 3.9mmol/L (3.5-5.1) Chloride Level 109mmol/L (97-110) Carbon Dioxide Level 25mmol/L (21-31) Anion Gap 10 (8-16) Blood Urea Nitrogen 10mg/dl (7-20) Creatinine 0.54mg/dl (0.44-1.00) Glucose Level 116mg/dl (70-220) Hemoglobin A1c 5.2% (0-5.9) Calcium Level 8.7mg/dl (8.4-10.2) Troponin I < 0.012ng/ml (0.00-0.12) Coagulation Labs: Coagulation Test 12/05/16 20:50 Prothrombin Time 12.9Sec (12.2-14.2) Prothrombin Time Ratio 1.0 INR International Normalized Ratio 0.97 Activated Partial Thromboplast Time 29.7Sec (25.0-35.0) History & Physical Patient History Notes Pt Hx Reviewed History of Present Illness 66yo F presents with acute onset headache, left sided numbness, and left leg weakness. Patient was last seen normal at 6pm. Review of Systems Constitutional: no symptoms reported EENTM: no symptoms reported Respiratory: no symptoms reported Cardiovascular: no symptoms reported Gastrointestinal: no symptoms reported Genitourinary: no symptoms reported Musculoskeletal: no symptoms reported Skin: no symptoms reported Psychiatric/Neurological: no symptoms reported All Other Systems: Reviewed and Negative NIH Stroke Scale NIH Stroke Scale 1A - Level of Conciousness: 0 - Alert keenly [id number] LOC Questions: 0 - Answers both [id number] - LOC Commands: 0 - Performs both tasks2 - Best Gaze: 0 - Normal3 - Visual: 0 - No visual loss4 - Facial Palsy: 2 - Complete [id number] - Motor Arm - Left: 4 - No [id number] - Motor Arm - Right: 0 - No [id number] - Motor Leg - Left: 4 - No [id number] - Motor Leg - Right: 0 - No drift7 - Limb Ataxia: 0 - Absent8 - Sensory: 2 - Severe to total loss9 - Best Language: 0 - No aphasia or normalDysarthria: 0 - [id number] - Extinction and inattentio: 0 - No abnormalityTotal Score: 12 Date/Time Recorded DATE: 12/06/16 TIME: Submitted By Sourav Walker t-PA Imaging Review Imaging Reviewed: Yes Date/Time Imaging Reviewed DATE: 12/06/16 TIME: Imaging Findings No acute changes t-PA Administration Recommendation: Yes Weight 66.8 kg per patient report Recommedation submitted by Sourav Walker Recommendations Impression Diagnosis ischemic stroke Recommendation 66yo F presents with acute onset left sided numbness and weakness of the left leg. Neurological exam is notable for left face, arm, and leg numbness and left leg weakness. I believe the patient is having an acute ischemic stroke. I reviewed the risks and benefits of IV TPA with the patient and she is agreeable to my recommendation for IV TPA. I recommend post-TPA order sets be followed. I recommend MRI Brain without gadolinium, carotid ultrasound, and transthoracic echocardiogram. I recommend repeat CT Head in 24 hours. Post t-PA Order recommendation: Document q15 min vitals Document q15 min neuro checks Document q15 min bleeding checks Refer to t-PA Order Sets Diagnostic Labs: Lipid Proile Hgb A1C CMP CBC w/Diff Coags Diagnostic Workup: Document q15 min vitals Document q15 min neuro checks Document q15 min bleeding checks Refer to t-PA Order Sets Therapy: Physical Therapy Speech Therapy Occupational Therapy Misc. Recommendations: Bedside Swallow Evaluation Pnumatic Compression Devices Avoid Aquino Catheter Stroke Education Smoking Education SOURAV WALKER December 06, 2016 01:33
--- NOTE | 2016-12-06 05:56 | HP ---
Date/Time of Note Date/Time of Note DATE: 12/06/16 TIME: 05:35 Assessment/Plan VTE Prophylaxis VTE Prophylaxis Intervention: SCD's Lines/Catheters IV [facility]from [facility] Saline Lock Urinary Cath still in place: Yes Reason Cath still needed: other (indicate) (Clinical indication) Assessment/Plan Chief Complaint/Hosp Course This is a [age]-year-old female being admitted to the ICU floor for: #1 acute CVA: Patient arrived at the ER within the TPA window. Tele- neuro was performed. TPA was given. At this time patient continues to have the left lower extremity paralysis. NIH score of 12 according to tele-neuro note. Her left upper extremity strength is 4 out of 5. At the current time will admit to the ICU and start the post -TPA protocol. Will monitor blood pressure and treat if indicated with labetalol to maintain blood pressure below 180/105. Provide supplemental oxygen to maintain sats above 92%. Will do swallow eval. CT scan of the head within 24 hours. Patient had carotid Doppler and echocardiogram within the last month she had a previous CVA. Will defer further imaging study orders to neurology. Neurology consulted. PT/OT evaluation. Will hold current oral medications until clinically indicated. #2 Previous history of CVA: Will hold home dosage of clopidogrel and aspirin and statin for right now. #3 depression: Hold Zyprexa for now restart through the clinical course as indicated #4 iron deficiency: Hold oral iron supplementation for now restart as clinically indicated. #5 DVT and GI prophylaxis: SCDs, IV Protonix. Further recommendations as per the clinical course. Problems: HPI/ROS Admit Date/Time Admit Date/Time December 06, 2016 at 01:35 Hx of Present Illness This 66-year-old female with a history of multiple strokes and TIAs in the past. She complained that 2 hours prior to arrival with onset of left-sided facial arm leg numbness and left leg heaviness. She also complained of headache at the vertex of her head as well. She has no speech change or visual change or loss of bowel or bladder no symptoms in the right. The patient states that she has had strokes in the past that caused a left-sided deficit but these deficits are new because the old ones have resolved. She said her leg was completely normal 2 hours prior. Telemetry neuro was initiated in the ER patient was given TPA. At the current time patient is stable she still states that she has a headache. Patient continues to have no motor function of the left lower extremity. Allergies: Penicillin Medications: See ESCOBAR STEPHENS Const: As per HPI Eyes : No pain discharge or redness or change in visual acuity ENT: No pain, sore throat, congestion, congestion, dysphagia or discharge Respiratory: No shortness of breath, cough, sputum, wheezing, or pleuritic pain Cardiovascular: No chest pain, palpitation, PND, or edema GI : no change in appetite, abdominal pain, nausea, vomiting, diarrhea, constipation, or change in the color his stool Genitourinary: No dysuria, hematuria, flank pain , discharge or CVA tenderness Musculoskeletal: As per HPI Skin: No rash, bruising or hives Neuro: As per HPI Endocrine: No polyuria, polydipsia, temperature intolerance Psych: No hallucination, depression, anxiety or suicidal ideation PMH/Family/Social Past Medical History CVA 9, depression, iron deficiency Past Surgical History TOTAL HYSTERECTOMY; CHOLECYSTECTOMY Family History Significant Family History: heart disease (Mom) Social History Alcohol Use: none Smoking Status: Never smoker Drug Use: none Exam/Review of Systems Vital Signs Vitals Vital Signs Date Time Temp Pulse Resp B/P Pulse Ox O2 Delivery O2 Flow Rate FiO2 12/06/16 04:00 63 12/06/16 03:30 12 102/59 99 12/06/16 03:00 Room Air 12/06/16 02:00 98.2 Exam Exam General: This is a pleasant 66-year-old female no acute distress status post TPA The patient is alert oriented -3 HEENT: Atraumatic, normocephalic. Left facial droop(old), Neck: Supple with full range of motion. No rigidity or meningismus Chest: Nontender Lungs: Clear to auscultation bilaterally no crackles rales or wheezing Heart: Normal S1-S2, Regular rhythm and rate. No murmur Abdomen: Soft , nontender, nondistended , bowel sounds are present. No guarding no rebound tenderness , No masses or organomegaly. No costovertebral temporal angle mass Extremities: Normal to inspection, unable to move the left lower extremity. Neurologic: Normal mental status, speech normal, cranial nerves II through XII are intact, left lower extremity strength 0 out of 5. Left upper extremity strength 4-5. Right upper and lower extremity strength 5 out of 5 Additional Comments EKG: Rate/Rhythm: Electronic pacer QRS, ST, QT: NORMAL TN, QRS, QT] Impression: [NORMAL EKG] PROCEDURE: CTA head and neck. CLINICAL INDICATION: Focal neurologic deficit. TECHNIQUE: Direct spiral 0.63 mm axial sections were obtained through the cervical and intracranial vasculature with the use of 100 cc of Omnipaque 350 nonionic intravenous contrast material. Axial MIP, coronal, and sagittal reformats were obtained. The images were reviewed on a PACS workstation. CTDIvol : 45.37, 15.96 mGy. DLP: 675.31 mGy-cm. COMPARISON: Brain CT performed earlier on the same date. FINDINGS: CTA neck: The right brachiocephalic and left common carotid arteries share a common origin of the aortic arch, a normal anatomic variant. Mild to moderate calcified atherosclerotic plaque along the proximal left ICA causes less than 50 % stenosis of the vessel (minimum diameter 3.6 mm, reference diameter 4.3 mm). There is minimal calcified atherosclerotic plaque at the right carotid bulb without stenosis. The bilateral vertebral arteries are widely patent. No dissection or aneurysm is identified. CTA head: There is minimal calcified atherosclerotic plaque along the bilateral cavernous and supraclinoid ICAs, without stenosis. The bilateral ACAs, MCAs, and assembler metal building are widely patent. There is a origin of the left LABORATORY ENGINEER, a normal anatomic variant. The vertebrobasilar system is patent. The visualized cerebellar arteries are unremarkable. No intracranial aneurysm or vascular malformation is seen. IMPRESSION: 1. No significant stenosis or occlusion along the major cervical and intracranial arteries. 2. No dissection, aneurysm, or vascular malformation. Measurements of cervical internal carotid artery stenosis were performed according to NASCET criteria, with reference to distal ICA diameter. Critical Results were called to Dr. Cabrera at 11:06 p.m. on 12/05/2016. RPTAT: HTAR .Carl Longo MD, Date Time Electronically viewed and signed by .Carl Longo MD, MD on 12/05/2016 23:09 .R/ CC: MARIA DE JESUS CABRERA DO PROCEDURE: CT Brain without contrast. CLINICAL INDICATION: Neurologic deficit, code stroke. TECHNIQUE: A CT of the brain was performed utilizing axial sections from the skull base through the vertex without contrast. Multiplanar re-formations were generated. Images were reviewed on a high-resolution PACS workstation. CTDIvol: 44.73 mGy. DLP: 720.23 mGy-cm. One or more of the following dose reduction techniques were used: - Automated exposure control. - Adjustment of the mA and/or kV according to patient size. - Use of iterative reconstruction technique. COMPARISON: 11/20/2016 FINDINGS: There is mild to moderate generalized volume loss. No hydrocephalus is seen. There is no mass effect. No acute intracranial hemorrhage is identified. There is no extra-axial collection. No CT evidence of acute infarction is identified. A ywewhyqe-xw-jgtth chronic right MCA territory infarction is unchanged. A small chronic left parietal lobe infarction is also unchanged. There is patchy low attenuation in the supratentorial white matter, a nonspecific finding which most likely represents the sequela of mild chronic microvascular ischemic disease. There are mild atherosclerotic arterial calcifications. There is no significant mucosal disease in the paranasal sinuses. The visualized mastoid air cells are clear. The ossesous structures are unremarkable. The extracranial soft tissues are unremarkable. IMPRESSION: 1. No acute intracranial pathology. 2. Renamtto-cl-pdwot chronic right MCA territory infarction, unchanged. A small chronic left parietal lobe infarction is also unchanged. 3. Mild to moderate generalized volume loss. 4. Mild chronic microvascular ischemic changes. 5. Atherosclerotic arterial calcifications. Critical Results were called to Dr. Cabrera at 08:28 p.m. on 12/05/2016. RPTAT: HTAR .Carl Longo MD, MD Date Time Electronically viewed and signed by .Carl Longo MD, MD on 12/05/2016 20:30 .R/ CC: MARIA DE JESUS CABRERA DO PROCEDURE: XR Chest. CLINICAL INDICATION: Shortness of breath. TECHNIQUE: Single frontal view. COMPARISON: 11/20/2016. FINDINGS: The lungs are clear. The heart is mildly enlarged. There is calcification in the aorta consistent with atherosclerosis. There is a dual lead right-sided permanent pacemaker. There is no pleural effusion. There is no pneumothorax. IMPRESSION: 1. Mild cardiomegaly and atherosclerosis. 2. Permanent pacemaker. 3. Clear lungs. RPTAT: QQ .Salty Lawson MD, MD Date Time Electronically viewed and signed by .Salty Lawson MD, MD on 12/05/2016 21:13 .R/ CC: MARIA DE JESUS CABRERA DO Labs Result Diagram: 12/05/16204912/05/162049 Medications Medications Current Medications Acetaminophen (Tylenol Tab) 650 mg Q4H PRN PO Temp greater than 99.6F; Start at 01:00 Docusate Sodium (Colace) 100 mg BID PO ; Start 12/06/16 at 09:00 Ondansetron HCl (Zofran Inj) 4 mg Q6H PRN IV NAUSEA AND/OR VOMITING; Start 12/06 at 02:00 Pantoprazole (Protonix Iv) 40 mg DAILY@06 IV ; Start 12/06/16 at 06:00 RAMOS FRANK December 06, 2016 05:49
[2016-12-06] MEDS: PANTOPRAZOLE 40 MG INJ IV SCH (06:04)
[2016-12-06] MEDS: DOCUSATE SODIUM 100 MG CAP PO SCH ×2 (09:00→09:37)
[2016-12-06] MEDS: HYDROCODONE/APAP (5/325) TAB PO PRN ×3 (09:37→19:58)
--- NOTE | 2016-12-06 15:15 | CONS ---
Date/Time of Note Date/Time of Note DATE: 12/06/16 TIME: 15:09 Assessment/Plan Assessment/Plan Chief Complaint/Hosp Course 66 year old female with history of Right MCA territory infarction, Left parietal infarction p/w acute onset left sided weakness s/p IV tPA. She was recently seen for stroke work up and started on Plavix 75 mg daily due to reported allergy to aspirin and moderate intensity statin, which has not been compliant with. CTA shows right carotid bulb calcified atherosclerotic plaque without significant stenosis, no intracranial occlusion. Possible etiologies for recurrent stroke are cardioembolism vs. atheroembolism Recommendations: CVA work up -maintain blood pressure <180/105 per tPA protocol q1 hour neuro checks for 24 hours per tPA protocol hold antiplatelets, anticoagulation up to 24 hours -Repeat Head CT 24 hours from IV tPA, unable to obtain MRI due to pacemaker -after 24 hours if no hemorrhage initiate Plavix 75 mg daily -LDL: 37 , HBA1C: 5.2% although her LDL is low she does have atherosclerotic disease in carotids and would benefit from moderate intensity statin, Lipitor 40 mg qhs is sufficient -urine toxicology screen -ECHO with a bubble study -continue telemetry monitoring for potential paroxysmal afib if pacemaker has not recently been interrogated would suggest interrogation to assess for afib as a potential mechanism for her recurrent cortical strokes -DVT ppx- SCD until repeat 24 hour scan then can initiate pharmacologic ppx if stable -PT/OT/Speech evaluations -continue ICU level care, will continue to follow for further recommendations Problems: Consultation Date/Type/Reason Admit Date/Time December 06, 2016 at 01:35 Date of Consultation: December 06, 2016 Type of Consultation: Neurology Reason for Consultation Right MCA stroke s/p IV tPA Referring Provider: RAMOS FRANK Hx of Present Illness 66 year old female with history of multiple prior strokes large Right MCA with encephalomalacia, prior left parietal infarct presenting with complaint of severe headaches with left face, arm and leg weakness 2 hours prior to admission. She was evaluated by tele neurologist on admission, CTH showed prior infarct no acute evolving infarct seen CTA no large vessel occlusion she was given IV tPA per recommendation. She continues to complain of headache receiving prn pain meds, is able to communicate with left facial weakness, mild left arm weakness and only able to move the left leg in the plane of the bed with decreased sensation. She has a pacemaker unable to obtain an MRI. She cannot recall the last time her pacemaker was interrogated. She was admitted a couple weeks ago for left lower extremity tingling receiving stroke work up, she reported allergy to Aspirin, and was started on Plavix 75 mg and Lipitor 40 mg qhs. headaches left leg weakness Past Medical History CVA multiple, TIA PPM placed Social History Alcohol Use: none Smoking Status: Never smoker Drug Use: none Exam/Review of Systems Vital Signs Vitals Vital Signs Date Time Temp Pulse Resp B/P Pulse Ox O2 Delivery O2 Flow Rate FiO2 12/06/16 12:00 60 12/06/16 10:43 16 101/71 99 Room Air 12/06/16 04:00 98.5 Intake and Output 12/05/16 12/05/16 12/06/16 15:00 23:00 07:00 Output Total 625 ml Balance -625 ml Exam awake and alert in mild distress due to headache oriented x3 no aphasia follows commands CN: PER, VFF EOMI, left facial asymmetry decreased hearing bilaterally palate upgoing uvula midline scm/trap intact 5/5 Motor: left arm 4/5 strength drift without hitting the bed after 10 seconds left leg can only move within plane of the bed 2/5 after noxious applied right arm and leg 5/5 Sensory: decreased to left and leg, less sensation to left leg Coordination difficult to perform due to weakness no ataxia Results Result Diagram: 12/05/16204912/05/162049 Results 24 hrs Laboratory Tests Test 12/05/16 20:50 12/05/16 23:15 12/06/16 02:28 12/06/16 09:35 White Blood Count 5.2 Red Blood Count 3.50 L Hemoglobin 11.2 L Hematocrit 33.9 L Mean Corpuscular Volume 96.9 Mean Corpuscular Hemoglobin 32.0 Mean Corpuscular Hemoglobin Concent 33.0 Red Cell Distribution Width 13.5 Platelet Count 180 # Mean Platelet Volume 10.4 Neutrophils % 57.8 Lymphocytes % 27.9 Monocytes % 8.5 Eosinophils % 4.8 Basophils % 0.6 Nucleated Red Blood Cells % 0.0 Neutrophils # 3.0 Lymphocytes # 1.5 Monocytes # 0.4 Eosinophils # 0.3 Basophils # 0.0 Nucleated Red Blood Cells # 0.0 Prothrombin Time 12.9 Prothrombin Time Ratio 1.0 INR International Normalized Ratio 0.97 Activated Partial Thromboplast Time 29.7 Sodium Level 140 Potassium Level 3.9 Chloride Level 109 Carbon Dioxide Level 25 Anion Gap 10 Blood Urea Nitrogen 10 Creatinine 0.54 Glucose Level 116 Hemoglobin A1c 5.2 5.3 Calcium Level 8.7 Troponin I < 0.012 < 0.012 < 0.012 Urine Color LT. YELLOW Urine Clarity CLEAR Urine pH 5.5 Urine Specific [place] >=1.030 H Urine Ketones NEGATIVE Urine Nitrite NEGATIVE Urine Bilirubin NEGATIVE Urine Urobilinogen 0.2 E.U./dL Urine Leukocyte Esterase NEGATIVE Urine Hemoglobin NEGATIVE Urine Glucose NEGATIVE Urine Total Protein NEGATIVE Urine Opiates Screen Positive Urine Barbiturates Negative Urine Amphetamines Screen Negative Urine Benzodiazepines Screen Positive Urine Cocaine Screen Negative Urine Cannabinoids Negative Triglycerides Level 61 Cholesterol Level 96 L LDL Cholesterol, Calculated 37 HDL Cholesterol 47 Cholesterol/HDL Ratio 2.0 Medications Medications Current Medications Acetaminophen (Tylenol Tab) 650 mg Q4H PRN PO Temp greater than 99.6F; Start at 01:00 Docusate Sodium (Colace) 100 mg BID PO ; Start 12/06/16 at 09:00 Ondansetron HCl (Zofran Inj) 4 mg Q6H PRN IV NAUSEA AND/OR VOMITING; Start 12/06 at 02:00 Pantoprazole (Protonix Iv) 40 mg DAILY@06 IV Last administered on 12/06/16 06: 04; Admin Dose 40 MG; Start 12/06/16 at 06:00 Acetaminophen/ Hydrocodone Bitart ([place] (5/325)) 1 tab Q4H PRN PO PAIN Last administered on 12/06/16 15:04; Admin Dose 1 TAB; Start 12/06/16 at 09:30 JESSICA LEE MD December 06, 2016 15:15
[2016-12-06] MEDS: ATORVASTATIN 40 MG TAB PO SCH (20:45)
[2016-12-06] MEDS: ZOLPIDEM 5 MG TAB PO PRN (22:34)
[2016-12-07] VITALS (19 sets, daily range): BP systolic 93–139; BP diastolic 23–72; PULSE 60–72; RESP 11–22
[2016-12-07] MEDS: HYDROCODONE/APAP (5/325) TAB PO PRN ×3 (04:51→20:16)
[2016-12-07] MEDS: PANTOPRAZOLE 40 MG INJ IV SCH (05:37)
--- NOTE | 2016-12-07 06:58 | RADRPT ---
PROCEDURE: CT Brain without contrast. CLINICAL INDICATION: Stroke. Status post t-PA treatment. TECHNIQUE: Axial images from the skull base through the vertex without IV contrast. Multiplanar r eformatted images were made. Images were reviewed on a PACS workstation. The CTDIvol is 43.77 mGy and the DLP is 720.23 mGycm. One or more of the following dose reduction techniques were used: auto mated exposure control, adjustment of the mA and/or kV according to patient size, or use of iterativ e reconstruction technique. COMPARISON: 12/05/2016 FINDINGS: Atrophy and chronic microvascular ischemic changes are again seen. Large old right MCA infarct is a gain seen and old left frontal and parietal infarcts are also again seen. No definite acute territo rial infarction or intracranial hemorrhage. No mass or midline shift is seen. No extraaxial fluid collection is seen. The visualized paranasal sinuses and mastoids are clear. IMPRESSION: No definite interval change. No visible acute to subacute infarct. No evidence for hemorrhage. RPTAT: HLBE Physician Sanjuana Date Time Electronically viewed and signed by Physician Sanjuana on 12/07/2016 06:58 ERIKA/
[2016-12-07] MEDS: DOCUSATE SODIUM 100 MG CAP PO SCH ×2 (09:42→20:15)
--- NOTE | 2016-12-07 11:22 | CONS ---
Date/Time of Note Date/Time of Note DATE: 12/07/16 TIME: :17 Consult Date/Type/Reason Admit Date/Time December 06, 2016 at 01:35 Initial Consult Date 12/06/16 Type of Consultation: Neurology Reason for Consultation left sided weakness possible Right MCA stroke Ordering Provider: RAMOS FRANK Subjective stable overnight, no arrhythmia on telemetry left leg greater than arm weakness Objective Vital Signs Date Time Temp Pulse Resp B/P Pulse Ox O2 Delivery O2 Flow Rate FiO2 12/07/16 10:00 60 18 112/53 97 Room Air Mechanical Ventilator 12/07/16 08:00 98.2 Intake and Output 12/06/16 12/06/16 12/07/16 15:00 23:00 07:00 Intake Total 100 ml 360 ml Output Total 1250 ml 1230 ml 740 ml Balance -1150 ml -870 ml -740 ml Exam awake and alert NAD oriented x3 no aphasia follows commands CN: PER, VFF EOMI, left facial asymmetry decreased hearing bilaterally palate upgoing uvula midline scm/trap intact 5/5 Motor: left arm 4/5 strength drift without hitting the bed after 10 seconds left leg can only move within plane of the bed 2/5 after noxious applied right arm and leg 5/5 Sensory: decreased to left and leg, less sensation to left leg Coordination difficult to perform due to weakness no ataxia Results/Medications Result Diagram: 12/05/16204912/05/162049 Medications Current Medications Acetaminophen (Tylenol Tab) 650 mg Q4H PRN PO Temp greater than 99.6F Last administered on 12/06/16 23:14; Admin Dose 650 MG; Start 12/06/16 at 01:00 Docusate Sodium (Colace) 100 mg BID PO Last administered on 12/07/16 09:42; Admin Dose 100 MG; Start 12/06/16 at 09:00 Ondansetron HCl (Zofran Inj) 4 mg Q6H PRN IV NAUSEA AND/OR VOMITING; Start 12/06 at 02:00 Pantoprazole (Protonix Iv) 40 mg DAILY@06 IV Last administered on 12/07/16 05: 37; Admin Dose 40 MG; Start 12/06/16 at 06:00 Acetaminophen/ Hydrocodone Bitart ([place] (5/325)) 1 tab Q4H PRN PO PAIN Last administered on 12/07/16 04:51; Admin Dose 1 TAB; Start 12/06/16 at 09:30 Atorvastatin Calcium (Lipitor) 40 mg HS PO Last administered on 12/06/16 20:45 ; Admin Dose 40 MG; Start 12/06/16 at 21:00 Clopidogrel Bisulfate (plaVIX) 75 mg DAILY PO ; Start 12/07/16 at 11:30 Assessment/Plan Chief Complaint/Hosp Course 66 year old female with history of Right MCA territory infarction, Left parietal infarction p/w acute onset left sided weakness s/p IV tPA. She was recently seen for stroke work up and started on Plavix 75 mg daily due to reported allergy to aspirin and moderate intensity statin, which has not been compliant with. CTA shows right carotid bulb calcified atherosclerotic plaque without significant stenosis, no intracranial occlusion. Possible etiologies for recurrent stroke are cardioembolism vs. atheroembolism Recommendations: CVA work up -terminal makeup operator goal blood pressure <140/90 maintain euglycemic, afebrile -repeat Head CT post tPA shows no obvious area of acute infarction, unable to obtain MRI due to PPM -start Plavix 75 mg daily (per prior records she has an allergy reported to aspirin) unclear if she has been compliant with her medications -LDL: 37 , HBA1C: 5.2% although her LDL is low she does have atherosclerotic disease in carotids and would benefit from moderate intensity statin, Lipitor 40 mg qhs is sufficient -ECHO with a bubble study -continue telemetry monitoring for potential paroxysmal afib if pacemaker has not recently been interrogated would suggest interrogation to assess for afib as a potential mechanism for her recurrent cortical strokes -DVT ppx- can start Lovenox -continue therapies evaluation for AR -downgrade to telemetry Problems: JESSICA LEE MD December 07, 2016 11:22
[2016-12-07] MEDS: CLOPIDOGREL 75 MG TAB PO SCH (11:34)
--- NOTE | 2016-12-07 17:13 | PN ---
Date/Time of Note Date/Time of Note DATE: 12/07/16 TIME: 17:06 Assessment/Plan VTE Prophylaxis VTE Prophylaxis Intervention: SCD's Lines/Catheters IV [facility]from [facility] Saline Lock Assessment/Plan Chief Complaint/Hosp Course #1 acute CVA status post TPA -Patient has persistent left-sided weakness, and a have had a right MCA infarct but repeat CT head is negative -Neurology consultation appreciated #2 Previous history of CVA -Continue statin and Plavix #3 Psychiatric disorder -Resume home meds #4 History of arrhythmia status post pacemaker placement in the past -Cardiology evaluation for pacer interrogation and evaluation for underlying A- fib #5 DVT and GI prophylaxis: SCDs, IV Protonix. Problems: Subjective 24 Hr Interval Summary Neurologic: headache Exam/Review of Systems Vital Signs Vitals Vital Signs Date Time Temp Pulse Resp B/P Pulse Ox O2 Delivery O2 Flow Rate FiO2 12/07/16 16:40 60 12/07/16 15:34 98.2 18 93/46 95 12/07/16 11:00 Room Air Intake and Output 12/06/16 12/06/16 12/07/16 15:00 23:00 07:00 Intake Total 100 ml 360 ml Output Total 1250 ml 1230 ml 740 ml Balance -1150 ml -870 ml -740 ml Exam Constitutional: alert, oriented Respiratory: clear to auscultation Cardiovascular: regular rate and rhythm Gastrointestinal: soft, No distended Musculoskeletal: nl extremities to inspection Results Result Diagram: 12/05/16204912/05/162049 Medications Medications Current Medications Acetaminophen (Tylenol Tab) 650 mg Q4H PRN PO Temp greater than 99.6F Last administered on 12/06/16 23:14; Admin Dose 650 MG; Start 12/06/16 at 01:00 Docusate Sodium (Colace) 100 mg BID PO Last administered on 12/07/16 09:42; Admin Dose 100 MG; Start 12/06/16 at 09:00 Ondansetron HCl (Zofran Inj) 4 mg Q6H PRN IV NAUSEA AND/OR VOMITING; Start 12/06 at 02:00 Pantoprazole (Protonix Iv) 40 mg DAILY@06 IV Last administered on 12/07/16 05: 37; Admin Dose 40 MG; Start 12/06/16 at 06:00 Acetaminophen/ Hydrocodone Bitart ([place] (5/325)) 1 tab Q4H PRN PO PAIN Last administered on 12/07/16 13:30; Admin Dose 1 TAB; Start 12/06/16 at 09:30 Atorvastatin Calcium (Lipitor) 40 mg HS PO Last administered on 12/06/16 20:45 ; Admin Dose 40 MG; Start 12/06/16 at 21:00 Clopidogrel Bisulfate (plaVIX) 75 mg DAILY PO Last administered on 12/07/16 11: 34; Admin Dose 75 MG; Start 12/07/16 at 11:30 BLAKE ACEVEDO December 07, 2016 17:13
[2016-12-07] MEDS: SERTRALINE 50 MG TAB PO SCH (18:05)
--- NOTE | 2016-12-07 19:34 | CONS ---
Date/Time of Note Date/Time of Note DATE: 12/07/16 TIME: 19:26 Assessment/Plan Assessment/Plan Chief Complaint/Hosp Course Assessment: Suspected acute stroke - status post TPA History of recurrent strokes History of deep vein thrombosis Dual-chamber permanent pacemaker ([employer]) Reported aspirin allergy Recommendations: -pacemaker interrogation to rule out occult atrial fibrillation -repeat echocardiogram with bubble study -continue clopidogrel 75mg and atorvastatin 40mg daily, as per neurology Problems: Consultation Date/Type/Reason Admit Date/Time December 06, 2016 at 01:35 Type of Consultation: Cardiology Reason for Consultation pacemaker interrogation Hx of Present Illness The patient is a 66 year-old female with a history of recurrent strokes who presents with left-sided weakness. She received TPA in the emergency department. Patient has a dual-chamber permanent pacemaker for unclear indication. She reports not having had the pacemaker interrogated in many years. 14 point review of systems negative other than per HPI. Past Medical History Dual-chamber permanent pacemaker ([employer]) History of recurrent strokes History of deep vein thrombosis Depression Past Surgical History Cholecystectomy Hysterectomy Family History Significant Family History: heart disease (mother) Social History Alcohol Use: none Smoking Status: Never smoker Drug Use: none Exam/Review of Systems Vital Signs Vitals Vital Signs Date Time Temp Pulse Resp B/P Pulse Ox O2 Delivery O2 Flow Rate FiO2 12/07/16 16:40 60 12/07/16 15:34 98.2 18 93/46 95 12/07/16 11:00 Room Air Intake and Output 12/06/16 12/06/16 12/07/16 14:59 22:59 06:59 Intake Total 100 ml 360 ml Output Total 1100 ml 1370 ml 800 ml Balance -1000 ml -1010 ml -800 ml Exam Constitutional: alert, well developed Psych: depression Head: atraumatic, normocephalic Eyes: nl conjunctiva, nl lids ENMT: nl external ears & nose, nl nasal mucosa & septum Neck: non-tender, supple, No jvd Respiratory: clear to auscultation, normal air movement Cardiovascular: regular rate and rhythm Gastrointestinal: non-tender, soft Musculoskeletal: nl extremities to inspection Extremities: No clubbing, No cyanosis, No edema Neurological: nl mental status Results Result Diagram: 12/05/16204912/05/162049 Medications Medications Current Medications Acetaminophen (Tylenol Tab) 650 mg Q4H PRN PO Temp greater than 99.6F Last administered on 12/06/16 23:14; Admin Dose 650 MG; Start 12/06/16 at 01:00 Docusate Sodium (Colace) 100 mg BID PO Last administered on 12/07/16 09:42; Admin Dose 100 MG; Start 12/06/16 at 09:00 Ondansetron HCl (Zofran Inj) 4 mg Q6H PRN IV NAUSEA AND/OR VOMITING; Start 12/06 at 02:00 Pantoprazole (Protonix Iv) 40 mg DAILY@06 IV Last administered on 12/07/16 05: 37; Admin Dose 40 MG; Start 12/06/16 at 06:00 Acetaminophen/ Hydrocodone Bitart ([place] (5/325)) 1 tab Q4H PRN PO PAIN Last administered on 12/07/16 13:30; Admin Dose 1 TAB; Start 12/06/16 at 09:30 Atorvastatin Calcium (Lipitor) 40 mg HS PO Last administered on 12/06/16 20:45 ; Admin Dose 40 MG; Start 12/06/16 at 21:00 Clopidogrel Bisulfate (plaVIX) 75 mg DAILY PO Last administered on 12/07/16 11: 34; Admin Dose 75 MG; Start 12/07/16 at 11:30 Olanzapine (Zyprexa) 5 mg QHS PO ; Start 12/07/16 at 21:00 Sertraline HCl (Zoloft) 50 mg DAILY PO Last administered on 12/07/16 18:05; Admin Dose 50 MG; Start 12/07/16 at 17:30 Miscellaneous Information Patients own medicat... BID@, XX ; Start 12/08/16 at 10:00; Status GERARD MANCINI MD December 07, 2016 19:34
[2016-12-07] MEDS: ATORVASTATIN 40 MG TAB PO SCH (20:16)
[2016-12-07] MEDS: OLANZAPINE 5 MG TAB PO SCH (20:16)
[2016-12-07] MEDS: ZOLPIDEM 5 MG TAB PO PRN (20:24)
[2016-12-07] MEDS ORDERED: SUMATRIPTAN 6 MG/0.5 ML INJ SC ONE (22:00)
[2016-12-07] MEDS ORDERED: SUMATRIPTAN 6 MG/0.5 ML INJ SC PRN (22:45)
[2016-12-08] VITALS (12 sets, daily range): BP systolic 97–118; BP diastolic 45–59; PULSE 60–61; RESP 16–20
[2016-12-08] MEDS: PANTOPRAZOLE 40 MG INJ IV SCH (06:29)
[2016-12-08] MEDS: DOCUSATE SODIUM 100 MG CAP PO SCH ×2 (08:16→20:45)
[2016-12-08] MEDS: SERTRALINE 50 MG TAB PO SCH (08:16)
[2016-12-08] MEDS: CLOPIDOGREL 75 MG TAB PO SCH (08:16)
[2016-12-08] MEDS: morphine 2 MG INJ IV PRN ×5 (10:36→22:55)
[2016-12-08 14:04] LABS: ADD SCAN DIFF NO
[2016-12-08 14:06] LABS: BASOPHILS % 0.5 % (0.0-2.0); EOSINOPHILS # 0.2 10^3/ul (0.0-0.5); EOSINOPHILS % 2.6 % (0.0-7.0); HEMOGLOBIN 11.5 g/dl (12.0-16.0); LYMPHOCYTES # 1.3 10^3/ul (0.8-2.9); LYMPHOCYTES % 21.1 % (15.0-51.0); MEAN CORPUSCULAR HEMOGLOBIN 32.3 pg (29.0-33.0); MEAN CORPUSCULAR HGB CONC 33.8 g/dl (32.0-37.0); MEAN CORPUSCULAR VOLUME 95.5 fl (82.0-101.0); MONOCYTE # 0.4 10^3/ul (0.3-0.9); MONOCYTES % 5.7 % (0.0-11.0); NEUTROPHIL # 4.3 10^3/ul (1.6-7.5); NEUTROPHILS % 69.9 % (39.0-77.0); PLATELET COUNT 177 10^3/UL (140-415); RED BLOOD COUNT 3.56 10^6/ul (4.20-5.40); RED CELL DISTRIBUTION WIDTH 13.1 % (11.5-14.5); WHITE BLOOD COUNT 6.2 10^3/ul (4.8-10.8)
[2016-12-08 14:23] LABS: POTASSIUM 4.1 mmol/L (3.5-5.1)
[2016-12-08 14:25] LABS: CREATININE 0.66 mg/dl (0.44-1.00)
[2016-12-08 14:26] LABS: CALCIUM 8.7 mg/dl (8.4-10.2); MAGNESIUM 1.4 mg/dl (1.7-2.5)
--- NOTE | 2016-12-08 16:05 | PN ---
Date/Time of Note Date/Time of Note DATE: 12/08/16 TIME: 16:03 Assessment/Plan VTE Prophylaxis VTE Prophylaxis Intervention: SCD's Lines/Catheters IV [facility] Peripheral IV Assessment/Plan Chief Complaint/Hosp Course #1 acute CVA status post TPA -Patient has persistent left-sided weakness, and a have had a right MCA infarct but repeat CT head is negative -Neurology consultation appreciated -PT eval #2 Previous history of CVA -Continue statin and Plavix #3 Psychiatric disorder -Continue home meds #4 History of arrhythmia status post pacemaker placement in the past -Cardiology consultation for pacer interrogation and evaluation for underlying A -fib appreciated #5 DVT and GI prophylaxis: SCDs, IV Protonix. Problems: Subjective 24 Hr Interval Summary Neurologic: headache Exam/Review of Systems Vital Signs Vitals Vital Signs Date Time Temp Pulse Resp B/P Pulse Ox O2 Delivery O2 Flow Rate FiO2 12/08/16 15:26 98.0 60 18 106/51 96 12/07/16 11:00 Room Air Intake and Output 12/07/16 12/07/16 12/08/16 15:00 23:00 07:00 Intake Total 380 ml 360 ml Output Total 620 ml 550 ml 500 ml Balance -620 ml -170 ml -140 ml Exam Constitutional: alert, oriented Respiratory: clear to auscultation Cardiovascular: regular rate and rhythm Gastrointestinal: soft, No distended Musculoskeletal: nl extremities to inspection Results Result Diagram: 12/08/16 1350 12/08/16 1350 Results 24 hrs Laboratory Tests Test 12/08/16 13:50 White Blood Count 6.2 Red Blood Count 3.56 L Hemoglobin 11.5 L Hematocrit 34.0 L Mean Corpuscular Volume 95.5 Mean Corpuscular Hemoglobin 32.3 Mean Corpuscular Hemoglobin Concent 33.8 Red Cell Distribution Width 13.1 Platelet Count 177 Mean Platelet Volume 10.0 Neutrophils % 69.9 Lymphocytes % 21.1 Monocytes % 5.7 Eosinophils % 2.6 Basophils % 0.5 Nucleated Red Blood Cells % 0.0 Neutrophils # 4.3 Lymphocytes # 1.3 Monocytes # 0.4 Eosinophils # 0.2 Basophils # 0.0 Nucleated Red Blood Cells # 0.0 Sodium Level 139 Potassium Level 4.1 Chloride Level 103 Carbon Dioxide Level 29 Anion Gap 11 Blood Urea Nitrogen 13 Creatinine 0.66 Glucose Level 86 Calcium Level 8.7 Magnesium Level 1.4 L Medications Medications Current Medications Acetaminophen (Tylenol Tab) 650 mg Q4H PRN PO Temp greater than 99.6F Last administered on 12/06/16 23:14; Admin Dose 650 MG; Start 12/06/16 at 01:00 Docusate Sodium (Colace) 100 mg BID PO Last administered on 12/08/16 08:16; Admin Dose 100 MG; Start 12/06/16 at 09:00 Ondansetron HCl (Zofran Inj) 4 mg Q6H PRN IV NAUSEA AND/OR VOMITING; Start 12/06 at 02:00 Pantoprazole (Protonix Iv) 40 mg DAILY@06 IV Last administered on 12/08/16 06: 29; Admin Dose 40 MG; Start 12/06/16 at 06:00 Acetaminophen/ Hydrocodone Bitart ([place] (5/325)) 1 tab Q4H PRN PO PAIN Last administered on 12/07/16 20:16; Admin Dose 1 TAB; Start 12/06/16 at 09:30 Atorvastatin Calcium (Lipitor) 40 mg HS PO Last administered on 12/07/16 20:16 ; Admin Dose 40 MG; Start 12/06/16 at 21:00 Clopidogrel Bisulfate (plaVIX) 75 mg DAILY PO Last administered on 12/08/16 08 :16; Admin Dose 75 MG; Start 12/07/16 at 11:30 Olanzapine (Zyprexa) 5 mg QHS PO Last administered on 12/07/16 20:16; Admin Dose 5 MG; Start 12/07/16 at 21:00 Sertraline HCl (Zoloft) 50 mg DAILY PO Last administered on 12/08/16 08:16; Admin Dose 50 MG; Start 12/07/16 at 17:30 Miscellaneous Information Patients own medicat... BID@ XX ; Start 12/08/16 at 10:00 Morphine Sulfate (morphine) 2 mg Q3H PRN IV PAIN LEVEL 4-7 Last administered on 12/08/16 13:47; Admin Dose 2 MG; Start 12/08/16 at 10:30 BLAKE ACEVEDO December 08, 2016 16:05
[2016-12-08] MEDS: MAGNESIUM SULFATE 4 GM/100 ML 100 ML IVPB ONE ×2 (18:34→18:49)
[2016-12-08] MEDS ORDERED: MAGNESIUM OXIDE 400 MG TAB PO ONE (19:30)
[2016-12-08] MEDS: ATORVASTATIN 40 MG TAB PO SCH (20:45)
[2016-12-08] MEDS: OLANZAPINE 5 MG TAB PO SCH (20:45)
[2016-12-08] MEDS: LORAZEPAM 1 MG TAB PO SCH (20:46)
--- NOTE | 2016-12-08 20:54 | RADRPT ---
Echocardiogram Report Patient Name: CRISTINA RICHARD Gender: Female Date: 1950 Study Date: 08-Dec-2016 Security Inspector: Chun Hernandez [facility] Location: [id number] Ref. Physician: GERARD NYE Quality: Technically Difficult Study Procedures: Transthoracic echocardiogram examination. Indications: Cerebrovascular Accident. Findings Left Ventricle: The left ventricular ejection fraction is visually estimated at 60 - 65 %. Right Ventricle: Pacemaker wire noted in the right heart. Atrial Septum: Agitated saline was injected intravenously for microbubble contrast study. No right to left shunt was identified with and with out valsalva maneuver. Pericardium: Trivial effusion. Conclusions 1.Negative bubble study without evidence of right to left shunt at rest or with Valsalva. Electronically Signed By: Gerard Nye 08-Dec-2016 20:54:24 -0700 Patient Name: CRISTINA RICHARD Study Date: 08-Dec-2016 [id number]
--- NOTE | 2016-12-08 21:27 | CONS ---
Date/Time of Note Date/Time of Note DATE: 12/08/16 TIME: 21:23 Assessment/Plan Assessment/Plan Chief Complaint/Hosp Course Assessment: Paroxysmal atrial fibrillation Dual-chamber permanent pacemaker ([employer], implanted [address] Decker) - interrogated 12/08/2016 with normal function, brief episodes of atrial fibrillation most recently 09/15/2016 with duration of 17 minutes Suspected acute stroke - status post TPA History of recurrent strokes History of deep vein thrombosis Reported aspirin allergy Recommendations: -echocardiogram with bubble study negative for right to left shunt at rest and with Valsalva -continue clopidogrel 75mg for now, would change to chronic anticoagulation due to atrial fibrillation once outside of acute stroke window -continue atorvastatin 40mg daily Problems: Consultation Date/Type/Reason Admit Date/Time December 06, 2016 at 01:35 Initial Consult Date 12/06/16 Type of Consultation: Cardiology 24 HR Interval Summary Free Text/Dictation Pacemaker interrogated today. Normal function. Brief episodes of atrial fibrillation, most recently 09/15/2016 with duration of 17 minutes. Echocardiogram with bubble study negative. Detailed Summary Additional Comments 14 point review of systems without changes. Exam/Review of Systems Vital Signs Vitals Vital Signs Date Time Temp Pulse Resp B/P Pulse Ox O2 Delivery O2 Flow Rate FiO2 12/08/16 20:15 61 12/08/16 19:50 97.8 16 97/45 92 12/07/16 11:00 Room Air Intake and Output 12/07/16 12/07/16 12/08/16 14:59 22:59 06:59 Intake Total 380 ml 360 ml Output Total 670 ml 550 ml 500 ml Balance -670 ml -170 ml -140 ml Exam Constitutional: alert, well developed Psych: depression Head: atraumatic, normocephalic Eyes: nl conjunctiva, nl lids ENMT: nl external ears & nose, nl nasal mucosa & septum Neck: non-tender, supple, No jvd Respiratory: clear to auscultation, normal air movement Cardiovascular: regular rate and rhythm Gastrointestinal: non-tender, soft Musculoskeletal: nl extremities to inspection Extremities: No clubbing, No cyanosis, No edema Neurological: nl mental status Results Result Diagram: 12/08/16 1350 12/08/16 1350 Results 24 hrs Laboratory Tests Test 12/08/16 13:50 White Blood Count 6.2 Red Blood Count 3.56 L Hemoglobin 11.5 L Hematocrit 34.0 L Mean Corpuscular Volume 95.5 Mean Corpuscular Hemoglobin 32.3 Mean Corpuscular Hemoglobin Concent 33.8 Red Cell Distribution Width 13.1 Platelet Count 177 Mean Platelet Volume 10.0 Neutrophils % 69.9 Lymphocytes % 21.1 Monocytes % 5.7 Eosinophils % 2.6 Basophils % 0.5 Nucleated Red Blood Cells % 0.0 Neutrophils # 4.3 Lymphocytes # 1.3 Monocytes # 0.4 Eosinophils # 0.2 Basophils # 0.0 Nucleated Red Blood Cells # 0.0 Sodium Level 139 Potassium Level 4.1 Chloride Level 103 Carbon Dioxide Level 29 Anion Gap 11 Blood Urea Nitrogen 13 Creatinine 0.66 Glucose Level 86 Calcium Level 8.7 Magnesium Level 1.4 L Medications Medications Current Medications Acetaminophen (Tylenol Tab) 650 mg Q4H PRN PO Temp greater than 99.6F Last administered on 12/06/16 23:14; Admin Dose 650 MG; Start 12/06/16 at 01:00 Docusate Sodium (Colace) 100 mg BID PO Last administered on 12/08/16 20:45; Admin Dose 100 MG; Start 12/06/16 at 09:00 Ondansetron HCl (Zofran Inj) 4 mg Q6H PRN IV NAUSEA AND/OR VOMITING; Start 12/06 at 02:00 Acetaminophen/ Hydrocodone Bitart ([place] (5/325)) 1 tab Q4H PRN PO PAIN Last administered on 12/07/16 20:16; Admin Dose 1 TAB; Start 12/06/16 at 09:30 Atorvastatin Calcium (Lipitor) 40 mg HS PO Last administered on 12/08/16 20:45 ; Admin Dose 40 MG; Start 12/06/16 at 21:00 Clopidogrel Bisulfate (plaVIX) 75 mg DAILY PO Last administered on 12/08/16 08 :16; Admin Dose 75 MG; Start 12/07/16 at 11:30 Olanzapine (Zyprexa) 5 mg QHS PO Last administered on 12/08/16 20:45; Admin Dose 5 MG; Start 12/07/16 at 21:00 Sertraline HCl (Zoloft) 50 mg DAILY PO Last administered on 12/08/16 08:16; Admin Dose 50 MG; Start 5/9/17 at 17:30 Miscellaneous Information Patients own medicat... BID@10,16 XX Last administered on 12/08/16 16:15; Admin Dose 1 EA; Start 12/08/16 at 10:00 Morphine Sulfate (morphine) 2 mg Q3H PRN IV PAIN LEVEL 4-7 Last administered on 12/08/16 19:51; Admin Dose 2 MG; Start 12/08/16 at 10:30 Pantoprazole (Protonix Tab) 40 mg DAILY@06 PO ; Start 12/09/16 at 06:00 Lorazepam (Ativan) 1 mg HS PO Last administered on 12/08/16 20:46; Admin Dose 1 MG; Start 12/08/16 at 21:00 GERARD PRATT MD December 08, 2016 21:27
[2016-12-08] MEDS: ZOLPIDEM 5 MG TAB PO PRN (22:10)
[2016-12-09] VITALS (12 sets, daily range): BP systolic 91–108; BP diastolic 44–54; PULSE 60–76; RESP 16–20
[2016-12-09] MEDS: morphine 2 MG INJ IV PRN ×6 (03:01→20:49)
[2016-12-09] MEDS: PANTOPRAZOLE (EC) 40 MG TAB PO SCH (06:28)
[2016-12-09 08:57] LABS: CALCIUM 8.4 mg/dl (8.4-10.2); CREATININE 0.65 mg/dl (0.44-1.00); MAGNESIUM 1.6 mg/dl (1.7-2.5); PHOSPHORUS 4.2 mg/dl (2.5-4.9); POTASSIUM 4.4 mmol/L (3.5-5.1)
[2016-12-09] MEDS: SERTRALINE 50 MG TAB PO SCH (09:02)
[2016-12-09] MEDS: DOCUSATE SODIUM 100 MG CAP PO SCH ×2 (09:02→20:48)
[2016-12-09] MEDS: CLOPIDOGREL 75 MG TAB PO SCH (09:02)
[2016-12-09] MEDS ORDERED: MAGNESIUM OXIDE 400 MG TAB PO ONE (10:30)
--- NOTE | 2016-12-09 13:59 | CONS ---
Date/Time of Note Date/Time of Note DATE: 12/09/16 TIME: 13:57 Assessment/Plan Assessment/Plan Chief Complaint/Hosp Course Assessment: Paroxysmal atrial fibrillation - currently sinus rhythm Dual-chamber permanent pacemaker ([employer], implanted [address] Decker) - interrogated 12/08/2016 with normal function, brief episodes of atrial fibrillation most recently 09/15/2016 with duration of 17 minutes Suspected acute stroke - status post TPA History of recurrent strokes History of deep vein thrombosis Reported aspirin allergy Recommendations: -echocardiogram with bubble study negative for right to left shunt at rest and with Valsalva -continue clopidogrel 75mg for now, would change to chronic anticoagulation due to atrial fibrillation once outside of acute stroke window -continue atorvastatin 40mg daily Problems: Consultation Date/Type/Reason Admit Date/Time December 06, 2016 at 01:35 Initial Consult Date 12/06/16 Type of Consultation: Cardiology 24 HR Interval Summary Free Text/Dictation No acute events. Detailed Summary Additional Comments 14 point review of systems negative other than per HPI. Exam/Review of Systems Vital Signs Vitals Vital Signs Date Time Temp Pulse Resp B/P Pulse Ox O2 Delivery O2 Flow Rate FiO2 12/09/16 12:00 76 12/09/16 11:35 98.3 20 93/44 94 12/07/16 11:00 Room Air Intake and Output 12/08/16 12/08/16 12/09/16 15:00 23:00 07:00 Intake Total 950 ml 400 ml Output Total 1100 ml 600 ml Balance -150 ml -200 ml Exam Constitutional: alert, well developed Psych: depression Head: atraumatic, normocephalic Eyes: nl conjunctiva, nl lids ENMT: nl external ears & nose, nl nasal mucosa & septum Neck: non-tender, supple, No jvd Respiratory: clear to auscultation, normal air movement Cardiovascular: regular rate and rhythm Gastrointestinal: non-tender, soft Musculoskeletal: nl extremities to inspection Extremities: No clubbing, No cyanosis, No edema Neurological: nl mental status Results Result Diagram: 12/08/16 1350 12/09/16 0720 Results 24 hrs Laboratory Tests Test 12/09/16 07:20 Sodium Level 137 Potassium Level 4.4 Chloride Level 103 Carbon Dioxide Level 30 Anion Gap 8 Blood Urea Nitrogen 14 Creatinine 0.65 Glucose Level 92 Calcium Level 8.4 Phosphorus Level 4.2 Magnesium Level 1.6 L Medications Medications Current Medications Acetaminophen (Tylenol Tab) 650 mg Q4H PRN PO Temp greater than 99.6F Last administered on 12/06/16 23:14; Admin Dose 650 MG; Start 12/06/16 at 01:00 Docusate Sodium (Colace) 100 mg BID PO Last administered on 12/09/16 09:02; Admin Dose 100 MG; Start 12/06/16 at 09:00 Ondansetron HCl (Zofran Inj) 4 mg Q6H PRN IV NAUSEA AND/OR VOMITING; Start 12/06 at 02:00 Acetaminophen/ Hydrocodone Bitart ([place] (5/325)) 1 tab Q4H PRN PO PAIN Last administered on 12/07/16 20:16; Admin Dose 1 TAB; Start 12/06/16 at 09:30 Atorvastatin Calcium (Lipitor) 40 mg HS PO Last administered on 12/08/16 20:45 ; Admin Dose 40 MG; Start 12/06/16 at 21:00 Clopidogrel Bisulfate (plaVIX) 75 mg DAILY PO Last administered on 12/09/16 09 :02; Admin Dose 75 MG; Start 12/07/16 at 11:30 Olanzapine (Zyprexa) 5 mg QHS PO Last administered on 12/08/16 20:45; Admin Dose 5 MG; Start 12/07/16 at 21:00 Sertraline HCl (Zoloft) 50 mg DAILY PO Last administered on 12/09/16 09:02; Admin Dose 50 MG; Start 12/07/16 at 17:30 Miscellaneous Information Patients own medicat... BID@10,16 XX Last administered on 12/09/16 09:02; Admin Dose 1 EA; Start 12/08/16 at 10:00 Morphine Sulfate (morphine) 2 mg Q3H PRN IV PAIN LEVEL 4-7 Last administered on 12/09/16 12:14; Admin Dose 2 MG; Start 12/08/16 at 10:30 Pantoprazole (Protonix Tab) 40 mg DAILY@06 PO Last administered on 12/09/16 06 :28; Admin Dose 40 MG; Start 12/09/16 at 06:00 Lorazepam (Ativan) 1 mg HS PO Last administered on 12/08/16 20:46; Admin Dose 1 MG; Start 12/08/16 at 21:00 GERARD PRATT MD December 09, 2016 13:58
--- NOTE | 2016-12-09 15:06 | PN ---
Date/Time of Note Date/Time of Note DATE: 12/09/16 TIME: 15:02 Assessment/Plan VTE Prophylaxis VTE Prophylaxis Intervention: SCD's Lines/Catheters IV Catheter Type (from Nrs): [place] Assessment/Plan Chief Complaint/Hosp Course #1 Acute CVA status post TPA -Patient has persistent left-sided weakness, and a have had a right MCA infarct but repeat CT head is negative -Neurology consultation appreciated -refusing PT, CM to place in SNF #2 Previous history of CVA -Continue statin and Plavix #3 Psychiatric disorder -Continue home meds #4 History of arrhythmia status post pacemaker placement in the past -Cardiology consultation appreciated, pt has P-Afib and rec is for anticoagulation once outside the CVA window #5 DVT and GI prophylaxis: SCDs, IV Protonix. Problems: Subjective 24 Hr Interval Summary Neurologic: headache Exam/Review of Systems Vital Signs Vitals Vital Signs Date Time Temp Pulse Resp B/P Pulse Ox O2 Delivery O2 Flow Rate FiO2 12/09/16 12:00 76 12/09/16 11:35 98.3 20 93/44 94 12/07/16 11:00 Room Air Intake and Output 12/08/16 12/08/16 12/09/16 15:00 23:00 07:00 Intake Total 950 ml 400 ml Output Total 1100 ml 600 ml Balance -150 ml -200 ml Exam Constitutional: alert Respiratory: clear to auscultation Cardiovascular: regular rate and rhythm Gastrointestinal: soft, No distended Musculoskeletal: nl extremities to inspection Results Result Diagram: 12/08/16 1350 12/09/16 0720 Results 24 hrs Laboratory Tests Test 12/09/16 07:20 Sodium Level 137 Potassium Level 4.4 Chloride Level 103 Carbon Dioxide Level 30 Anion Gap 8 Blood Urea Nitrogen 14 Creatinine 0.65 Glucose Level 92 Calcium Level 8.4 Phosphorus Level 4.2 Magnesium Level 1.6 L Medications Medications Current Medications Acetaminophen (Tylenol Tab) 650 mg Q4H PRN PO Temp greater than 99.6F Last administered on 12/06/16 23:14; Admin Dose 650 MG; Start 12/06/16 at 01:00 Docusate Sodium (Colace) 100 mg BID PO Last administered on 12/09/16 09:02; Admin Dose 100 MG; Start 12/06/16 at 09:00 Ondansetron HCl (Zofran Inj) 4 mg Q6H PRN IV NAUSEA AND/OR VOMITING; Start 12/06 at 02:00 Acetaminophen/ Hydrocodone Bitart ([place] (5/325)) 1 tab Q4H PRN PO PAIN Last administered on 12/07/16 20:16; Admin Dose 1 TAB; Start 12/06/16 at 09:30 Atorvastatin Calcium (Lipitor) 40 mg HS PO Last administered on 12/08/16 20:45 ; Admin Dose 40 MG; Start 12/06/16 at 21:00 Clopidogrel Bisulfate (plaVIX) 75 mg DAILY PO Last administered on 12/09/16 09 :02; Admin Dose 75 MG; Start 12/07/16 at 11:30 Olanzapine (Zyprexa) 5 mg QHS PO Last administered on 12/08/16 20:45; Admin Dose 5 MG; Start 12/07/16 at 21:00 Sertraline HCl (Zoloft) 50 mg DAILY PO Last administered on 12/09/16 09:02; Admin Dose 50 MG; Start 12/07/16 at 17:30 Miscellaneous Information Patients own medicat... BID@10,16 XX Last administered on 12/09/16 09:02; Admin Dose 1 EA; Start 12/08/16 at 10:00 Morphine Sulfate (morphine) 2 mg Q3H PRN IV PAIN LEVEL 4-7 Last administered on 12/09/16 12:14; Admin Dose 2 MG; Start 12/08/16 at 10:30 Pantoprazole (Protonix Tab) 40 mg DAILY@06 PO Last administered on 12/09/16 06 :28; Admin Dose 40 MG; Start 12/09/16 at 06:00 Lorazepam (Ativan) 1 mg HS PO Last administered on 12/08/16 20:46; Admin Dose 1 MG; Start 12/08/16 at 21:00 BLAKE ACEVEDO December 09, 2016 15:06
[2016-12-09] MEDS: OLANZAPINE 5 MG TAB PO SCH (20:48)
[2016-12-09] MEDS: ATORVASTATIN 40 MG TAB PO SCH (20:48)
[2016-12-09] MEDS: LORAZEPAM 1 MG TAB PO SCH (22:14)
[2016-12-10] VITALS (11 sets, daily range): BP systolic 92–138; BP diastolic 45–60; PULSE 60–78; RESP 16–20
[2016-12-10] MEDS: morphine 2 MG INJ IV PRN ×7 (01:42→20:21)
[2016-12-10] MEDS: PANTOPRAZOLE (EC) 40 MG TAB PO SCH (05:20)
[2016-12-10] MEDS: SERTRALINE 50 MG TAB PO SCH (08:29)
[2016-12-10] MEDS: DOCUSATE SODIUM 100 MG CAP PO SCH (08:29)
[2016-12-10] MEDS: CLOPIDOGREL 75 MG TAB PO SCH (08:29)
[2016-12-10] MEDS ORDERED: APIX5TAB PO (15:56)
--- NOTE | 2016-12-10 16:22 | DS ---
DATE OF ADMISSION: 12/06/2016 DATE OF DISCHARGE: 12/10/2016 DISCHARGE DIAGNOSES: 1. Acute cerebrovascular accident status post tPA, now stable. The patient has persistent left-mando ed weakness which appears to be at her baseline. Repeat CT head was negative for any acute stroke. The patient is stable after receiving tPA. 2. History of cerebrovascular accident. The patient is already on aspirin, statin, Plavix. We jenny l continue that. 3. History of depression. Continue home medications. 4. History of arrhythmia, status post pacemaker placement in the past. Cardiology consultation anil reciated. The patient does have atrial fibrillation. ____ for anticoagulation was outside the CVA window. HOSPITAL COURSE: The patient is a 66-year-old female with a history of stroke, depression, AFib, st atus post pacemaker placement in the past. The patient presents with acute worsening left-sided wea kness. She does have baseline left-sided weakness. She received tPA. The patient did have a neck CTA that showed no significant stenosis or occlusion. No dissection, aneurysm, or malformation. In itial brain CT showed no acute pathology. There is a moderate to large chronic right MCA territory infarction, unchanged, small chronic left parietal lobe infarction that is also unchanged. Followup brain CT after having received tPA, 4 hours later, the patient continued to have no definite interv al change. There is no visible acute or subacute infarct. No evidence of hemorrhage. The patient did not have any acute stroke manifestation. The patient did have workup by PT, and the patient did require assistance for ambulation, so the patient requires further physical therapy; hence, arrange ments were made for the patient to go to a rehab facility. The patient's A1c was normal at 5.3. LD L was normal at 37. The patient was felt to be stable for discharge. Of note, the patient was seen by neurology during this hospitalization as well as cardiology. Cardiology did interrogate the pat ient's pacemaker and did find the patient to have paroxysmal atrial fibrillation. They recommended that the patient continue Plavix for now and change to chronic anticoagulation due to AFib once outs petra the stroke window. On the day of discharge, the patient's vitals, labs, and physical exam were stable. She had no acute complaints. Questions were answered. CONDITION ON DISCHARGE: Stable. DISPOSITION: To home. MEDICATIONS: The patient is to continue home medications except for aspirin and Plavix and was give n a new prescription for Eliquis 5 mg p.o. b.i.d. FOLLOWUP: The patient is to follow up with physician at the care home facility. Greater than 30 minutes was spent coordinating discharge of patient. Dictated By: BLAKE ACEVEDO MD BS/NTS Conf#: [id number] DID#: [id number]
--- NOTE | 2016-12-10 16:23 | CONS ---
Date/Time of Note Date/Time of Note DATE: 12/10/16 TIME: 16:22 Assessment/Plan Assessment/Plan Chief Complaint/Hosp Course Assessment: Paroxysmal atrial fibrillation - currently sinus rhythm Dual-chamber permanent pacemaker ([employer], implanted [address] Decker) - interrogated 12/08/2016 with normal function, brief episodes of atrial fibrillation most recently 09/15/2016 with duration of 17 minutes Suspected acute stroke - status post TPA History of recurrent strokes History of deep vein thrombosis Reported aspirin allergy Recommendations: -echocardiogram with bubble study negative for right to left shunt at rest and with Valsalva -continue clopidogrel 75mg for now, would change to chronic anticoagulation due to atrial fibrillation once outside of acute stroke window -continue atorvastatin 40mg daily Problems: Consultation Date/Type/Reason Admit Date/Time December 06, 2016 at 01:35 Initial Consult Date 12/06/16 Type of Consultation: Cardiology 24 HR Interval Summary Free Text/Dictation No acute events. Detailed Summary Additional Comments 14 point review of systems without changes. Exam/Review of Systems Vital Signs Vitals Vital Signs Date Time Temp Pulse Resp B/P Pulse Ox O2 Delivery O2 Flow Rate FiO2 12/10/16 15:36 98.4 67 18 100/55 93 12/07/16 11:00 Room Air Intake and Output 12/09/16 12/09/16 12/10/16 15:00 23:00 07:00 Intake Total 1440 ml 300 ml Output Total 700 ml 1300 ml Balance 740 ml -1000 ml Exam Constitutional: alert, well developed Psych: depression Head: atraumatic, normocephalic Eyes: nl conjunctiva, nl lids ENMT: nl external ears & nose, nl nasal mucosa & septum Neck: non-tender, supple, No jvd Respiratory: clear to auscultation, normal air movement Cardiovascular: regular rate and rhythm Gastrointestinal: non-tender, soft Musculoskeletal: nl extremities to inspection Extremities: No clubbing, No cyanosis, No edema Neurological: nl mental status Results Result Diagram: 12/08/16 1350 12/09/16 0720 Medications Medications Current Medications Acetaminophen (Tylenol Tab) 650 mg Q4H PRN PO Temp greater than 99.6F Last administered on 12/06/16t 23:14; Admin Dose 650 MG; Start 12/06/16 at 01:00 Docusate Sodium (Colace) 100 mg BID PO Last administered on 12/10/16 08:29; Admin Dose 100 MG; Start 12/06/16 at 09:00 Ondansetron HCl (Zofran Inj) 4 mg Q6H PRN IV NAUSEA AND/OR VOMITING; Start 12/06 at 02:00 Acetaminophen/ Hydrocodone Bitart ([place] (5/325)) 1 tab Q4H PRN PO PAIN Last administered on 12/07/16 20:16; Admin Dose 1 TAB; Start 12/06/16 at 09:30 Atorvastatin Calcium (Lipitor) 40 mg HS PO Last administered on 12/09/16 20:48 ; Admin Dose 40 MG; Start 12/06/16 at 21:00 Clopidogrel Bisulfate (plaVIX) 75 mg DAILY PO Last administered on 12/10/16 08 :29; Admin Dose 75 MG; Start 12/07/16 at 11:30 Olanzapine (Zyprexa) 5 mg QHS PO Last administered on 12/09/16 20:48; Admin Dose 5 MG; Start 12/07/16 at 21:00 Sertraline HCl (Zoloft) 50 mg DAILY PO Last administered on 12/10/16 08:29; Admin Dose 50 MG; Start 12/07/16 at 17:30 Miscellaneous Information Patients own medicat... BID@10,16 XX Last administered on 12/10/16 15:25; Admin Dose 1 EA; Start 12/08/16 at 10:00 Morphine Sulfate (morphine) 2 mg Q3H PRN IV PAIN LEVEL 4-7 Last administered on 12/10/16 14:29; Admin Dose 2 MG; Start 12/08/16 at 10:30 Pantoprazole (Protonix Tab) 40 mg DAILY@06 PO Last administered on 12/10/16 05 :20; Admin Dose 40 MG; Start 12/09/16 at 06:00 Lorazepam (Ativan) 1 mg HS PO Last administered on 12/09/16 22:14; Admin Dose 1 MG; Start 12/08/16 at 21:00 GERARD PRATT MD December 10, 2016 16:23
== END 2016-12-10 20:43 | DRG 63 ==
LOC: E/R 19:14 → ICU 12-06 01:35 → TEL 12-07 12:00
PROVIDERS: ADMIT Family Medicine; ATTEND Family Medicine
DX: I63.9 Cerebral infarction, unspecified (principal); E61.1 Iron deficiency; I48.0 Paroxysmal atrial fibrillation; F32.9 Major depressive disorder, single episode, unspecified; Z79.02 Long term (current) use of antithrombotics/antiplatelets; Z95.0 Presence of cardiac pacemaker; Z86.73 Personal history of transient ischemic attack (TIA), and cerebral infarction without residual deficits; R29.712 NIHSS score 12; Z86.718 Personal history of other venous thrombosis and embolism
CPT/HCPCS: 36415; 70450; 70496; 70498; 71010; 80048; 80061; 80307; 81003; 83036; 83735; 84100; 84484; 85025; 85610; 85730; 87081; 92523; 92526; 92610; 93005; 93308; 96374; 96375; 96376; 97162; C9113; J1170; J2060; J2270; J2405; J2997; J3030; J7030; J7070; Q9967

== ENCOUNTER 2016-12-19 23:46 | Observation (INO) | payer OTHER ==
[~2016-12-19] VITALS: Ht 162.6 cm; Wt 70.4 kg
[~2016-12-19 23:46] MED LIST changes: +APIX5TAB PO; -ASPI-664 PO; -CLOP75TA4 PO; -IRON; +IRON ORAL
[2016-12-20] VITALS (12 sets, daily range): BP systolic 81–129; BP diastolic 44–66; PULSE 60–61; RESP 10–18; TEMP 98; Ht 162.6 cm; Wt 70.4 kg
--- NOTE | 2016-12-20 00:53 | RADRPT ---
AMENDMENT: 12/20/2016 1:05:55 AM Carl Longo M.d Critical Results were called to nurse Nat Natarajan at 12:54 a.m. on 12/20/2016. PROCEDURE: CT Brain without contrast. CLINICAL INDICATION: Neurologic deficit, code stroke. TECHNIQUE: A CT of the brain was performed utilizing axial sections from the skull base through th e vertex without contrast. Multiplanar re-formations were generated. Images were reviewed on a high- resolution PACS workstation. CTDIvol: 45.01 mGy. DLP: 720.23 mGy-cm. One or more of the following dose reduction techniques were used: - Automated exposure control. - Adjustment of the mA and/or kV according to patient size. - Use of iterative reconstruction technique. COMPARISON: None available FINDINGS: There is mild to moderate generalized volume loss. No hydrocephalus is seen. There is no mass effec t. No acute intracranial hemorrhage is identified. There is no extra-axial collection. No CT eviden ce of acute infarction is identified. A large chronic right MCA territory infarction is unchanged. There is also a small chronic left parietal lobe infarction and chronic lacunar infarctions in the l eft basal ganglia region. There is patchy low attenuation in the supratentorial white matter, a nons pecific finding which most likely represents the sequela of mild chronic microvascular ischemic dise ase. There are mild atherosclerotic arterial calcifications. There is no significant mucosal disease in the paranasal sinuses. The visualized mastoid air cells a re clear. The ossesous structures are unremarkable. The extracranial soft tissues are unremarkable. IMPRESSION: 1. No evidence of acute infarction or intracranial hemorrhage. 2. Large chronic right MCA territory infarction. 3. Small chronic left parietal lobe infarction and chronic lacunar infarction in the left basal ansemlo glia region, also unchanged 4. Mild to moderate generalized volume loss. 5. Atherosclerotic arterial calcifications. RPTAT: HTAR .Carl Longo MD, MD Date Time Electronically viewed and signed by .Carl Longo MD, on 12/20/2016 01:06 .R/
[2016-12-20 01:15] LABS: ADD SCAN DIFF NO
[2016-12-20 01:17] LABS: BASOPHILS % 0.8 % (0.0-2.0); EOSINOPHILS # 0.2 10^3/ul (0.0-0.5); EOSINOPHILS % 4.4 % (0.0-7.0); HEMATOCRIT 36.5 % (37.0-47.0); HEMOGLOBIN 11.6 g/dl (12.0-16.0); LYMPHOCYTES # 1.7 10^3/ul (0.8-2.9); LYMPHOCYTES % 35.8 % (15.0-51.0); MEAN CORPUSCULAR HEMOGLOBIN 31.2 pg (29.0-33.0); MEAN CORPUSCULAR HGB CONC 31.8 g/dl (32.0-37.0); MEAN CORPUSCULAR VOLUME 98.1 fl (82.0-101.0); MEAN PLATELET VOLUME 10.1 fl (7.4-10.4); MONOCYTE # 0.4 10^3/ul (0.3-0.9); MONOCYTES % 7.3 % (0.0-11.0); NEUTROPHIL # 2.5 10^3/ul (1.6-7.5); NEUTROPHILS % 51.5 % (39.0-77.0); PLATELET COUNT 149 10^3/UL (140-415); RED BLOOD COUNT 3.72 10^6/ul (4.20-5.40); WHITE BLOOD COUNT 4.8 10^3/ul (4.8-10.8)
--- NOTE | 2016-12-20 01:24 | RADRPT ---
PROCEDURE: XR Chest. CLINICAL INDICATION: Stroke. TECHNIQUE: Single frontal chest x-ray. COMPARISON: 12/05/2016 FINDINGS: Right subclavian biventricular pacemaker is present.. Heart is mildly enlarged. There are atherosc lerotic calcifications of the aortic knob.. There is mild pulmonary vascular congestion without defi nite CHF. Moderate hypoventilation para. There is no pleural effusion. There is no pneumothorax. The osseous structures are unremarkable. IMPRESSION: Cardiomegaly. Hypoventilation. Mild pulmonary vascular congestion. RPTAT: HMVK .Luis Haynes MD, Date Time Electronically viewed and signed by .Luis Haynes MD, on 12/20/2016 01:24 .K/
[2016-12-20 01:38] LABS: ALBUMIN 3.7 g/dl (3.3-4.9); CHLORIDE 106 mmol/L (97-110)
[2016-12-20 01:39] LABS: SODIUM 146 mmol/L (135-144)
[2016-12-20 01:41] LABS: ALBUMIN/GLOBULIN RATIO 1.23; ALKALINE PHOSPHATASE 88 IU/L (42-121); ANION GAP 15 (8-16); ASPARTATE AMINO TRANSFERASE 31 IU/L (15-46); BILIRUBIN,INDIRECT 0.1 mg/dl (0-1.1); BILIRUBIN,TOTAL 0.1 mg/dl (0.2-1.3); CARBON DIOXIDE 29 mmol/L (21-31); CREATININE 0.78 mg/dl (0.44-1.00); INR 1.18; PROTIME 15.1 Sec (12.2-14.2); PT RATIO 1.2; TOTAL PROTEIN 6.7 g/dl (6.1-8.1)
[2016-12-20 01:42] LABS: ALANINE AMINOTRANSFERASE 29 IU/L (13-69); BLOOD UREA NITROGEN 14 mg/dl (7-20); CALCIUM 8.7 mg/dl (8.4-10.2); GLUCOSE 86 mg/dl (70-220); PARTIAL THROMBOPLASTIN TIME 34.7 Sec (25.0-35.0)
[2016-12-20] MEDS ORDERED: morphine 4 MG/ML VIAL IV STA (01:42)
[2016-12-20 01:54] LABS: TROPONIN-I < 0.012 ng/ml (0.00-0.12)
--- NOTE | 2016-12-20 02:30 | ERA ---
ER Documentation Chief Complaint Date/Time DATE: 12/20/16 TIME: 02:26 Chief Complaint Right side weakness per pt. No deficits noted. BYRNES HPI This is a 66 year female who was a left-sided weakness in her upper and lower extremity. She said it is progressively worsening. She had TPA infusion 2 weeks ago for similar complaints. Denies any other current complaints. Denies any slurred speech. Denies any other current problems. ROS All systems reviewed and are negative except as per history of present illness. Medications Home Meds Active Scripts Apixaban* (Eliquis*) 5 Mg Tablet, 5 MG PO BID, #60 TAB Prov:BLAKE ACEVEDO 12/10/16 Reported Medications Mv,Ca,Min/Iron Fum/Fa/Lyco/Lut (COMPLETE MULTI TABLET) 1 Each Tablet, 1 EACH PO , TAB 11/20/16 [Iron] No Conflict Check IRON GLYCINATE 11/20/16 Sertraline Hcl* (Sertraline Hcl*) 50 Mg Tablet, 50 MG PO DAILY, #30 TAB 11/20/16 Sennosides* (Senna Lax*) 8.6 Mg Tablet, 1 TAB PO BID Y for CONSTIPATION, TAB 11/20/16 Loperamide Hcl* (Loperamide Hcl*) 2 Mg Cap, 2 MG PO DAILY Y for DIARRHEA, CAP 11/20/16 Olanzapine* (Zyprexa*) 5 Mg Tablet, 5 MG PO QHS, #30 TAB 11/20/16 Atorvastatin* (Atorvastatin*) 40 Mg Tablet, 40 MG PO QHS, #30 TAB 11/20/16 Allergies Allergies: Coded Allergies: Penicillins (Verified Allergy, Unknown, 11/20/16) PMhx/Soc History of Surgery: Yes Anesthesia Reaction: No Hx Neurological Disorder: Yes (HX OF MULTIPLE CVAS) Hx Respiratory Disorders: No Hx Cardiac Disorders: Yes (HYPERCHOLESTEROL) Hx Psychiatric Problems: Yes (DEPRESSION) Hx Miscellaneous Medical Probl: Yes (multiple strokes/TIAs, pacemaker, DVT, afib) Hx Alcohol Use: No Hx Substance Use: No Hx Tobacco Use: No Smoking Status: Never smoker Physical Exam Vitals Vital Signs Date Time Temp Pulse Resp B/P Pulse Ox O2 Delivery O2 Flow Rate FiO2 12/20/16 01:14 Nasal Cannula 12/20/16 00:11 98.5 92 18 111/59 99 Physical Exam Const: [] Head: Atraumatic Eyes: Normal Conjunctiva ENT: Normal External Ears, Nose and Mouth. Neck: Full range of motion..~ No meningismus. Resp: Clear to auscultation bilaterally Cardio: Regular rate and rhythm, no murmurs Abd: Soft, non tender, non distended. Normal bowel sounds Skin: No petechiae or rashes Back: No midline or flank tenderness Ext: No cyanosis, or edema Neur: Awake and alert Psych: Normal Mood and Affect Result Diagram: 12/20/16 0110 12/20/16 0110 Results 24 hrs Laboratory Tests Test 12/20/16 01:10 12/20/16 01:32 White Blood Count 4.810^3/ul Red Blood Count 3.7210^6/ul Hemoglobin 11.6g/dl Hematocrit 36.5% Mean Corpuscular Volume 98.1fl Mean Corpuscular Hemoglobin 31.2pg Mean Corpuscular Hemoglobin Concent 31.8g/dl Red Cell Distribution Width 14.0% Platelet Count 20611^3/UL Mean Platelet Volume 10.1fl Neutrophils % 51.5% Lymphocytes % 35.8% Monocytes % 7.3% Eosinophils % 4.4% Basophils % 0.8% Nucleated Red Blood Cells % 0.0/100WBC Neutrophils # 2.510^3/ul Lymphocytes # 1.710^3/ul Monocytes # 0.410^3/ul Eosinophils # 0.210^3/ul Basophils # 0.010^3/ul Nucleated Red Blood Cells # 0.010^3/ul Prothrombin Time 15.1Sec Prothrombin Time Ratio 1.2 INR International Normalized Ratio 1.18 Activated Partial Thromboplast Time 34.7Sec Sodium Level 146mmol/L Potassium Level 4.0mmol/L Chloride Level 106mmol/L Carbon Dioxide Level 29mmol/L Anion Gap 15 Blood Urea Nitrogen 14mg/dl Creatinine 0.78mg/dl Glucose Level 86mg/dl Calcium Level 8.7mg/dl Total Bilirubin 0.1mg/dl Direct Bilirubin 0.00mg/dl Indirect Bilirubin 0.1mg/dl Aspartate Amino Transf (AST/SGOT) 31IU/L Alanine Aminotransferase (ALT/SGPT) 29IU/L Alkaline Phosphatase 88IU/L Troponin I < 0.012ng/ml Total Protein 6.7g/dl Albumin 3.7g/dl Globulin 3.00g/dl Albumin/Globulin Ratio 1.23 Bedside Glucose 98mg/dL Current Medications Medications (Trade) Dose Ordered Sig/Neelam Route PRN Reason Start Time Stop Time Status Last Admin Dose Admin Morphine Sulfate (morphine) 4 mg ONCE STAT IV 12/20/16 01:42 12/20/16 01:44 DC 12/20/16 01:53 Procedures/MDM EKG: Rate/Rhythm: [Normal Sinus Rhythm] QRS, ST, T-waves: [No changes consistent w/ acute ischemia] Impression: [No evidence of ischemia or arrhythmia] Chest X-ray 1V Interpreted by me: Soft Tissue: No acute abnormalities Bones: No acute abnormalities Mediastinum/Cardiac Silhouette/Lungs: [No acute abnormalities] CT of the head was negative\\ Telemetry neuro was consulted, however given the fact the patient had a TPA with an last few weeks, the patient is not a TPA candidate. Recommended admission MRI MRA of the brain in the morning Medical decision-makin year female left-sided weakness per complaints. No evidence on exam. At this point will be admitted for further evaluation and management. Departure Diagnosis: Primary Impression: Acute weakness Condition: Stable ROSEMARY CHAIDEZ December 20, 2016 02:30
[2016-12-20 03:03] LABS: ADD UMIC NO; URINE BILIRUBIN (Dip) NEGATIVE (NEGATIVE); URINE BLOOD (Dip) NEGATIVE (NEGATIVE); URINE COLOR LT. YELLOW (YELLOW); URINE GLUCOSE (Dip) NEGATIVE (NEGATIVE); URINE KETONES (Dip) NEGATIVE (NEGATIVE); URINE LEUKOCYTE ESTERASE (Dip) NEGATIVE (NEGATIVE); URINE NITRITE (Dip) NEGATIVE (NEGATIVE); URINE TOTAL PROTEIN (Dip) NEGATIVE (NEGATIVE); URINE UROBILINOGEN (Dip) 0.2 E.U./dL (0.1-1.0)
[2016-12-20 03:45] LABS: BARBITURATES NEGATIVE (NEGATIVE); BENZODIAZEPINES NEGATIVE (NEGATIVE); CANNABINOIDS NEGATIVE (NEGATIVE); COCAINE NEGATIVE (NEGATIVE); OPIATES POSITIVE (NEGATIVE)
--- NOTE | 2016-12-20 07:58 | HP ---
DATE OF ADMISSION: 12/19/2016 TIME SEEN: 6 a.m. CHIEF COMPLAINT: Left-sided weakness and headache. HISTORY OF PRESENT ILLNESS: The patient is a 66-year-old female with a history of CVA, atrial fibri llation, pacemaker, depression, dyslipidemia, and DVT, who presented to the emergency department com plaining of left-sided weakness. The patient was recently admitted here and was discharged 10 days ago after she initially presented with left-sided weakness and numbness. She did receive TPA at skip t time. She has a history of multiple strokes and TIAs, and at the time of discharge the patient ap peared to be at her baseline as far as her left-sided weakness was concerned. At that time head CT showed a large chronic right MCA territory infarct, a small chronic left parietal lobe infarct, and a chronic lacunar infarct in the left basal ganglia. Carotid Doppler ultrasound and CT angiogram of the head and neck did not show any significant stenosis or occlusion. The patient was also seen by cardiology and actually had her pacemaker interrogated, which showed normal function with brief epi sodes of atrial fibrillation in September of this year. [facility] of progressively worsening left-sided weakness. When she presented to the ER her vitals were within acceptable range. Brain CT was done and it show ed no evidence of acute infarct, but showed the large chronic right MCA territory infarct, the small chronic left parietal lobe infarct and chronic lacunar infarct in the left basal ganglia region, wh ich is unchanged. The patient did receive morphine while she was in the ER. REVIEW OF SYSTEMS: Negative except as mentioned in the HPI. PAST MEDICAL HISTORY: As per HPI. PAST SURGICAL HISTORY: Hysterectomy and pacemaker placement. SOCIAL HISTORY: No use of tobacco, alcohol or illicit drug use. ALLERGIES: 1. PENICILLIN. 2. POSSIBLE ASPIRIN ALLERGY WELL. HOME MEDICATIONS: 1. Eliquis. 2. Lipitor. 3. Zyprexa. 4. Sertraline. 5. Loperamide. 6. Senna. 7. Multivitamin. 8. Iron PHYSICAL EXAMINATION: VITAL SIGNS: Stable. GENERAL: In no acute distress, was sleeping but arousable. HEENT: No obvious head deformity. Pupils are reactive to light. CARDIOVASCULAR: Regular rate and rhythm with no extra sounds. LUNGS: Clear. ABDOMEN: Soft, nontender, nondistended. Positive bowel sounds. EXTREMITIES: There is left-sided weakness, mainly the left lower extremity. LABORATORY: Hemoglobin 11.6, sodium 146. Otherwise, CBC and CMP are within normal limits. IMAGING: Brain CT with results as mentioned in the HPI. Chest x-ray shows cardiomegaly and mild pulmonary vascular congestion. IMPRESSION: 1. Sub-acute cerebrovascular accident. 2. History of multiple strokes and transient ischemic attacks, with a history of recent TPA 2 weeks ago. 3. History of atrial fibrillation. 4. Pacemaker. 5. History of depression. 6. History of deep venous thrombosis. PLAN: Will admit to the telemetry unit. The patient was recently admitted here for a similar prese ntation and actually received TPA. Brain CT today did not show any new acute infarct. Will obtain MRI of her brain, especially since none was done during her recent admission. Will place a neurolog y consultation and continue her home medications which includes among other things Lipitor and Eliqu is. Note that even though not documented, the patient may have an ALLERGY TO ASPIRIN. She is curre ntly not on any antiplatelet therapy. Will have neurology comment whether or not she needs to be re started on Plavix, noting that she is being anticoagulated with Eliquis, but believe she would benef it from antiplatelet therapy. She recently had fasting lipids checked, which were within normal mackay its, so there is no need to check during this hospitalization. She will be evaluated by [facility]. Will consider re-consulting cardiology, given her cardiac history. Further workup and management per clinical course. Dictated By: ROSEMARY GARCIA/ISRAEL Conf#: [id number] DID#: [id number]
[2016-12-20] MEDS ORDERED: ACETAMINOPHEN 325 MG TAB PO PRN (08:30)
[2016-12-20] MEDS ORDERED: morphine 10 MG INJ IM PRN (08:30)
[2016-12-20] MEDS ORDERED: NACL 0.9% 3 ML SYG IV SCH (08:30)
[2016-12-20] MEDS ORDERED: LORAZEPAM 2 MG INJ IV PRN (08:30)
[2016-12-20] MEDS ORDERED: ALBUTEROL/IPRATROPIUM (NEB) 3 ML AMP HHN PRN (08:30)
[2016-12-20] MEDS ORDERED: ONDANSETRON 4 MG INJ IV PRN (08:30)
[2016-12-20] MEDS ORDERED: SENNA TAB PO PRN (08:30)
[2016-12-20] MEDS ORDERED: morphine 2 MG INJ IV PRN (08:30)
[2016-12-20] MEDS: SERTRALINE 50 MG TAB PO SCH (09:22)
[2016-12-20] MEDS: morphine 2 MG INJ IV PRN ×4 (10:45→21:32)
--- NOTE | 2016-12-20 14:31 | PN ---
Date/Time of Note Date/Time of Note DATE: 12/20/16 TIME: 14:19 Assessment/Plan VTE Prophylaxis VTE Prophylaxis Intervention: other Lines/Catheters IV [facility] (from [facility] Peripheral IV Assessment/Plan Chief Complaint/Hosp Course 1. Sub-acute cerebrovascular accident Resume Eliquis 2. History of multiple strokes and transient ischemic attacks, with a history of recent TPA 2 weeks ago. -PT eval 3. Paroxysmal atrial fibrillation -Resume Eliquis 4. History of pacemaker 5. History of depression 6. History of deep venous thrombosis. Prophylaxis: Eliquis Problems: Subjective 24 Hr Interval Summary Neurologic: headache Exam/Review of Systems Vital Signs Vitals Vital Signs Date Time Temp Pulse Resp B/P Pulse Ox O2 Delivery O2 Flow Rate FiO2 12/20/16 13:00 60 11 92/44 100 Room Air 12/20/16 08:00 97.7 Exam Respiratory: clear to auscultation Cardiovascular: regular rate and rhythm Gastrointestinal: soft, No distended Musculoskeletal: nl extremities to inspection Results Result Diagram: 12/20/16 0110 12/20/16 0110 Results 24 hrs Laboratory Tests Test 12/20/16 01:10 12/20/16 01:32 12/20/16 02:28 White Blood Count 4.8 # Red Blood Count 3.72 L Hemoglobin 11.6 L Hematocrit 36.5 L Mean Corpuscular Volume 98.1 Mean Corpuscular Hemoglobin 31.2 Mean Corpuscular Hemoglobin Concent 31.8 L Red Cell Distribution Width 14.0 Platelet Count 149 Mean Platelet Volume 10.1 Neutrophils % 51.5 Lymphocytes % 35.8 Monocytes % 7.3 Eosinophils % 4.4 Basophils % 0.8 Nucleated Red Blood Cells % 0.0 Neutrophils # 2.5 Lymphocytes # 1.7 Monocytes # 0.4 Eosinophils # 0.2 Basophils # 0.0 Nucleated Red Blood Cells # 0.0 Prothrombin Time 15.1 H Prothrombin Time Ratio 1.2 INR International Normalized Ratio 1.18 Activated Partial Thromboplast Time 34.7 Sodium Level 146 H Potassium Level 4.0 Chloride Level 106 Carbon Dioxide Level 29 Anion Gap 15 Blood Urea Nitrogen 14 Creatinine 0.78 Glucose Level 86 Hemoglobin A1c 5.4 Calcium Level 8.7 Total Bilirubin 0.1 L Direct Bilirubin 0.00 Indirect Bilirubin 0.1 Aspartate Amino Transf (AST/SGOT) 31 Alanine Aminotransferase (ALT/SGPT) 29 Alkaline Phosphatase 88 Troponin I < 0.012 Total Protein 6.7 Albumin 3.7 Globulin 3.00 Albumin/Globulin Ratio 1.23 Bedside Glucose 98 Urine Color LT. YELLOW Urine Clarity CLEAR Urine pH 6.0 Urine Specific [place] 1.025 Urine Ketones NEGATIVE Urine Nitrite NEGATIVE Urine Bilirubin NEGATIVE Urine Urobilinogen 0.2 E.U./dL Urine Leukocyte Esterase NEGATIVE Urine Hemoglobin NEGATIVE Urine Glucose NEGATIVE Urine Total Protein NEGATIVE Urine Opiates Screen POSITIVE Urine Barbiturates NEGATIVE Urine Amphetamines Screen NEGATIVE Urine Benzodiazepines Screen NEGATIVE Urine Cocaine Screen NEGATIVE Urine Cannabinoids NEGATIVE Medications Medications Current Medications Lorazepam (Ativan) 0.5 mg Q6H PRN IV ANXIETY; Start 12/20/16 at 08:30 Ondansetron HCl (Zofran Inj) 4 mg Q6H PRN IV NAUSEA AND/OR VOMITING; Start at 08:30 Acetaminophen (Tylenol Tab) 650 mg Q6H PRN PO PAIN LEVEL 1-3 OR FEVER; Start at 08:30 Atorvastatin Calcium (Lipitor) 40 mg QHS PO ; Start 12/20/16 at 21:00 Olanzapine (Zyprexa) 5 mg QHS PO ; Start 12/20/16 at 21:00 Senna (Senokot) 1 tab BID PRN PO CONSTIPATION; Start 12/20/16 at 08:30 Sertraline HCl (Zoloft) 50 mg DAILY PO Last administered on 12/20/16 09:22; Admin Dose 50 MG; Start 12/20/16 at 09:00 Morphine Sulfate (morphine) 2 mg Q3H PRN IV PAIN Last administered on 10:45; Admin Dose 2 MG; Start 12/20/16 at 09:00 BLAKE ACEVEDO December 20, 2016 14:30
[2016-12-20] MEDS: APIXABAN 5 MG TABLET PO SCH ×2 (15:11→21:23)
[2016-12-20] MEDS ORDERED: OLANZAPINE 5 MG TAB PO SCH (21:00)
[2016-12-20] MEDS ORDERED: APIXABAN 5 MG TABLET PO SCH (21:00)
[2016-12-20] MEDS ORDERED: ATORVASTATIN 40 MG TAB PO SCH (21:00)
[2016-12-21] MEDS: morphine 2 MG INJ IV PRN ×4 (03:21→15:42)
[2016-12-21 03:32] VITALS: BP 111/56
[2016-12-21 05:48] LABS: ADD SCAN DIFF NO
[2016-12-21 05:56] LABS: EOSINOPHILS # 0.2 10^3/ul (0.0-0.5); HEMATOCRIT 35.1 % (37.0-47.0); HEMOGLOBIN 11.6 g/dl (12.0-16.0); LYMPHOCYTES # 1.3 10^3/ul (0.8-2.9); MEAN PLATELET VOLUME 10.6 fl (7.4-10.4); MONOCYTE # 0.3 10^3/ul (0.3-0.9); MONOCYTES % 6.9 % (0.0-11.0); NEUTROPHIL # 2.4 10^3/ul (1.6-7.5); NEUTROPHILS % 55.9 % (39.0-77.0); PLATELET COUNT 156 10^3/UL (140-415); RED BLOOD COUNT 3.62 10^6/ul (4.20-5.40); RED CELL DISTRIBUTION WIDTH 13.5 % (11.5-14.5); WHITE BLOOD COUNT 4.2 10^3/ul (4.8-10.8)
[2016-12-21 06:09] LABS: POTASSIUM 4.2 mmol/L (3.5-5.1)
[2016-12-21 06:11] LABS: BILIRUBIN,INDIRECT 0.2 mg/dl (0-1.1); BILIRUBIN,TOTAL 0.2 mg/dl (0.2-1.3); CREATININE 0.65 mg/dl (0.44-1.00); MAGNESIUM 1.4 mg/dl (1.7-2.5); PHOSPHORUS 4.1 mg/dl (2.5-4.9)
[2016-12-21 06:12] LABS: ALBUMIN/GLOBULIN RATIO 1.07; CALCIUM 8.8 mg/dl (8.4-10.2); TOTAL PROTEIN 5.8 g/dl (6.1-8.1)
[2016-12-21 07:17] VITALS: BP 124/60; RESP 20
[2016-12-21] MEDS: APIXABAN 5 MG TABLET PO SCH (08:03)
[2016-12-21] MEDS: SERTRALINE 50 MG TAB PO SCH (08:03)
[2016-12-21] MEDS ORDERED: MAGNESIUM SULFATE 4 GM/100 ML 100 ML IVPB SCH (10:00)
[2016-12-21] MEDS ORDERED: MAGN400T28 PO (11:39)
[2016-12-22] MEDS ORDERED: TRAM50TA2 PO (00:45)
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
== END 2016-12-21 18:45 | disposition home or self-care (01) ==
LOC: E/R 23:46 → INTOOBSV 12-20 02:30 → UNDOADMIN 12-20 02:30 → ICU 12-20 02:30 → MS2 12-20 14:05
PROVIDERS: ADMIT Internal Medicine; ATTEND Internal Medicine
DX: R53.1 Weakness (principal); R51 Headache; Z86.73 Personal history of transient ischemic attack (TIA), and cerebral infarction without residual deficits; I48.0 Paroxysmal atrial fibrillation; F32.9 Major depressive disorder, single episode, unspecified; Z95.0 Presence of cardiac pacemaker; Z86.718 Personal history of other venous thrombosis and embolism; Z88.0 Allergy status to penicillin
CPT/HCPCS: 36415; 70450; 71010; 80053; 80307; 81003; 82962; 83036; 83735; 84100; 84484; 85025; 85610; 85730; 92610; 93005; 96365; 96366; 96372; 96374; 96375; 96376; 99285; G0378; J2270; J3475

== ENCOUNTER 2016-12-21 21:39 | Emergency (ER) | payer OTHER ==
[~2016-12-21] VITALS: Ht 162.6 cm; Wt 70.0 kg
[~2016-12-21 21:39] MED LIST changes: +MAGN400T28 PO
[2016-12-21 21:42] VITALS: Ht 162.6 cm; Wt 70.0 kg
[2016-12-21] MEDS ORDERED: HYDROCODONE/APAP (10/325) TAB PO ONE (23:30)
--- NOTE | 2016-12-22 00:01 | RADRPT ---
PROCEDURE: CT brain without contrast CLINICAL INDICATION: Headaches TECHNIQUE: A CT of the brain was performed utilizing axial sections from the skull base through th e vertex without contrast. Sagittal and coronal images were also reformatted. The exam CTDIvol = 45. 01 mGy and DLP = 720.23 mGy-cm. COMPARISON: 12/20/2016 FINDINGS: No acute intracranial hemorrhage is identified. There is no mass effect or midline shift. No extra -axial fluid collection is seen. Prominence of the ventricular system and sulci is consistent with generalized atrophy advanced for the patient's provided age of 66 years. Large area of encephalomal acia involving the right temporal, posterior frontal and right parietal lobes is again noted consist ent with a chronic posterior division right middle cerebral artery distribution infarct. A smaller area of old ischemic infarct in the left parietal lobe is also again noted. No acute posterior samuel a abnormality is present, the fourth ventricle remains midline The osseous structures are unremarkable. The mastoid air cells and visualized paranasal sinuses are clear. RPTAT:HJJR IMPRESSION: 1. No evidence of acute intracranial abnormality, mass effect or interval change from 12/20/2016. 2. Encephalomalacia involving the right middle cerebral artery distribution consistent with an old ischemic infarct is again noted superimposed upon generalized advanced atrophy for the patient's age . 3. Small area of cortical infarct involving left parietal lobe is again seen. Physician Abdias Date Time Electronically viewed and signed by Physician Abdias on 12/22/2016 00:00 /
[2016-12-22] MEDS ORDERED: TRAM50TA2 PO (00:45)
--- NOTE | 2016-12-22 00:45 | ERD ---
ER Documentation Chief Complaint Date/Time DATE: 12/22/16 TIME: 00:44 Chief Complaint headache, was dcd today here w/ diagnosis of CVA HPI This is a very pleasant 66-year-old female comes in point of headache. She is DC'd from the hospital earlier today. She was given TPA a few weeks ago for a CVA. She denies any focal neurological complaints. Pain is mild to moderate intensity. No other current issues. Nonfocal neurologically. ROS All systems reviewed and are negative except as per history of present illness. Medications Home Meds Active Scripts Magnesium Oxide* (Magnesium Oxide*) 400 Mg Tablet, 400 MG PO BID for 60 Days, TAB Prov:BLAKE ACEVEDO 12/21/16 Apixaban* (Eliquis*) 5 Mg Tablet, 5 MG PO BID, #60 TAB Prov:BLAKE ACEVEDO 12/10/16 Reported Medications Mv,Ca,Min/Iron Fum/Fa/Lyco/Lut (COMPLETE MULTI TABLET) 1 Each Tablet, 1 EACH PO , TAB 11/20/16 [Iron] No Conflict Check, 1 TAB ORAL DAILY IRON GLYCINATE 11/20/16 Sertraline Hcl* (Sertraline Hcl*) 50 Mg Tablet, 50 MG PO DAILY, #30 TAB 11/20/16 Sennosides* (Senna Lax*) 8.6 Mg Tablet, 1 TAB PO BID Y for CONSTIPATION, TAB 11/20/16 Loperamide Hcl* (Loperamide Hcl*) 2 Mg Cap, 2 MG PO DAILY Y for DIARRHEA, CAP 11/20/16 Olanzapine* (Zyprexa*) 5 Mg Tablet, 5 MG PO QHS, #30 TAB 11/20/16 Atorvastatin* (Atorvastatin*) 40 Mg Tablet, 40 MG PO QHS, #30 TAB 11/20/16 Allergies Allergies: Coded Allergies: Penicillins (Verified Allergy, Unknown, 11/20/16) PMhx/Soc History of Surgery: Yes (Pacemaker, Hysterectomy, Gastric Byass ) Anesthesia Reaction: No Hx Neurological Disorder: Yes (HX OF MULTIPLE CVAS) Hx Respiratory Disorders: No Hx Cardiac Disorders: Yes (HYPERCHOLESTEROL) Hx Psychiatric Problems: Yes (DEPRESSION) Hx Miscellaneous Medical Probl: Yes (multiple strokes/TIAs, pacemaker, DVT, afib) Hx Alcohol Use: No Hx Substance Use: No Hx Tobacco Use: No Physical Exam Vitals Vital Signs Date Time Temp Pulse Resp B/P Pulse Ox O2 Delivery O2 Flow Rate FiO2 12/21/16 21:42 97.7 74 20 124/62 98 Physical Exam Const: [] Head: Atraumatic Eyes: Normal Conjunctiva ENT: Normal External Ears, Nose and Mouth. Neck: Full range of motion..~ No meningismus. Resp: Clear to auscultation bilaterally Cardio: Regular rate and rhythm, no murmurs Abd: Soft, non tender, non distended. Normal bowel sounds Skin: No petechiae or rashes Back: No midline or flank tenderness Ext: No cyanosis, or edema Neur: Awake and alert Psych: Normal Mood and Affect Results 24 hrs Current Medications Medications (Trade) Dose Ordered Sig/Neelam Route PRN Reason Start Time Stop Time Status Last Admin Dose Admin Acetaminophen/ Hydrocodone Bitart ([place] (10/325)) 1 tab ONCE ONCE PO 12/21/16 23:30 12/21/16 23:31 DC 12/21/16 23:26 Procedures/MDM CT scan is negative for acute pathology. Patient's neurologic symptoms have stabilized while they have been evaluated in the department and are appropriate for outpatient work up. No e/o meningitis, intracranial bleed, seizure, stroke. Departure Diagnosis: Primary Impression: Headache Headache type: unspecified Headache chronicity pattern: acute headache Intractability: not intractable Qualified Code: R51 - Acute nonintractable headache, unspecified headache type Condition: Stable ROSEMARY CHAIDEZ December 22, 2016 00:45
[2016-12-22 01:32] VITALS: BP 115/66; PULSE 76; RESP 16; TEMP 97.7
== END 2016-12-22 01:09 | disposition home or self-care (01) ==
LOC: E/R 21:39
DX: R51 Headache (principal); R40.2142 Coma scale, eyes open, spontaneous, at arrival to emergency department; R40.2252 Coma scale, best verbal response, oriented, at arrival to emergency department; R40.2362 Coma scale, best motor response, obeys commands, at arrival to emergency department; Z95.0 Presence of cardiac pacemaker
CPT/HCPCS: 70450

== ENCOUNTER 2017-02-12 21:50 | Emergency (ER) | payer OTHER, MEDICAID ==
[~2017-02-12] VITALS: Wt 63.6 kg
[~2017-02-12 21:50] MED LIST changes: +TRAM50TA2 PO
--- NOTE | 2017-02-12 22:33 | ERD ---
ER Documentation Chief Complaint Date/Time DATE: 02/12/17 TIME: 22:32 Chief Complaint SOB UPON EXCERTION SENT FROM SNF BY RA HPI 66-year-old woman brought in by EMS from detention for cough and chest congestion. She is requesting intravenous morphine as she has a history of opioid dependence and chronic pain syndrome. She states she has been coughing for 3 days without fevers, no vomiting or diarrhea, no chest pain, no calf or leg swelling, no abdominal pain, no headache or blurry vision. ROS All systems reviewed and are negative except as per history of present illness. Medications Home Meds Active Scripts Albuterol Sulfate* (Proair HFA*) 8.5 Gm Hfa.aer.ad, 2 PUFF INH Q6H Y for WHEEZING AND SOB, #1 INHALER Prov:EDUIN NORRIS MD 02/13/17 Ibuprofen* (Ibuprofen*) 600 Mg Tablet, 600 MG PO Q8 for PAIN AND/OR INFLAMMATION , #30 TAB Prov:EDUIN NORRIS MD 02/13/17 Tramadol HCl (Tramadol HCl) 50 Mg Tablet, 50 MG PO Q4 Y for PAIN, #20 TAB Prov:ROSEMARY CHAIDEZ 12/22/16 Magnesium Oxide* (Magnesium Oxide*) 400 Mg Tablet, 400 MG PO BID for 60 Days, TAB Prov:BLAKE ACEVEDO 12/21/16 Apixaban* (Eliquis*) 5 Mg Tablet, 5 MG PO BID, #60 TAB Prov:BLAKE ACEVEDO 12/10/16 Reported Medications Mv,Ca,Min/Iron Fum/Fa/Lyco/Lut (COMPLETE MULTI TABLET) 1 Each Tablet, 1 EACH PO , TAB 11/20/16 [Iron] No Conflict Check, 1 TAB ORAL DAILY IRON GLYCINATE 11/20/16 Sertraline Hcl* (Sertraline Hcl*) 50 Mg Tablet, 50 MG PO DAILY, #30 TAB 11/20/16 Sennosides* (Senna Lax*) 8.6 Mg Tablet, 1 TAB PO BID Y for CONSTIPATION, TAB 11/20/16 Loperamide Hcl* (Loperamide Hcl*) 2 Mg Cap, 2 MG PO DAILY Y for DIARRHEA, CAP 11/20/16 Olanzapine* (Zyprexa*) 5 Mg Tablet, 5 MG PO QHS, #30 TAB 11/20/16 Atorvastatin* (Atorvastatin*) 40 Mg Tablet, 40 MG PO QHS, #30 TAB 11/20/16 Allergies Allergies: Coded Allergies: Penicillins (Verified Allergy, Unknown, 11/20/16) PMhx/Soc History of stroke with left-sided weakness post TPA, atrial fibrillation, pacemaker, hypertension, DVT, depression History of Surgery: Yes (Pacemaker, Hysterectomy, Gastric Byass ) Anesthesia Reaction: No Hx Neurological Disorder: Yes (HX OF MULTIPLE CVAS) Hx Respiratory Disorders: No Hx Cardiac Disorders: Yes (HYPERCHOLESTEROL) Hx Psychiatric Problems: Yes (DEPRESSION) Hx Miscellaneous Medical Probl: Yes (multiple strokes/TIAs, pacemaker, DVT, afib) Hx Alcohol Use: No Hx Substance Use: No Hx Tobacco Use: No FmHx Family History: No diabetes Physical Exam Vitals Vital Signs Date Time Temp Pulse Resp B/P Pulse Ox O2 Delivery O2 Flow Rate FiO2 02/13/17 01:45 62 20 100/62 100 Room Air 02/12/17 22:50 82 20 98 21 02/12/17 21:58 97.6 100 18 114/55 93 Physical Exam GENERAL: Well-developed, well-nourished, appears dehydrated, nontoxic HEENT: Dry mucous membranes, pink conjunctiva, no cervical spine tenderness or step-off deformities, no goiter, no jaundice or icterus, extraocular movements intact without pain. No submandibular induration, and no pharyngeal erythema NEURO: Alert and oriented 3, cranial nerves II through XII intact bilaterally, pupils equal round reactive to light, no focal deficits or facial asymmetry, sensation intact distally Strength 5/5 in upper and lower extremities bilaterally CARDIAC: Regular rate and rhythm, no murmurs rubs or gallops LUNGS: Rhonchorous breath sounds bilaterally, no wheezing or stridor ABDOMEN: Soft nontender, no guarding, no rigidity, no rebound, no psoas sign no obturator sign. Normoactive bowel sounds SKIN: Warm and dry to touch, no abrasions, contusions, or hematomas, no lacerations, no ecchymosis, no target lesions, and without ulcers EXTREMITIES: No clubbing cyanosis or edema, calves are bilaterally symmetrical, no Homans sign, no popliteal cord sign. Distal pulses equal and bilateral PSYCH: Normal affect without agitation or irritability Result Diagram: 7/15/17 2324 7/15/17 2324 Results 24 hrs Laboratory Tests Test 02/12/17 23:24 White Blood Count 4.610^3/ul Red Blood Count 3.7110^6/ul Hemoglobin 11.9g/dl Hematocrit 35.7% Mean Corpuscular Volume 96.2fl Mean Corpuscular Hemoglobin 32.1pg Mean Corpuscular Hemoglobin Concent 33.3g/dl Red Cell Distribution Width 13.0% Platelet Count 21855^3/UL Mean Platelet Volume 11.1fl Neutrophils % 57.5% Lymphocytes % 28.7% Monocytes % 9.0% Eosinophils % 4.2% Basophils % 0.4% Nucleated Red Blood Cells % 0.0/100WBC Neutrophils # 2.610^3/ul Lymphocytes # 1.310^3/ul Monocytes # 0.410^3/ul Eosinophils # 0.210^3/ul Basophils # 0.010^3/ul Nucleated Red Blood Cells # 0.010^3/ul Clumped Platelets RARE Sodium Level 145mmol/L Potassium Level 3.8mmol/L Chloride Level 106mmol/L Carbon Dioxide Level 27mmol/L Anion Gap 16 Blood Urea Nitrogen 12mg/dl Creatinine 0.62mg/dl Glucose Level 155mg/dl Calcium Level 8.4mg/dl Total Bilirubin 0.0mg/dl Direct Bilirubin 0.00mg/dl Indirect Bilirubin 0.0mg/dl Aspartate Amino Transf (AST/SGOT) 35IU/L Alanine Aminotransferase (ALT/SGPT) 37IU/L Alkaline Phosphatase 88IU/L Troponin I < 0.012ng/ml B-Type Natriuretic Peptide 290PG/ML Total Protein 5.8g/dl Albumin 3.6g/dl Globulin 2.20g/dl Albumin/Globulin Ratio 1.63 Lipase 18U/L Current Medications Medications (Trade) Dose Ordered Sig/Neelam Route PRN Reason Start Time Stop Time Status Last Admin Dose Admin Albuterol 10 mg 10 mg ONCE STAT INH 02/12/17 22:35 02/12/17 22:38 DC 02/12/17 22:49 Sodium Chloride (NS) 500 ml @ 500 mls/hr Q1H STAT IV 02/12/17 22:35 02/12/17 23:34 DC 02/12/17 23:20 Ketorolac Tromethamine (Toradol) 15 mg ONCE STAT IV 02/12/17 22:35 02/12/17 22:39 DC 02/13/17 01:17 Morphine Sulfate (morphine) 2 mg ONCE ONCE IV 02/13/17 02:30 02/13/17 02:31 DC 02/13/17 02:40 Procedures/MDM IV line was established patient was placed on camp cook rhythm strip revealed sinus rhythm at about 70 bpm with upright P and T waves. Patient was afebrile. EKG performed, read by me revealed a normal sinus rhythm at 67 bpm, left axis deviation, narrow QRS complex, no concerning ST elevations or depressions noted. One view chest x-ray performed, read by me revealed flattened hemidiaphragms, cardiomegaly, pacemaker, no acute infiltrates, no pneumothorax. CBC was unremarkable, electrolytes normal, liver function tests normal, troponin negative. BNP was low. I administered 500 cc normal saline intravenously for dehydration, Toradol 15 mg IV, and albuterol 10 mg via nebulizer although patient refused most of the albuterol treatment without giving any explanation as to why despite my questioning. For subjective opioid withdrawal I administered morphine 2 mg IV with improvement in symptoms. Patient's workup was unremarkable, she has no acute psychiatric issue and feels much better. Patient's vital signs are normal oxygen saturation is 98% on room air and lung sounds have improved. Patient will be discharged back to detention. Differential diagnoses considered, included but not limited to acute coronary syndrome, pulmonary embolism, aortic dissection, abdominal aortic aneurysm, sepsis, stroke, meningitis, encephalitis, pneumonia, appendicitis, cholecystitis , bowel obstruction, pyelonephritis, nephrolithiasis, cystitis, as well as metabolic, hematologic, and electrolyte abnormalities. As well as abscess, cellulitis, fractures, and dislocations. Patient feels much better at this time, and vital signs are normal, symptoms have improved. I did give strict instructions to return to the ED if symptoms continue or worsen, patient will otherwise follow-up with primary care physician. Patient understood instructions and agreed to plan. Disclaimer: Inadvertent spelling and grammatical errors are likely due to EHR/ dictation software use and do not reflect on the overall quality of patient care. Also, please note that the electronic time recorded on this note does not necessarily reflect the actual time of the patient encounter. Departure Diagnosis: Primary Impression: Acute bronchitis Bronchitis organism: unspecified organism Qualified Code: J20.9 - Acute bronchitis, unspecified organism Additional Impressions: Dehydration Opioid dependence Substance use status: uncomplicated Qualified Code: F11.20 - Uncomplicated opioid dependence Chronic pain syndrome Condition: Good EDUIN NORRIS MD Feb 12, 2017 22:33
[2017-02-12] MEDS ORDERED: ALBUTEROL 0.5% (NEB) 2.5 MG/0.5 ML AMP INH STA (22:35)
[2017-02-12] MEDS ORDERED: SOD CHLORIDE 0.9% 500 ML IV STA (22:35)
[2017-02-12] MEDS: KETOROLAC 15 MG INJ IV STA (23:21)
[2017-02-12 23:28] LABS: ADD SCAN DIFF NO
[2017-02-12 23:32] LABS: BASOPHILS % 0.4 % (0.0-2.0); EOSINOPHILS # 0.2 10^3/ul (0.0-0.5); EOSINOPHILS % 4.2 % (0.0-7.0); HEMATOCRIT 35.7 % (37.0-47.0); HEMOGLOBIN 11.9 g/dl (12.0-16.0); LYMPHOCYTES # 1.3 10^3/ul (0.8-2.9); LYMPHOCYTES % 28.7 % (15.0-51.0); MEAN CORPUSCULAR HEMOGLOBIN 32.1 pg (29.0-33.0); MEAN CORPUSCULAR HGB CONC 33.3 g/dl (32.0-37.0); MEAN CORPUSCULAR VOLUME 96.2 fl (82.0-101.0); MEAN PLATELET VOLUME 11.1 fl (7.4-10.4); MONOCYTE # 0.4 10^3/ul (0.3-0.9); NEUTROPHIL # 2.6 10^3/ul (1.6-7.5); NEUTROPHILS % 57.5 % (39.0-77.0); PLATELET COUNT 116 10^3/UL (140-415); RED BLOOD COUNT 3.71 10^6/ul (4.20-5.40); WHITE BLOOD COUNT 4.6 10^3/ul (4.8-10.8)
[2017-02-13 00:02] LABS: ALANINE AMINOTRANSFERASE 37 IU/L (13-69); ALBUMIN 3.6 g/dl (3.3-4.9); ALBUMIN/GLOBULIN RATIO 1.63; ALKALINE PHOSPHATASE 88 IU/L (42-121); ANION GAP 16 (8-16); ASPARTATE AMINO TRANSFERASE 35 IU/L (15-46); BLOOD UREA NITROGEN 12 mg/dl (7-20); CALCIUM 8.4 mg/dl (8.4-10.2); CARBON DIOXIDE 27 mmol/L (21-31); CHLORIDE 106 mmol/L (97-110); CREATININE 0.62 mg/dl (0.44-1.00); GLUCOSE 155 mg/dl (70-220); POTASSIUM 3.8 mmol/L (3.5-5.1); SODIUM 145 mmol/L (135-144); TOTAL PROTEIN 5.8 g/dl (6.1-8.1)
--- NOTE | 2017-02-13 00:09 | RADRPT ---
PROCEDURE: XR Chest. CLINICAL INDICATION: Chest pain. Abdominal pain TECHNIQUE: Portable AP view of the chest was obtained. COMPARISON: 12/20/2016 FINDINGS: The cardiomediastinal silhouette is mildly enlarged, a right subclavian approach dual chamber cardia c pacemaker is again noted. The lungs are clear. There is no evidence for pleural effusion, pneumo thorax or pulmonary vascular congestion. The osseous structures are intact with no evidence for acu te abnormality. Postoperative changes of the abdomen are again noted. The visualized bowel gas is n onspecific and unchanged RPTAT:HJJR IMPRESSION: Stable cardiac silhouette enlargement and cardiac pacemaker without evidence for acute intrathoracic pathology. Physician Abdias Date Time Electronically viewed and signed by Lan Slade Physician on 02/13/2017 00:08 /
[2017-02-13 00:11] LABS: B-TYPE NATRIURETIC PEPTIDE 290 PG/ML (0-125)
[2017-02-13 00:12] LABS: TROPONIN-I < 0.012 ng/ml (0.00-0.12)
[2017-02-13] MEDS ORDERED: ALBU8.5H3 INH (00:32)
[2017-02-13] MEDS ORDERED: IBUP-1542 PO (00:32)
[2017-02-13] MEDS: KETOROLAC 15 MG INJ IV STA (01:17)
[2017-02-13 01:34] LABS: PLATELETS CLUMPS RARE
[2017-02-13 01:45] VITALS: BP 100/62; PULSE 62; RESP 20
[2017-02-13] MEDS ORDERED: morphine 2 MG INJ IV ONE (02:30)
== END 2017-02-13 05:10 | disposition home or self-care (01) ==
LOC: E/R 21:50
DX: J20.9 Acute bronchitis, unspecified (principal); E86.0 Dehydration; F11.20 Opioid dependence, uncomplicated; G89.4 Chronic pain syndrome; I10 Essential (primary) hypertension; Z95.0 Presence of cardiac pacemaker
CPT/HCPCS: 36415; 71010; 80053; 83690; 83880; 84484; 85025; 93005; 94644; 96374; 96375; 99285; J1885; J2270; J7040

== ENCOUNTER 2017-03-26 22:36 | Observation (INO) | payer OTHER, MEDICAID ==
[~2017-03-26] VITALS: Ht 165.1 cm; Wt 65.9 kg
[~2017-03-26 22:36] MED LIST changes: +ALBU8.5H3 INH; +IBUP-1542 PO
[2017-03-26] MEDS ORDERED: ASPIRIN 81 MG TAB PO STA (22:51)
--- NOTE | 2017-03-26 23:23 | RADRPT ---
PROCEDURE: Portable chest x-ray. CLINICAL INDICATION: 66 years of age, ifemale. Chest pain. TECHNIQUE: Portable AP view of the chest. COMPARISON: February 12, 2017 FINDINGS: There is a dual lead right subclavian pacemaker with electrodes over the right atrium and right vent ricle that is similar to prior exam. Atherosclerosis aorta. Normal heart size. Decreased lung volumes with vascular crowding versus mild edema. Negative for focal lung consolidat ion. Negative for pleural effusion or pneumothorax. No acute bony abnormality. Surgical clips in the upper abdomen. IMPRESSION: Decreased lung volumes with vascular crowding versus mild edema. Dual lead pacemaker in good position. RPTAT: HCTS Physician Miri Date Time Electronically viewed and signed by Physician Miri on 03/26/2017 23:22 /
[2017-03-26] MEDS ORDERED: ONDANSETRON 4 MG INJ IV STA (23:25)
[2017-03-26] MEDS ORDERED: morphine 4 MG/ML VIAL IV STA (23:25)
[2017-03-26] MEDS ORDERED: LORAZEPAM 2 MG INJ IV ONE (23:30)
[2017-03-26] MEDS ORDERED: SOD CHLORIDE 0.9% 1,000 ML IV STA (23:44)
[2017-03-27] VITALS (11 sets, daily range): BP systolic 94–110; BP diastolic 50–68; PULSE 60–66; RESP 16–18; Ht 165.1 cm; Wt 65.9 kg
[2017-03-27 00:15] LABS: BASOPHILS % 0.5 % (0.0-2.0); EOSINOPHILS # 0.1 10^3/ul (0.0-0.5); EOSINOPHILS % 1.7 % (0.0-7.0); HEMATOCRIT 35.8 % (37.0-47.0); LYMPHOCYTES # 1.9 10^3/ul (0.8-2.9); LYMPHOCYTES % 29.8 % (15.0-51.0); MEAN CORPUSCULAR HEMOGLOBIN 31.6 pg (29.0-33.0); MEAN CORPUSCULAR HGB CONC 33.5 g/dl (32.0-37.0); MEAN CORPUSCULAR VOLUME 94.2 fl (82.0-101.0); MEAN PLATELET VOLUME 10.6 fl (7.4-10.4); MONOCYTE # 0.5 10^3/ul (0.3-0.9); NEUTROPHILS % 59.8 % (39.0-77.0); PLATELET COUNT 181 10^3/UL (140-415); RED CELL DISTRIBUTION WIDTH 13.5 % (11.5-14.5); WHITE BLOOD COUNT 6.4 10^3/ul (4.8-10.8)
[2017-03-27 00:17] LABS: ANION GAP 15 (8-16); BLOOD UREA NITROGEN 21 mg/dl (7-20); CALCIUM 9.3 mg/dl (8.4-10.2); CARBON DIOXIDE 28 mmol/L (21-31); CHLORIDE 101 mmol/L (97-110); CREATININE 0.68 mg/dl (0.44-1.00); GLUCOSE 90 mg/dl (70-220); POTASSIUM 3.9 mmol/L (3.5-5.1); SODIUM 140 mmol/L (135-144)
[2017-03-27 00:31] LABS: TROPONIN-I < 0.012 ng/ml (0.00-0.12)
[2017-03-27] MEDS ORDERED: ACETAMINOPHEN 325 MG TAB PO PRN (01:00)
[2017-03-27] MEDS ORDERED: ONDANSETRON 4 MG INJ IV PRN (01:00)
[2017-03-27] MEDS ORDERED: NITROGLYCERIN (SL) 0.4 MG TAB SL PRN (01:30)
--- NOTE | 2017-03-27 01:34 | ERA ---
ER Documentation Chief Complaint Date/Time DATE: 03/27/17 TIME: 01:32 Chief Complaint CP, non radiation, started 1 hr ago HPI Patient is a 66-year-old female with stroke presents with chest pain. The symptoms started 1 hour prior. The pain is been constant and is still present. The patient was brought in by ambulance. The chest pain is midsternal without radiation. The patient was given 1 nitroglycerin at the nursing facility which dropped her blood pressure to 100. The patient does not currently have a primary doctor. ROS All systems reviewed and are negative except as per history of present illness. Medications Home Meds Active Scripts Albuterol Sulfate* (Proair HFA*) 8.5 Gm Hfa.aer.ad, 2 PUFF INH Q6H Y for WHEEZING AND SOB, #1 INHALER Prov:EDUIN NORRIS MD 02/13/17 Ibuprofen* (Ibuprofen*) 600 Mg Tablet, 600 MG PO Q8 for PAIN AND/OR INFLAMMATION , #30 TAB Prov:EDUIN NORRIS MD 02/13/17 Tramadol HCl (Tramadol HCl) 50 Mg Tablet, 50 MG PO Q4 Y for PAIN, #20 TAB Prov:ROSEMARY CHAIDEZ 12/22/16 Magnesium Oxide* (Magnesium Oxide*) 400 Mg Tablet, 400 MG PO BID for 60 Days, TAB Prov:BLAKE ACEVEDO 12/21/16 Apixaban* (Eliquis*) 5 Mg Tablet, 5 MG PO BID, #60 TAB Prov:BLAKE ACEVEDO 12/10/16 Reported Medications Mv,Ca,Min/Iron Fum/Fa/Lyco/Lut (COMPLETE MULTI TABLET) 1 Each Tablet, 1 EACH PO , TAB 11/20/16 [Iron] No Conflict Check, 1 TAB ORAL DAILY IRON GLYCINATE 11/20/16 Sertraline Hcl* (Sertraline Hcl*) 50 Mg Tablet, 50 MG PO DAILY, #30 TAB 11/20/16 Sennosides* (Senna Lax*) 8.6 Mg Tablet, 1 TAB PO BID Y for CONSTIPATION, TAB 11/20/16 Loperamide Hcl* (Loperamide Hcl*) 2 Mg Cap, 2 MG PO DAILY Y for DIARRHEA, CAP 11/20/16 Olanzapine* (Zyprexa*) 5 Mg Tablet, 5 MG PO QHS, #30 TAB 11/20/16 Atorvastatin* (Atorvastatin*) 40 Mg Tablet, 40 MG PO QHS, #30 TAB 11/20/16 Allergies Allergies: Coded Allergies: Penicillins (Verified Allergy, Unknown, 11/20/16) PMhx/Soc History of Surgery: Yes (Pacemaker, Hysterectomy, Gastric Byass ) Anesthesia Reaction: No Hx Neurological Disorder: Yes (HX OF MULTIPLE CVAS) Hx Respiratory Disorders: No Hx Cardiac Disorders: Yes (HYPERCHOLESTEROL) Hx Psychiatric Problems: Yes (DEPRESSION) Hx Miscellaneous Medical Probl: Yes (multiple strokes/TIAs, pacemaker, DVT, afib) Hx Alcohol Use: No Hx Substance Use: No Hx Tobacco Use: No Smoking Status: Never smoker FmHx Family History: coronary disease Physical Exam Vitals Vital Signs Date Time Temp Pulse Resp B/P Pulse Ox O2 Delivery O2 Flow Rate FiO2 03/27/17 00:02 60 16 109/56 100 Room Air 03/26/17 22:43 99.1 61 20 105/89 99 Physical Exam Const: No acute distress Head: Atraumatic Eyes: Normal Conjunctiva ENT: Normal External Ears, Nose and Mouth. Neck: Full range of motion..~ No meningismus. Resp: Clear to auscultation bilaterally Cardio: Regular rate and rhythm, no murmurs Abd: Soft, non tender, non distended. Normal bowel sounds Skin: No petechiae or rashes Back: No midline or flank tenderness Ext: No cyanosis, or edema Neur: Awake and alert Psych: Normal Mood and Affect Result Diagram: 03/26/17224403/26/172244 Results 24 hrs Laboratory Tests Test 03/26/17 22:45 White Blood Count 6.410^3/ul Red Blood Count 3.8010^6/ul Hemoglobin 12.0g/dl Hematocrit 35.8% Mean Corpuscular Volume 94.2fl Mean Corpuscular Hemoglobin 31.6pg Mean Corpuscular Hemoglobin Concent 33.5g/dl Red Cell Distribution Width 13.5% Platelet Count 92804^3/UL Mean Platelet Volume 10.6fl Neutrophils % 59.8% Lymphocytes % 29.8% Monocytes % 8.0% Eosinophils % 1.7% Basophils % 0.5% Nucleated Red Blood Cells % 0.0/100WBC Neutrophils # (Manual) 3.810^3/ul Lymphocytes # 1.910^3/ul Monocytes # 0.510^3/ul Eosinophils # 0.110^3/ul Basophils # 0.010^3/ul Nucleated Red Blood Cells # 0.010^3/ul Sodium Level 140mmol/L Potassium Level 3.9mmol/L Chloride Level 101mmol/L Carbon Dioxide Level 28mmol/L Anion Gap 15 Blood Urea Nitrogen 21mg/dl Creatinine 0.68mg/dl Glucose Level 90mg/dl Calcium Level 9.3mg/dl Troponin I < 0.012ng/ml Current Medications Medications (Trade) Dose Ordered Sig/Neelam Route PRN Reason Start Time Stop Time Status Last Admin Dose Admin Aspirin (Aspirin) 162 mg ONCE STAT PO 03/26/17 22:51 03/26/17 22:53 DC Morphine Sulfate (morphine) 4 mg ONCE STAT IV 03/26/17 23:25 03/26/17 23:27 DC 03/26/17 23:55 Ondansetron HCl (Zofran Inj) 4 mg ONCE STAT IV 03/26/17 23:25 03/26/17 23:27 DC 03/26/17 23:55 Lorazepam 0.5 mg 0.5 mg ONCE ONCE IV 03/26/17 23:30 03/26/17 23:31 DC 03/26/17 23:55 Sodium Chloride (NS) 1,000 ml @ 1,000 mls/hr Q1H STAT IV 03/26/17 23:44 03/27/17 00:43 DC 03/26/17 23:55 Ondansetron HCl (Zofran Inj) 4 mg ER BRIDGE PRN IV NAUSEA AND/OR VOMITING 03/27/17 01:00 03/28/17 00:59 Acetaminophen (Tylenol Tab) 650 mg ER BRIDGE PRN PO MILD PAIN/FEVER 03/27/17 01:00 03/28/17 00:59 Clopidogrel Bisulfate (plaVIX) 75 mg DAILY PO 03/28/17 09:00 Nitroglycerin (Nitroglycerin (Sl Tab) 0.4 Mg) 1 tab Q5M PRN SL CHEST PAIN 03/27/17 01:30 Morphine Sulfate (morphine) 2 mg Q2H PRN IV PAIN LEVEL 4-6 03/27/17 01:30 Procedures/MDM EKG read by me: Rate/Rhythm: Atrial paced rhythm at a rate of 60 intervals: Normal Impression: Atrial paced rhythm without ischemia Chest x-ray shows no obvious pneumonia or pneumothorax per radiology. Patient is a 66-year-old female with cardiac risk factors who presents with chest pain. I am concerned for possible acute coronary syndrome. I doubt pneumonia, pneumothorax, pulmonary embolism, or aortic dissection. The patient has scan insurance and therefore I will admit the patient to Dr. Hernandez to a telemetry observation bed. Departure Diagnosis: Primary Impression: Chest pain Qualified Code: R07.9 - Chest pain, unspecified type Condition: ARELIS Leo MD Mar 27, 2017 01:34
[2017-03-27] MEDS ORDERED: morphine 2 MG INJ IV PRN (04:30)
[2017-03-27] MEDS: morphine 2 MG INJ IV PRN ×3 (04:31→12:57)
[2017-03-27] MEDS: LORAZEPAM 1 MG TAB PO PRN ×2 (06:02→22:40)
[2017-03-27 09:23] LABS: CREATINE KINASE 50 IU/L (23-200)
[2017-03-27 09:28] LABS: CK-MB 1.36 ng/ml (0.0-2.4)
[2017-03-27 09:29] LABS: D-DIMER 917.1 ng/ml (<460)
[2017-03-27 09:31] LABS: TROPONIN-I < 0.012 ng/ml (0.00-0.12)
[2017-03-27 11:11] LABS: CREATINE KINASE 52 IU/L (23-200)
[2017-03-27 11:17] LABS: CK-MB 1.02 ng/ml (0.0-2.4)
[2017-03-27 11:28] LABS: TROPONIN-I < 0.012 ng/ml (0.00-0.12)
--- NOTE | 2017-03-27 12:46 | HP ---
Date/Time of Note Date/Time of Note DATE: 03/27/17 TIME: 12:38 Assessment/Plan VTE Prophylaxis VTE Prophylaxis Intervention: LMWH Lines/Catheters IV C[facility]ter Type [facility] Saline Lock Assessment/Plan Assessment/Plan [facility] 1. 66-year-old woman with acute onset low sternal chest pain yesterday. EKG without acute ischemic changes. Pain persistent through the night. Troponins negative. Her pain is reproduced by palpation of the right lower chondrosternal joints. Appears to represent an acute costochondritis. Fasting lipids checked recently were within normal limits. D-dimer mildly elevated, but no calf tenderness or swelling and low probability of pulmonary embolus in light of the musculoskeletal chest pain finding. 2. Sub-acute cerebrovascular accident three months ago, with a history of multiple previous strokes and transient ischemic attacks. 3. History of atrial fibrillation, with pacemaker in place. 4. History of depression. 5. History of deep venous thrombosis. * Placed under telemetry observation * Naproxen 375mg PO * Serial troponins as noted above. * No indication for stress testing for now. * Follow-up with cardiology, in light of the complex history. * Full-code * Lovenox given for DVT prophlaxis, but * Famotidine for GI protection Bravo Hernandez MD PhD [phone] HPI/ROS Admit Date/Time Admit Date/Time Mar 27, 2017 at 01:01 Hx of Present Illness CHIEF COMPLAINT: Chest pain. HISTORY OF PRESENT ILLNESS: Ms. Perez is a 66-year-old patient of Dr. Mariah Lopez with a history of multiple stroke/TIA presentations, atrial fibrillation , pacemaker, depression, dyslipidemia, and previous DVT, who presented to the emergency department complaining of low sternal chest pain that began about an hour before she arrived. No radiation, nausea, lightheadedness, or diaphoresis. Paramedics transported her to the [facility] ER. She was hospitalized three months ago with left-sided weakness, having been admitted 10 days earlier with similar symptoms and treated with TPA. CT of the brain showed a large chronic right MCA territory infarct, a small chronic left parietal lobe infarct, and a chronic lacunar infarct in the left basal ganglia. Carotid Doppler ultrasound and CT angiogram of the head and neck did not show any significant stenosis or occlusion. Pacemaker interrogation then showed normal function. She had had brief episodes of atrial fibrillation about six months ago. PAST SURGICAL HISTORY: Hysterectomy and pacemaker placement. SOCIAL HISTORY: No use of tobacco, alcohol or illicit drug use. ALLERGIES: 1. PENICILLIN. 2. POSSIBLE ASPIRIN ALLERGY WELL. ROS No headache, visual change, dyspnea or nausea. Little appetite. PMH/Family/Social Past Medical History Medical History: hypertension, other (atrial fibrillation, pacemaker) Social History Smoking Status: Never smoker Exam/Review of Systems Vital Signs Vitals Vital Signs Date Time Temp Pulse Resp B/P Pulse Ox O2 Delivery O2 Flow Rate FiO2 03/27/17 12:07 97.8 60 18 98/50 98 03/27/17 05:00 Room Air Intake and Output 03/26/17 03/26/17 03/27/17 15:00 23:00 07:00 Intake Total 250 ml Balance 250 ml Exam Exam GENERAL: MIldly uncomfortable-appearing, but In no respiratory distress on room air. HEENT: Pupils were equal, round, and reactive to light. EOMI. Moist oral mucosa. No JVD. CARDIOVASCULAR: Regular rhythm, normal rate. No murmur. CHEST: Clear bilaterally. Severe focal tenderness at the right lower sternal border, reproducing her pain. ABDOMEN: Soft, nontender, nondistended. Positive bowel sounds. EXTREMITIES: Alert, oriented, cranial nerves intact, motor 5/5 bilaterally. Toes downgoing. SKIN: No rash. Labs Result Diagram: 03/26/17224403/26/172244 Medications Medications Current Medications Clopidogrel Bisulfate (plaVIX) 75 mg DAILY PO ; Start 03/28/17 at 09:00 Nitroglycerin (Nitroglycerin (Sl Tab) 0.4 Mg) 1 tab Q5M PRN SL CHEST PAIN; Start 03/27/17 at 01:30 Morphine Sulfate (morphine) 2 mg Q2H PRN IV PAIN LEVEL 4-6 Last administered on 03/27/17 10:18; Admin Dose 2 MG; Start 03/27/17 at 01:30 Lorazepam (Ativan) 1 mg Q4 PRN PO ANXIETY Last administered on 03/27/17 06:02 ; Admin Dose 1 MG; Start 03/27/17 at 04:30 ISRAEL HERNANDEZ M.D. Mar 27, 2017 12:46 Medications Current Medications Clopidogrel Bisulfate (plaVIX) 75 mg DAILY PO ; Start 03/28/17 at 09:00 Nitroglycerin (Nitroglycerin (Sl Tab) 0.4 Mg) 1 tab Q5M PRN SL CHEST PAIN; Start 03/27/17 at 01:30 Morphine Sulfate (morphine) 2 mg Q2H PRN IV PAIN LEVEL 4-6 Last administered on 03/27/17 10:18; Admin Dose 2 MG; Start 03/27/17 at 01:30 Lorazepam (Ativan) 1 mg Q4 PRN PO ANXIETY Last administered on 03/27/17 06:02 ; Admin Dose 1 MG; Start 03/27/17 at 04:30 ISRAEL HERNANDEZ M.D. Mar 27, 2017 12:46
[2017-03-27] MEDS ORDERED: KETOROLAC 30 MG INJ IV STA (13:21)
[2017-03-27] MEDS ORDERED: LOPERAMIDE 2 MG CAP PO PRN (13:30)
[2017-03-27] MEDS ORDERED: traMADol 50 MG TAB PO PRN (13:30)
[2017-03-27] MEDS ORDERED: SENNA TAB PO PRN (13:30)
[2017-03-27] MEDS ORDERED: ALBUTEROL 18 GM INHALER INH PRN (14:00)
[2017-03-27] MEDS: FAMOTIDINE 20 MG TAB PO SCH ×2 (14:42→20:48)
[2017-03-27] MEDS: APIXABAN 5 MG TABLET PO SCH ×2 (14:42→20:49)
[2017-03-27] MEDS: PRENATAL VITAMIN PO SCH (17:04)
[2017-03-27] MEDS: MAGNESIUM OXIDE 400 MG TAB PO SCH ×2 (17:05→20:49)
[2017-03-27] MEDS: SERTRALINE 50 MG TAB PO SCH (17:05)
--- NOTE | 2017-03-27 18:36 | PDOCDIS ---
Discharge Instructions DIAGNOSIS Discharge Diagnosis Costochondritis/ musculoskeletal chest pain CONDITION Patient Condition: Good HOME CARE INSTRUCTIONS: Diet Instructions: Low Fat /Cholesterol ACTIVITY: Activity Restrictions: Slowly Increase Activity FOLLOW UP/APPOINTMENTS Follow-up Plan [facility] and PCP in the coming week ISRAEL MCKEON M.D. Mar 27, 2017 18:36
[2017-03-27] MEDS ORDERED: DICL100G37 TOP (18:39)
[2017-03-27] MEDS ORDERED: TEMA15CA6 PO (18:40)
[2017-03-27] MEDS ORDERED: KETOROLAC 15 MG INJ IV STA (18:41)
[2017-03-27] MEDS ORDERED: ATORVASTATIN 40 MG TAB PO SCH (21:00)
[2017-03-27] MEDS ORDERED: OLANZAPINE 5 MG TAB PO SCH (21:00)
[2017-03-28] VITALS (8 sets, daily range): BP systolic 94–166; BP diastolic 46–66; PULSE 59–78; RESP 17–20
[2017-03-28] MEDS ORDERED: CLOPIDOGREL 75 MG TAB PO SCH (09:00)
[2017-03-28] MEDS: APIXABAN 5 MG TABLET PO SCH (09:07)
[2017-03-28] MEDS: PRENATAL VITAMIN PO SCH (09:07)
[2017-03-28] MEDS: SERTRALINE 50 MG TAB PO SCH (09:07)
[2017-03-28] MEDS: FAMOTIDINE 20 MG TAB PO SCH (09:07)
[2017-03-28] MEDS: MAGNESIUM OXIDE 400 MG TAB PO SCH (09:09)
[2017-03-28] MEDS: morphine 2 MG INJ IV PRN ×2 (09:16→12:59)
[2017-03-29] MEDS ORDERED: DEXT1CAP PO (06:09)
[2017-03-29] MEDS ORDERED: POTA10TA37 PO (06:09)
[2017-03-29] MEDS ORDERED: OLAN5TAB5 PO (06:09)
[2017-03-29] MEDS ORDERED: NAPR-260 PO (06:46)
== END 2017-03-28 13:16 | disposition home or self-care (01) ==
LOC: E/R 22:36 → MS4 03-27 01:01
PROVIDERS: ADMIT Internal Medicine; ATTEND Internal Medicine
DX: R07.9 Chest pain, unspecified (principal); E78.00 Pure hypercholesterolemia, unspecified; I48.91 Unspecified atrial fibrillation; F32.9 Major depressive disorder, single episode, unspecified; Z86.718 Personal history of other venous thrombosis and embolism; Z95.0 Presence of cardiac pacemaker; Z88.0 Allergy status to penicillin; Z86.73 Personal history of transient ischemic attack (TIA), and cerebral infarction without residual deficits; Z90.710 Acquired absence of both cervix and uterus; Z82.49 Family history of ischemic heart disease and other diseases of the circulatory system
CPT/HCPCS: 36415; 71010; 80048; 82550; 82553; 84484; 85025; 85378; 93005; 96374; 96375; 99285; G0378; J1885; J2060; J2270; J2405; J7030

== ENCOUNTER 2017-03-29 03:21 | Emergency (ER) | payer OTHER, MEDICAID ==
[~2017-03-29] VITALS: Ht 162.6 cm; Wt 79.0 kg
[~2017-03-29 03:21] MED LIST changes: +DICL100G37 TOP; -IBUP-1542 PO; -IRON ORAL; +TEMA15CA6 PO
[2017-03-29 03:29] VITALS: Ht 162.6 cm; Wt 79.0 kg
[2017-03-29] MEDS ORDERED: ONDANSETRON 4 MG INJ IV STA (03:32)
[2017-03-29] MEDS ORDERED: SOD CHLORIDE 0.9% 500 ML IV STA (03:32)
[2017-03-29] MEDS ORDERED: morphine 4 MG/ML VIAL IV STA (03:32)
--- NOTE | 2017-03-29 05:13 | RADRPT ---
PROCEDURE: CHEST - 1 VIEW CLINICAL INDICATION: 66-year-old female with chest pain. TECHNIQUE: AP semi-upright views of the chest was obtained portably on two radiographs. The sherine ges were reviewed on a PACS workstation. COMPARISON: None. FINDINGS: There is a right-sided dual chamber pacemaker. The cardiomediastinal silhouette is mildly enlarged. The thoracic aortic arch is calcified. There is a shallow inspiration. There is mild bibasilar s ubsegmental atelectasis. There is no evidence for focal consolidation. There is no evidence for co ngestive heart failure. There is no evidence for pneumothorax. Surgical clips identified within the upper abdomen with a tubular structure presumably from prior lap band procedure. The osseous structu res are intact. IMPRESSION: 1. Right-sided dual chamber pacemaker. 2. Calcified thoracic aorta. 3. Shallow inspiration. 4. Mild bibasilar subsegmental atelectasis. .Ten Mcnulty MD, Date Time Electronically viewed and signed by .Ten Mcnulty MD, on 03/29/2017 05:13 .M/
[2017-03-29 06:05] LABS: BASOPHIL # 0.1 10^3/ul (0.0-0.1); BASOPHILS % 0.9 % (0.0-2.0); EOSINOPHILS # 0.2 10^3/ul (0.0-0.5); EOSINOPHILS % 3.5 % (0.0-7.0); HEMATOCRIT 31.4 % (37.0-47.0); HEMOGLOBIN 10.5 g/dl (12.0-16.0); LYMPHOCYTES # 1.5 10^3/ul (0.8-2.9); LYMPHOCYTES % 27.8 % (15.0-51.0); MEAN CORPUSCULAR HEMOGLOBIN 31.5 pg (29.0-33.0); MEAN CORPUSCULAR HGB CONC 33.4 g/dl (32.0-37.0); MEAN CORPUSCULAR VOLUME 94.3 fl (82.0-101.0); MEAN PLATELET VOLUME 10.2 fl (7.4-10.4); MONOCYTE # 0.5 10^3/ul (0.3-0.9); MONOCYTES % 8.3 % (0.0-11.0); NEUTROPHILS % 59.3 % (39.0-77.0); PLATELET COUNT 157 10^3/UL (140-415); RED BLOOD COUNT 3.33 10^6/ul (4.20-5.40); RED CELL DISTRIBUTION WIDTH 13.4 % (11.5-14.5); WHITE BLOOD COUNT 5.4 10^3/ul (4.8-10.8)
[2017-03-29] MEDS ORDERED: DEXT1CAP PO (06:09)
[2017-03-29] MEDS ORDERED: POTA10TA37 PO (06:09)
[2017-03-29] MEDS ORDERED: OLAN5TAB5 PO (06:09)
[2017-03-29 06:25] LABS: ALANINE AMINOTRANSFERASE 27 IU/L (13-69); ALBUMIN 3.2 g/dl (3.3-4.9); ALKALINE PHOSPHATASE 84 IU/L (42-121); ANION GAP 14 (8-16); ASPARTATE AMINO TRANSFERASE 21 IU/L (15-46); BLOOD UREA NITROGEN 24 mg/dl (7-20); CALCIUM 8.9 mg/dl (8.4-10.2); CARBON DIOXIDE 28 mmol/L (21-31); CHLORIDE 103 mmol/L (97-110); CREATININE 0.65 mg/dl (0.44-1.00); GLUCOSE 116 mg/dl (70-220); POTASSIUM 4.2 mmol/L (3.5-5.1); SODIUM 141 mmol/L (135-144); TOTAL PROTEIN 6.1 g/dl (6.1-8.1)
[2017-03-29 06:32] LABS: B-TYPE NATRIURETIC PEPTIDE 297 PG/ML (0-125)
[2017-03-29 06:39] LABS: TROPONIN-I < 0.012 ng/ml (0.00-0.12)
[2017-03-29] MEDS ORDERED: KETOROLAC 15 MG INJ IV STA (06:44)
[2017-03-29] MEDS ORDERED: NAPR-260 PO (06:46)
--- NOTE | 2017-03-29 06:51 | ERD ---
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 She was recently admitted for the symptoms and a cardiac workup and serial troponins were negative. Patient states the pain is nonexertional nonradiating, she has had no shortness of breath, no cough, no fevers or chills, no vomiting or diarrhea ROS All systems reviewed and are negative except as per history of present illness. Medications Home Meds Active Scripts Naproxen* (Naprosyn*) 500 Mg Tablet, 500 MG PO BID Y for PAIN AND/OR INFLAMMATION, #30 TAB Prov:EDUIN NORRIS MD 03/29/17 Temazepam* (Restoril*) 15 Mg Capsule, 15 MG PO HS Y for INSOMNIA for 30 Days, CAP Prov:ISRAEL MCKEON M.D. 03/27/17 Diclofenac Sodium* (Voltaren* Gel) 1% -100 Gm Gel, 2 GM TOP TID Y for PAIN for 30 Days, #1 TUB Prov:ISRAEL MCKEON M.D. 03/27/17 Tramadol HCl (Tramadol HCl) 50 Mg Tablet, 50 MG PO Q4 Y for PAIN, #20 TAB Prov:ROSEMARY CHAIDEZ 12/22/16 Apixaban* (Eliquis*) 5 Mg Tablet, 5 MG PO BID, #60 TAB Prov:BLAKE ACEVEDO 12/10/16 Reported Medications Dextromethorphan Hbr/Quinidine (NUEDEXTA 20-10 MG CAPSULE) 1 Each Capsule, 1 EACH PO, CAP 03/29/17 Olanzapine* (Zyprexa*) 5 Mg Tablet, 5 MG PO DAILY, #30 TAB 03/29/17 Potassium Chloride* (K-Dur*) 10 Meq Tab.prt.sr, 10 MEQ PO DAILY, TAB 03/29/17 Mv,Ca,Min/Iron Fum/Fa/Lyco/Lut (COMPLETE MULTI TABLET) 1 Each Tablet, 1 EACH PO , TAB 11/20/16 Sertraline Hcl* (Sertraline Hcl*) 50 Mg Tablet, 50 MG PO DAILY, #30 TAB 11/20/16 Sennosides* (Senna Lax*) 8.6 Mg Tablet, 1 TAB PO BID Y for CONSTIPATION, TAB 11/20/16 Atorvastatin* (Atorvastatin*) 40 Mg Tablet, 40 MG PO QHS, #30 TAB 11/20/16 Discontinued Reported Medications Loperamide Hcl* (Loperamide Hcl*) 2 Mg Cap, 2 MG PO DAILY Y for DIARRHEA, CAP 11/20/16 Olanzapine* (Zyprexa*) 5 Mg Tablet, 5 MG PO QHS, #30 TAB 11/20/16 [Iron] No Conflict Check, 1 TAB ORAL DAILY IRON GLYCINATE 11/20/16 Discontinued Scripts Albuterol Sulfate* (Proair HFA*) 8.5 Gm Hfa.aer.ad, 2 PUFF INH Q6H Y for WHEEZING AND SOB, #1 INHALER Prov:EDUIN NORRIS MD 02/13/17 Magnesium Oxide* (Magnesium Oxide*) 400 Mg Tablet, 400 MG PO BID for 60 Days, TAB Prov:BLAKE ACEVEDO 12/21/16 Ibuprofen* (Ibuprofen*) 600 Mg Tablet, 600 MG PO Q8 for PAIN AND/OR INFLAMMATION , #30 TAB Prov:EDUIN NORRIS MD 02/13/17 Allergies Allergies: Coded Allergies: Penicillins (Unverified Allergy, Unknown, 03/29/17) adhesive tape (Unverified Allergy, Unknown, 03/29/17) aspirin (Unverified Allergy, Unknown, 03/29/17) PMhx/Soc History of stroke with left-sided weakness post TPA, atrial fibrillation, pacemaker, hypertension, DVT, depression history of pacemaker and pacemaker replacement to the right chest, hysterectomy , gastric bypass, chronic pain syndrome, opioid dependence History of Surgery: Yes (PACEMAKER,HYSTERECTOMY,GASTRIC BYPASS) Anesthesia Reaction: No Hx Neurological Disorder: Yes (CVAs, TIA) Hx Respiratory Disorders: No Hx Cardiac Disorders: Yes (AFIB,PACEMAKER) Hx Psychiatric Problems: Yes (DEPRESSION) Hx Miscellaneous Medical Probl: Yes (HIGH CHOLESTEROL,DVT) Hx Alcohol Use: No Hx Substance Use: No Hx Tobacco Use: No Smoking Status: Never smoker FmHx Family History: No diabetes Physical Exam Vitals Vital Signs Date Time Temp Pulse Resp B/P Pulse Ox O2 Delivery O2 Flow Rate FiO2 03/29/17 08:26 98.1 60 20 104/66 97 Room Air 03/29/17 06:15 60 18 108/65 99 Room Air 03/29/17 06:08 Nasal Cannula 2 03/29/17 03:29 98.5 67 18 124/64 100 Physical Exam GENERAL: Well-developed, well-nourished, well-hydrated, in no apparent distress , looks nontoxic in appearance HEENT: Moist mucous membranes, pink conjunctiva, no cervical spine tenderness or step-off deformities, no goiter, no jaundice or icterus, extraocular movements intact without pain. No submandibular induration, and no pharyngeal erythema NEURO: Alert and oriented 3, cranial nerves II through XII intact bilaterally, pupils equal round reactive to light, no focal deficits or facial asymmetry, sensation intact distally Strength 5/5 in upper and lower extremities bilaterally CARDIAC: Regular rate and rhythm, no murmurs rubs or gallops LUNGS: Clear bilaterally no wheezing crackles or stridor ABDOMEN: Soft nontender, no guarding, no rigidity, no rebound, no psoas sign no obturator sign. Normoactive bowel sounds SKIN: Warm and dry to touch, no abrasions, contusions, or hematomas, no lacerations, no ecchymosis, no target lesions, and without ulcers EXTREMITIES: No clubbing cyanosis or edema, calves are bilaterally symmetrical, no Homans sign, no popliteal cord sign. Distal pulses equal and bilateral PSYCH: Normal affect without agitation or irritability Result Diagram: 03/29/1744 03/29/17 0544 Results 24 hrs Laboratory Tests Test 03/29/17 05:44 White Blood Count 5.410^3/ul Red Blood Count 3.3310^6/ul Hemoglobin 10.5g/dl Hematocrit 31.4% Mean Corpuscular Volume 94.3fl Mean Corpuscular Hemoglobin 31.5pg Mean Corpuscular Hemoglobin Concent 33.4g/dl Red Cell Distribution Width 13.4% Platelet Count 35554^3/UL Mean Platelet Volume 10.2fl Neutrophils % 59.3% Lymphocytes % 27.8% Monocytes % 8.3% Eosinophils % 3.5% Basophils % 0.9% Nucleated Red Blood Cells % 0.0/100WBC Neutrophils # (Manual) 3.210^3/ul Lymphocytes # 1.510^3/ul Monocytes # 0.510^3/ul Eosinophils # 0.210^3/ul Basophils # 0.110^3/ul Nucleated Red Blood Cells # 0.010^3/ul Sodium Level 141mmol/L Potassium Level 4.2mmol/L Chloride Level 103mmol/L Carbon Dioxide Level 28mmol/L Anion Gap 14 Blood Urea Nitrogen 24mg/dl Creatinine 0.65mg/dl Glucose Level 116mg/dl Calcium Level 8.9mg/dl Total Bilirubin 0.0mg/dl Direct Bilirubin 0.00mg/dl Indirect Bilirubin 0.0mg/dl Aspartate Amino Transf (AST/SGOT) 21IU/L Alanine Aminotransferase (ALT/SGPT) 27IU/L Alkaline Phosphatase 84IU/L Troponin I < 0.012ng/ml B-Type Natriuretic Peptide 297PG/ML Total Protein 6.1g/dl Albumin 3.2g/dl Globulin 2.90g/dl Albumin/Globulin Ratio 1.10 Current Medications Medications (Trade) Dose Ordered Sig/Neelam Route PRN Reason Start Time Stop Time Status Last Admin Dose Admin Sodium Chloride (NS) 500 ml @ 500 mls/hr Q1H STAT IV 03/29/17 03:32 03/29/17 04:31 DC 03/29/17 06:53 Morphine Sulfate (morphine) 4 mg ONCE STAT IV 03/29/17 03:32 03/29/17 03:34 DC 03/29/17 06:53 Ondansetron HCl (Zofran Inj) 4 mg ONCE STAT IV 03/29/17 03:32 03/29/17 03:34 DC 03/29/17 06:53 Ketorolac Tromethamine (Toradol) 15 mg ONCE STAT IV 03/29/17 06:44 03/29/17 07:02 DC 03/29/17 07:08 Oxycodone/ Acetaminophen (Percocet (5/ 325)) 1 tab ONCE ONCE PO 03/29/17 09:00 03/29/17 09:01 DC 03/29/17 09:08 Procedures/MDM IV line was established patient was placed on patient monitor rhythm strip revealed a sinus rhythm at about 70 beats with upright P and T waves. Patient was afebrile. One view chest x-ray performed read by me, there is atelectatic changes bilaterally and a pacemaker in the right chest, no acute infiltrates, no pneumothorax. EKG performed, read by me revealed a normal sinus rhythm at 67 bpm, normal axis , narrow QRS complex, no concerning ST elevations or depressions noted. CBC was normal, electrolytes revealed dehydration BUN/creatinine 24/0.7, liver function tests normal, troponin negative, BNP negative. I administered 1 L normal saline intravenously for dehydration, morphine 4 mg IV , Zofran 4 mg IV with good effect. Pain resolved. Patient was also treated with Toradol 15 mg IV prior to discharge. I reviewed past medical history and spoke to the patient regarding her symptoms , management will continue as an outpatient. Differential diagnoses considered, included but not limited to acute coronary syndrome, pulmonary embolism, aortic dissection, abdominal aortic aneurysm, sepsis, stroke, meningitis, encephalitis, pneumonia, appendicitis, cholecystitis , bowel obstruction, pyelonephritis, nephrolithiasis, cystitis, as well as metabolic, hematologic, and electrolyte abnormalities. As well as abscess, cellulitis, fractures, and dislocations. Patient feels much better at this time, and vital signs are normal, symptoms have improved. I did give strict instructions to return to the ED if symptoms continue or worsen, patient will otherwise follow-up with primary care physician. Patient understood instructions and agreed to plan. Disclaimer: Inadvertent spelling and grammatical errors are likely due to EHR/ dictation software use and do not reflect on the overall quality of patient care. Also, please note that the electronic time recorded on this note does not necessarily reflect the actual time of the patient encounter. Departure Diagnosis: Primary Impression: Chest pain Chest pain type: unspecified Qualified Code: R07.9 - Chest pain, unspecified type Additional Impressions: Dehydration Chronic pain syndrome Condition: Good Patient Instructions: Chronic Pain, Chest Pain, Uncertain Cause Referrals: YURIDIA BOWIE (PCP) EDUIN NORRIS MD Mar 29, 2017 06:51
[2017-03-29 08:26] VITALS: BP 104/66; PULSE 60; RESP 20; TEMP 98.1
[2017-03-29] MEDS ORDERED: OXYCODONE/ACETAMINOPHEN (5/325) TAB PO ONE (09:00)
== END 2017-03-29 09:15 | disposition home or self-care (01) ==
LOC: E/R 03:21
DX: R07.9 Chest pain, unspecified (principal); E86.0 Dehydration; G89.4 Chronic pain syndrome; I10 Essential (primary) hypertension; Z95.0 Presence of cardiac pacemaker; Z79.01 Long term (current) use of anticoagulants
CPT/HCPCS: 71010; 80053; 83880; 84484; 85025; 93005; 96374; 96375; 99285; J1885; J2270; J2405; J7040

== ENCOUNTER 2017-04-11 00:23 | Emergency (ER) | payer OTHER, MEDICAID ==
[~2017-04-11] VITALS: Ht 162.6 cm; Wt 69.1 kg
[~2017-04-11 00:23] MED LIST changes: -ALBU8.5H3 INH; +DEXT1CAP PO; -IMO2 PO; -MAGN400T28 PO; +NAPR-260 PO; +POTA10TA37 PO
[2017-04-11 00:39] VITALS: Ht 162.6 cm; Wt 69.1 kg
[2017-04-11 02:05] LABS: BASOPHIL # 0.1 10^3/ul (0.0-0.1); BASOPHILS % 0.8 % (0.0-2.0); EOSINOPHILS # 0.2 10^3/ul (0.0-0.5); EOSINOPHILS % 3.3 % (0.0-7.0); HEMATOCRIT 34.5 % (37.0-47.0); HEMOGLOBIN 11.6 g/dl (12.0-16.0); LYMPHOCYTES # 1.8 10^3/ul (0.8-2.9); LYMPHOCYTES % 29.5 % (15.0-51.0); MEAN CORPUSCULAR HEMOGLOBIN 31.9 pg (29.0-33.0); MEAN CORPUSCULAR HGB CONC 33.6 g/dl (32.0-37.0); MEAN CORPUSCULAR VOLUME 94.8 fl (82.0-101.0); MEAN PLATELET VOLUME 10.4 fl (7.4-10.4); MONOCYTE # 0.5 10^3/ul (0.3-0.9); MONOCYTES % 8.7 % (0.0-11.0); NEUTROPHILS % 57.5 % (39.0-77.0); PLATELET COUNT 136 10^3/UL (140-415); RED BLOOD COUNT 3.64 10^6/ul (4.20-5.40); RED CELL DISTRIBUTION WIDTH 13.5 % (11.5-14.5)
--- NOTE | 2017-04-11 02:13 | RADRPT ---
PROCEDURE: Portable chest x-ray. CLINICAL INDICATION: 66 years of age, female. Chest pain. TECHNIQUE: Portable AP view of the chest. COMPARISON: March 29, 2017 FINDINGS: Dual lead right subclavian pacemaker with electrodes over right atrium and right ventricle is in unc hanged position. Atherosclerotic calcification thoracic aorta. Normal heart size. Mediastinal contours are stable. Decreased lung volumes with vascular crowding versus mild edema. Negative for focal lung consolidati on. Negative for pleural effusion or pneumothorax. No acute bony abnormality. Surgical clips in upper abdomen are unchanged. There is a ring-shaped hyperdensity in the left upper quadrant adjacent to a surgical clip that may be related to the gastric cardia that is unchanged. IMPRESSION: Decreased lung volumes with vascular crowding versus mild edema. RPTAT: HCTS Physician Miri Date Time Electronically viewed and signed by Physician Miri on 04/11/2017 02:12 /
[2017-04-11 02:25] LABS: ALANINE AMINOTRANSFERASE 29 IU/L (13-69); ALBUMIN 3.5 g/dl (3.3-4.9); ALBUMIN/GLOBULIN RATIO 1.29; ALKALINE PHOSPHATASE 90 IU/L (42-121); ANION GAP 10 (8-16); ASPARTATE AMINO TRANSFERASE 25 IU/L (15-46); BLOOD UREA NITROGEN 18 mg/dl (7-20); CALCIUM 8.8 mg/dl (8.4-10.2); CARBON DIOXIDE 27 mmol/L (21-31); CHLORIDE 111 mmol/L (97-110); CREATININE 0.64 mg/dl (0.44-1.00); GLUCOSE 116 mg/dl (70-220); SODIUM 144 mmol/L (135-144); TOTAL PROTEIN 6.2 g/dl (6.1-8.1)
[2017-04-11 02:32] LABS: B-TYPE NATRIURETIC PEPTIDE 200 PG/ML (0-125)
[2017-04-11 02:38] LABS: TROPONIN-I < 0.012 ng/ml (0.00-0.12)
--- NOTE | 2017-04-11 04:25 | ERD ---
ER Documentation Chief Complaint Date/Time DATE: 04/11/17 TIME: 04:24 Chief Complaint chest pain x 2 hours HPI 66-year-old female chest pain for 2 hours. Chest pain is right-sided with no exacerbating or alleviating factors. Pain mild to moderate intensity. No shortness of breath. No diaphoresis. No other current complaints. ROS All systems reviewed and are negative except as per history of present illness. Medications Home Meds Active Scripts Naproxen* (Naprosyn*) 500 Mg Tablet, 500 MG PO BID Y for PAIN AND/OR INFLAMMATION, #30 TAB Prov:EDUIN NORRIS MD 03/29/17 Temazepam* (Restoril*) 15 Mg Capsule, 15 MG PO HS Y for INSOMNIA for 30 Days, CAP Prov:ISRAEL MCKEON M.D. 03/27/17 Diclofenac Sodium* (Voltaren* Gel) 1% -100 Gm Gel, 2 GM TOP TID Y for PAIN for 30 Days, #1 TUB Prov:ISRAEL MCKEON M.D. 03/27/17 Tramadol HCl (Tramadol HCl) 50 Mg Tablet, 50 MG PO Q4 Y for PAIN, #20 TAB Prov:ROSEMARY CHAIDZE 12/22/16 Apixaban* (Eliquis*) 5 Mg Tablet, 5 MG PO BID, #60 TAB Prov:BLAKE ACEVEDO 12/10/16 Reported Medications Dextromethorphan Hbr/Quinidine (NUEDEXTA 20-10 MG CAPSULE) 1 Each Capsule, 1 EACH PO, CAP 03/29/17 Olanzapine* (Zyprexa*) 5 Mg Tablet, 5 MG PO DAILY, #30 TAB 03/29/17 Potassium Chloride* (K-Dur*) 10 Meq Tab.prt.sr, 10 MEQ PO DAILY, TAB 03/29/17 Mv,Ca,Min/Iron Fum/Fa/Lyco/Lut (COMPLETE MULTI TABLET) 1 Each Tablet, 1 EACH PO , TAB 11/20/16 Sertraline Hcl* (Sertraline Hcl*) 50 Mg Tablet, 50 MG PO DAILY, #30 TAB 11/20/16 Sennosides* (Senna Lax*) 8.6 Mg Tablet, 1 TAB PO BID Y for CONSTIPATION, TAB 11/20/16 Atorvastatin* (Atorvastatin*) 40 Mg Tablet, 40 MG PO QHS, #30 TAB 11/20/16 Allergies Allergies: Coded Allergies: Penicillins (Unverified Allergy, Unknown, 03/29/17) adhesive tape (Unverified Allergy, Unknown, 03/29/17) aspirin (Unverified Allergy, Unknown, 03/29/17) PMhx/Soc History of Surgery: Yes (pacemaker, bladder uplift, appendectomy, hysterectomy) Anesthesia Reaction: No Hx Neurological Disorder: Yes (tia, cva with no residual effect) Hx Respiratory Disorders: No Hx Cardiac Disorders: Yes (AFIB,PACEMAKER) Hx Psychiatric Problems: Yes (major depressive disorder, anxiety, bipolar) Hx Miscellaneous Medical Probl: Yes (HIGH CHOLESTEROL,DVT) Hx Alcohol Use: No Hx Substance Use: No Hx Tobacco Use: No Smoking Status: Never smoker Physical Exam Vitals Vital Signs Date Time Temp Pulse Resp B/P Pulse Ox O2 Delivery O2 Flow Rate FiO2 04/11/17 00:51 Nasal Cannula 2 04/11/17 00:39 98.9 65 20 104/62 97 Physical Exam Const: [] Head: Atraumatic Eyes: Normal Conjunctiva ENT: Normal External Ears, Nose and Mouth. Neck: Full range of motion..~ No meningismus. Resp: Clear to auscultation bilaterally Cardio: Regular rate and rhythm, no murmurs Abd: Soft, non tender, non distended. Normal bowel sounds Skin: No petechiae or rashes Back: No midline or flank tenderness Ext: No cyanosis, or edema Neur: Awake and alert Psych: Normal Mood and Affect Result Diagram: 04/11/17 0123 04/11/17 0123 Results 24 hrs Laboratory Tests Test 04/11/17 01:23 White Blood Count 6.010^3/ul Red Blood Count 3.6410^6/ul Hemoglobin 11.6g/dl Hematocrit 34.5% Mean Corpuscular Volume 94.8fl Mean Corpuscular Hemoglobin 31.9pg Mean Corpuscular Hemoglobin Concent 33.6g/dl Red Cell Distribution Width 13.5% Platelet Count 33208^3/UL Mean Platelet Volume 10.4fl Neutrophils % 57.5% Lymphocytes % 29.5% Monocytes % 8.7% Eosinophils % 3.3% Basophils % 0.8% Nucleated Red Blood Cells % 0.0/100WBC Neutrophils # (Manual) 3.510^3/ul Lymphocytes # 1.810^3/ul Monocytes # 0.510^3/ul Eosinophils # 0.210^3/ul Basophils # 0.110^3/ul Nucleated Red Blood Cells # 0.010^3/ul Sodium Level 144mmol/L Potassium Level 4.0mmol/L Chloride Level 111mmol/L Carbon Dioxide Level 27mmol/L Anion Gap 10 Blood Urea Nitrogen 18mg/dl Creatinine 0.64mg/dl Glucose Level 116mg/dl Calcium Level 8.8mg/dl Total Bilirubin 0.0mg/dl Direct Bilirubin 0.00mg/dl Indirect Bilirubin 0.0mg/dl Aspartate Amino Transf (AST/SGOT) 25IU/L Alanine Aminotransferase (ALT/SGPT) 29IU/L Alkaline Phosphatase 90IU/L Troponin I < 0.012ng/ml B-Type Natriuretic Peptide 200PG/ML Total Protein 6.2g/dl Albumin 3.5g/dl Globulin 2.70g/dl Albumin/Globulin Ratio 1.29 Procedures/MDM EKG: Rate/Rhythm: [Normal Sinus Rhythm] QRS, ST, T-waves: [No changes consistent w/ acute ischemia] Impression: [No evidence of ischemia or arrhythmia] Chest X-ray 1V Interpreted by me: Soft Tissue: No acute abnormalities Bones: No acute abnormalities Mediastinum/Cardiac Silhouette/Lungs: [No acute abnormalities] Patient's thoracic symptoms have stabilized while in the department and are stable for outpatient follow up. Exam and work up not consistent w/ ischemia, arrhythmia, PE or dissection. Departure Diagnosis: Primary Impression: Chest pain Chest pain type: unspecified Qualified Code: R07.9 - Chest pain, unspecified type Condition: Stable ROSEMARY CHAIDEZ Apr 11, 2017 04:25
[2017-04-11] MEDS ORDERED: ACETAMINOPHEN 325 MG TAB PO ONE (06:00)
[2017-04-11 08:10] VITALS: BP 118/56; PULSE 72; RESP 18; TEMP 98.1
== END 2017-04-11 08:11 | disposition home or self-care (01) ==
LOC: E/R 00:23
DX: R07.9 Chest pain, unspecified (principal); R06.00 Dyspnea, unspecified; R40.2142 Coma scale, eyes open, spontaneous, at arrival to emergency department; R40.2252 Coma scale, best verbal response, oriented, at arrival to emergency department; R40.2362 Coma scale, best motor response, obeys commands, at arrival to emergency department; Z95.0 Presence of cardiac pacemaker; Z98.61 Coronary angioplasty status
CPT/HCPCS: 71010; 80053; 83880; 84484; 85025; 93005

== ENCOUNTER 2017-10-26 21:59 | Emergency (ER) | END 2017-10-27 03:19 | disposition home or self-care (01) ==

== ENCOUNTER 2018-01-15 15:00 | Emergency (ER) | END 2018-01-15 21:58 | disposition home or self-care (01) ==

== ENCOUNTER 2018-01-27 02:58 | Emergency (ER) | END 2018-01-27 05:59 | disposition home or self-care (01) ==